=== PATIENT | female | born 2000 | race Caucasian/White ===

== ENCOUNTER 2021-10-13 10:01 | Outpatient (CLI) | payer OTHER, SELFPAY ==
[2021-10-13 10:21] LABS: Absolute Lymphocyte Count 1.53 X10^3/uL (0.83-4.51); Absolute Neutrophil Count 6.1 X10^3/uL (2.0-7.7); Basophil# 0.03 X10^3/uL; Basophil% 0.4 % (0-1); Eosinophil# 0.11 X10^3/uL; Eosinophils% 1.3 % (0-5); Hematocrit 37.1 % (37-47); Hemoglobin 12.4 g/dL (12.0-15.0); Lymphocyte # 1.53 X10^3/ul (0.83-4.51); Lymphocyte % 18.2 % (19-41); Mean Corp Hgb Conc 33.4 g/dL (32-36); Mean Corpuscular Volume 83.7 fL (81-99); Mean Platelet Vol. 9.2 fl (6.2-12.0); Monocyte# 0.59 X10^3/uL; NRBC Flagged by Analyzer 0 % (0-5); Neutrophil # 6.11 X10^3/uL (2.7-7.7); Neutrophil % 72.9 % (47-70); Platelet Count 291 K/mm3 (150-450); RBC Distribution Width CV 13.4 % (11.6-14.6); RBC Distribution Width SD 41.6 fl (35.1-43.9); Red Blood Count 4.43 M/mm3 (4.2-5.4); White Blood Count 8.4 K/mm3 (4.4-11.0)
[2021-10-13 11:27] LABS: HIV - WCH Non-Reactive (Nonreactive); Hepatitis B Surface Antigen Non-Reactive (Nonreactive); Hepatitis C Antibody Non-Reactive (Nonreactive); Rubella IgG Reactive (Nonreactive); Syphilis Antibodies Non-reactive
[2021-10-13 11:41] LABS: Amphetamine Urine VISTA NEGATIVE (<1000 ng/mL); Barbiturate Urine VISTA NEGATIVE (< 200 ng/mL); Benzodiazepine Urine VISTA NEGATIVE (< 200 ng/mL); Cocaine Urine VISTA NEGATIVE (< 300 ng/mL); Ecstacy Urine VISTA NEGATIVE (< 500 ng/mL); Methadone Urine VISTA NEGATIVE (< 300 ng/mL); PCP Urine VISTA NEGATIVE (< 25 ng/mL); THC Urine VISTA NEGATIVE (< 50 ng/mL); Vista UDS pH Range 6
[2021-10-15 00:06] LABS: Chlamydia By Nucleic Acid AMP Negative (Negative)
[2021-10-17 13:26] LABS: Gonococcus By Nucleic Acid AMP Negative (Negative)
[2021-10-17 21:47] LABS: HPV Reflexed? NOT INDICATED
== END 2021-10-13 23:59 | disposition short-term general hospital (02) ==
PROVIDERS: Referring Provider Obstetrics & Gynecology; Visit Provider Obstetrics & Gynecology
DX: Z34.90 Encounter for supervision of normal pregnancy, unspecified, unspecified trimester (principal)
CPT/HCPCS: 36415; 80307; 85025; 86703; 86762; 86780; 86803; 86850; 86900; 86901; 87086; 87088; 87340; 87491; 87591; 88175; G0145

== ENCOUNTER → 2022-02-27 | Outpatient (CLI) | payer OTHER, SELFPAY ==
[2022-02-27 12:43] LABS: Absolute Lymphocyte Count 1.31 X10^3/uL (0.83-4.51); Absolute Neutrophil Count 6.2 X10^3/uL (2.0-7.7); Basophil# 0.01 X10^3/uL; Basophil% 0.1 % (0-1); Eosinophil# 0.09 X10^3/uL; Eosinophils% 1.1 % (0-5); Hematocrit 34.4 % (37-47); Hemoglobin 11.3 g/dL (12.0-15.0); Lymphocyte # 1.31 X10^3/ul (0.83-4.51); Lymphocyte % 16.2 % (19-41); Mean Corp Hgb Conc 32.8 g/dL (32-36); Mean Corpuscular Hgb 28.3 pg (27.0-32.0); Mean Platelet Vol. 9.2 fl (6.2-12.0); NRBC Flagged by Analyzer 0 % (0-5); Neutrophil # 6.21 X10^3/uL (2.7-7.7); Neutrophil % 76.9 % (47-70); Platelet Count 303 K/mm3 (150-450); RBC Distribution Width CV 13.1 % (11.6-14.6); RBC Distribution Width SD 40.8 fl (35.1-43.9); White Blood Count 8.1 K/mm3 (4.4-11.0)
[2022-02-27 13:03] LABS: Glucose Challenge Gest 1H 50g 139 mg/dL (70-140)
== END | disposition home or self-care (01) ==
LOC: PAVLAB 11:11 → LAB 11:18
PROVIDERS: Referring Provider Obstetrics & Gynecology; Visit Provider Obstetrics & Gynecology
DX: Z13.1 Encounter for screening for diabetes mellitus (principal)
CPT/HCPCS: 36415; 82950; 85025

== ENCOUNTER → 2022-03-03 | Outpatient (CLI) | payer OTHER, SELFPAY ==
[2022-03-03 07:35] LABS: Glucose GTT-Gestation. Fasting 91 mg/dL (<105)
[2022-03-03 09:19] LABS: Glucose GTT-Gestational 1 Hr 153 mg/dL (<190)
[2022-03-03 09:35] LABS: Glucose GTT-Gestational 2 Hr 131 mg/dL (<165)
[2022-03-03 10:54] LABS: Glucose GTT-Gestational 3 Hr 115 L (<145)
== END | disposition home or self-care (01) ==
PROVIDERS: Referring Provider Obstetrics & Gynecology; Visit Provider Obstetrics & Gynecology
DX: Z13.1 Encounter for screening for diabetes mellitus (principal)
CPT/HCPCS: 36415; 82951; 82952

== ENCOUNTER → 2022-04-24 | Outpatient (CLI) | payer OTHER, SELFPAY | END | disposition home or self-care (01) | PROVIDERS: Visit Provider Obstetrics & Gynecology | DX: Z34.03 Encounter for supervision of normal first pregnancy, third trimester (principal) | CPT/HCPCS: 87081 ==

== ENCOUNTER 2022-05-26 02:25 | Inpatient (IN) | payer OTHER, SELFPAY ==
[2022-05-26] VITALS (193 sets, daily range): BP systolic 93–178; BP diastolic 44–107; PULSE 76–140; RESP 12–18; TEMP 36.3–36.9; O2SAT 89–100; BMI 38.4
--- NOTE | 2022-05-26 02:46 | HP.PCM.OB_ITS ---
HPI - General General Date of Admission: 05/26/22 HPI Narrative SPRING BURR, is a 22 F who presents with contractions and elevated blood pressure no vb lof admits good fm no motta bv Maternal Data Information DOMENICO Calculator Estimated Delivery Date Method Current WG Current Estimate 05/21/22 LMP (Certain) 40w 5d PFSH PFSH Home Medications vitamin no.102-iron 90 mg-folate 1 mg-dha 200 mg capsule 1 cap PO DAILY 10/05/21 [History Last Taken Unknown] Allergy/AdvReac Type Severity Reaction Status Date / Time No Known Allergies Allergy Verified 05/26/22 02:08 Social History household members: spouse housing: house current occupational status: employed current occupation: [employer] pets and animals: Yes history of recent travel: No sexually active: Yes Smoking Status: Never smoker alcohol intake: never substance use type: does not use caffeine: Yes seatbelt use: always do you feel safe at home: Yes 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 History 1 Elective abortions Hx Para Spontaneous abortions Hx # Term Pregnancies Ectopic pregnancies Hx # Pregnancies Multiple births # of living children Visit Details Expected Delivery Route/Plan Labor Preferences- CB/BF classes: encouraged labor support person: Antonio labor intervention preferences: [] pain management options preferred: limited intervention cut cord/dad catch: yes : pump PP control planned: discussed discussed possible routes of delivery and associated risks: [] special requests: [] Plans Covid status: discussed Flu vaccine: discussed Tdap vaccine: given Rhogam: NA LARC form signed:yes movement and labor precautions reviewed. Problem list reviewed and updated with the most current plan of care details and appropriate orders placed. Relevant counseling for the gestational age provided. Continue routine care and follow up unless otherwise noted in visit notes/problem list details OB Flowsheet Initial Weight: 180 lb Date -?-?-?-?-?-?-?-?-?-?-?-?- EGA Weight BP Urine Prot -?-?-?-?-?-?-?-?-?-?-?-?- Glucose FHR FuHt Pres Dilation -?-?-?-?-?-?-?-?-?-?-?-?- Effaced St Visit Note 11/10/21 -?-?-?-?-?-?-?-?-?-?-?-?- 12w 4d 184 lb (+4 lb) 130/88 Negative -?-?-?-?-?-?-?-?-?-?-?-?- Negative -?-?-?-?-?-?-?-?-?-?-?-?- JV- 2nd ob visit today. used hand held ultrasound to find heart tones (150's- 160's) 12/12/21 -?-?-?-?-?-?-?-?-?-?-?-?- 17w 1d 187 lb (+7 lb) 132/84 Negative -?-?-?-?-?-?-?-?-?-?-?-?- Negative 150 -?-?-?-?-?-?-?-?-?-?-?-?- SM- no vb addie ng doing well 01/11/22 -?-?-?-?-?-?-?-?-?-?-?-?- 21w 3d 198 lb (+18 lb) 124/76 Negative -?-?-?-?-?-?-?-?-?-?-?-?- Negative 156 -?-?-?-?-?-?-?-?-?-?-?-?- MH-No VB, LOF. G ood FM. Nl anatomy Girl! 02/06/22 -?-?-?-?-?-?-?-?-?-?-?-?- 25w 1d 206 lb (+26 lb) 132/84 -?-?-?-?-?-?-?-?-?-?-?-?- 150 25 -?-?-?-?-?-?-?-?-?-?-?-?- Sm- no vb lof go od fm noreular ctx 02/27/22 -?-?-?-?-?-?-?-?-?-?-?-?- 28w 1d 214 lb 8 oz (+34 lb 8 oz) 118/70 Negative -?-?-?-?-?-?-?-?-?-?-?-?- Negative 148 28 -?-?-?-?-?-?-?-?-?-?-?-?- MH=No VB, LOF. G ood FM. 28 wk labs, larc, tdap. 03/15/22 -?-?-?-?-?-?-?-?-?-?-?-?- 30w 3d 218 lb 4 oz (+38 lb 4 oz) 116/70 Negative -?-?-?-?-?-?-?-?--?-?-?-?- Negative 133 32 -?-?-?-?-?-?-?-?-?-?-?-?- JV- no complaint s today. no lof, vaginal bleeding, or dec fm. 03/27/22 -?-?-?-?-?-?-?-?-?-?-?-?- 32w 1d 222 lb 2 oz (+42 lb 2 oz) 117/74 Negative -?-?-?-?-?-?-?-?-?-?-?-?- Negative 140 34 -?-?-?-?-?-?-?-?-?-?-?-?- SM- no vb lof go od fm nor egular ctx 04/12/22 -?-?-?-?-?-?-?-?-?-?-?-?- 34w 3d 228 lb (+48 lb) 118/72 Negative -?-?-?-?-?-?-?-?-?-?-?-?- Negative 151 35 -?-?-?-?-?-?-?-?-?-?-?-?- MH-NO Vb, LOF. G ood FM. 04/24/22 -?-?-?-?-?-?-?-?-?-?-?-?- 36w 1d 234 lb 2 oz (+54 lb 2 oz) 131/84 Negative -?-?-?-?-?-?-?-?-?-?-?-?- Negative 145 36 Cephalic -?-?-?-?-?-?-?-?-?-?-?-?- SM- no vb lof go od fm no regular ctx SM- no vb lof good fm no reg ular ctx gbs 05/08/22 -?-?-?-?-?-?-?-?-?-?-?-?- 38w 1d 236 lb (+56 lb) 132/86 Negative -?-?-?-?-?-?--?-?-?-?-?-?- Negative 150 38 Cephalic 0 -?-?-?-?-?-?-?-?-?-?-?-?- SM- no vb lof go od fm no regular ctx 05/17/22 -?-?-?-?-?-?-?-?-?-?-?-?- 39w 3d 240 lb 8 oz (+60 lb 8 oz) 130/86 Trace -?-?-?-?-?-?-?-?-?-?-?-?- Negative 145 38 Cephalic 1 -?-?-?-?-?-?-?-?-?-?-?-?- -3 JV- exam difficult today external os at least one cm. labor precautions discussed. no complaints of headche, blurry vision, ruq pain.. 05/23/22 -?-?-?-?-?-?-?-?-?-?-?-?- 40w 2d 241 lb 2 oz (+61 lb 2 oz) 138/82 Negative -?-?-?-?-?-?-?-?-?-?-?-?- Negative 148 Cephalic 1 -?-?-?-?-?-?-?-?-?-?-?-?- 70 -3 JV-no lof, vag bleeding, or dec fm. she is requesting IOL 05/26/22 -?-?-?-?-?-?-?-?-?-?-?-?- 40w 5d 238 lb (+58 lb) 149/105 161/107 156/100 -?-?-?-?-?-?-?-?-?-?-?-?- -?-?-?-?-?-?-?-?-?-?-?-?- NST FHR Rate Baby A Baseline: 140 Variability:: Moderate Accelerations:: 15 x 15 Decelerations:: None NST Reactive:: Yes FHR Category:: Category I Uterine Activity:: q3-5 ROS Constitutional Constitutional: Reports systems reviewed and no addt'l complaints, except as documented ENT HEENT: Reports systems reviewed and no addt'l complaints, except as documented Cardiovascular Cardiovascular: Reports systems reviewed and no addt'l complaints, except as documented Respiratory/Chest Respiratory/Chest: Reports systems reviewed and no addt'l complaints, except as documented Gastrointestinal Gastrointestinal: Reports systems reviewed and no addt'l complaints, except as documented and nausea; Denies abdominal pain Genitourinary Genitourinary: Reports systems reviewed and no addt'l complaints, except as documented, contractions Details: present and frequency (regular ) and movement Details: present Musculoskeletal Musculoskeletal: Reports systems reviewed and no addt'l complaints, except as documented Integumentary Integumentary: Reports as per HPI Neurologic Neurologic: Reports systems reviewed and no addt'l complaints, except as documented Endocrine Endocrinology: Reports systems reviewed and no addt'l complaints, except as documented Vital Signs Vital Signs Vital Signs: 05/26/22 01:59 05/26/22 01:59 05/26/22 01:59 Temperature Temperature Source Pulse Rate 116 H Blood Pressure 149/105 H BP Systolic 149 BP Diastolic 105 Pulse Ox 99 05/26/22 01:59 05/26/22 01:59 05/26/22 02:04 Temperature 97.8 F Temperature Source Temporal Pulse Rate 113 H Blood Pressure BP Systolic BP Diastolic Pulse Ox 05/26/22 02:04 05/26/22 02:09 05/26/22 02:09 Temperature Temperature Source Pulse Rate 111 H Blood Pressure BP Systolic BP Diastolic Pulse Ox 99 99 05/26/22 02:14 05/26/22 02:14 05/26/22 02:15 Temperature Temperature Source Pulse Rate 106 H Blood Pressure 161/107 H BP Systolic 161 BP Diastolic 107 Pulse Ox 99 05/26/22 02:15 05/26/22 02:19 05/26/22 02:19 Temperature Temperature Source Pulse Rate 109 H 110 H Blood Pressure BP Systolic BP Diastolic Pulse Ox 99 05/26/22 02:24 05/26/22 02:24 05/26/22 02:29 Temperature Temperature Source Pulse Rate 115 H 116 H Blood Pressure BP Systolic BP Diastolic Pulse Ox 99 05/26/22 02:29 05/26/22 02:31 05/26/22 02:31 Temperature Temperature Source Pulse Rate 100 Blood Pressure 156/100 H BP Systolic 156 BP Diastolic 100 Pulse Ox 99 05/26/22 02:34 05/26/22 02:34 05/26/22 02:39 Temperature Temperature Source Pulse Rate 110 H 114 H Blood Pressure BP Systolic BP Diastolic Pulse Ox 98 05/26/22 02:39 05/26/22 02:44 05/26/22 02:44 Temperature Temperature Source Pulse Rate 110 H Blood Pressure BP Systolic BP Diastolic Pulse Ox 100 98 Weight Weight: 238 lb Body Mass Index (BMI) 38.4 Physical Exam Const alert, oriented x3 and healthy appearing Constitutional Narrative: uncomfortable with contractions HEENT normocephalic and moist oral mucous membranes Head and Scalp: atraumatic Neck full ROM, no lymphadenopathy, supple and thyroid normal General: trachea midline Thyroid: thyroid normal Lymph Lymphatic: no lymphadenopathy noted Chest inspection of chest normal Resp normal respiratory effort Cardio regular rate GI normal to inspection, nondistended, normoactive bowel sounds, soft to palpation and non-tender Inspection: gravid external exam normal Bimanual Exam - Vag & Uterus: uterus non-tender Manual OB Exam: estimated gestational size appropriate, presentation cephalic, dilated, effaced and station Extremity normal to inspection General Extremity: Negative for edema Skin no rashes or lesions noted Neuro deep tendon reflexes 2+ bilaterally Motor Exam: strength 5/5 throughout and clonus absent Psych mental status grossly normal Labs Labs Labs: Blood Type O POSITIVE Antibody Screen NEGATIVE Hct 34.4 % (37-47) L Hgb 11.3 g/dL (12.0-15.0) L Syphilis Total Ab Non-reactive Rubella IgG Antibody Reactive (Nonreactive) Hep Bs Antigen Non-Reactive (Nonreactive) Chlamydia DNA (CHITO) Negative (Negative) Neisseria gonorrhoeae DNA ([facility]ITO) Negative (Negative) HIV 1&2 Antibody Non-Reactive (Nonreactive) Glucose 1 Hr 50 gm 139 mg/dL (70-140) Assessment & Plan (1) Abnormal glucose affecting : COMMENT: nl 3 hr gtt (2) Supervision of normal first : QUALIFIERS: Trimester: third trimester Qualified Code(s): Z34.03 - Encounter for supervision of normal first , third trimester COMMENT: PRR DOMENICO 05/21/22 girl Chelita spouse: antonio (3) : QUALIFIERS: Weeks of gestation: 39 weeks Qualified Code(s): Z3A.39 - 39 weeks gestation of COMMENT: GBS neg. nipt carrier ntd screening declined. anatomy nl (4) Gestational hypertension: COMMENT: admit IOL if doesn't make cervical change PLAN: Plan Patient presents IAL, plan expectant management for , pitocin/AROM PRN if needed. Pain management: plans epidural. GBS neg. Management of any complications: none I have reviewed the [facility] and made any clinically relevant updates.
[2022-05-26 02:58] LABS: Absolute Lymphocyte Count 1.71 X10^3/uL (0.83-4.51); Absolute Neutrophil Count 8.4 X10^3/uL (2.0-7.7); Basophil# 0.02 X10^3/uL; Basophil% 0.2 % (0-1); Eosinophil# 0.09 X10^3/uL; Eosinophils% 0.8 % (0-5); Hematocrit 34.7 % (37-47); Hemoglobin 10.8 g/dL (12.0-15.0); Lymphocyte # 1.71 X10^3/ul (0.83-4.51); Lymphocyte % 15.7 % (19-41); Mean Corp Hgb Conc 31.1 g/dL (32-36); Mean Corpuscular Hgb 25.3 pg (27.0-32.0); Mean Corpuscular Volume 81.3 fL (81-99); Mean Platelet Vol. 10.2 fl (6.2-12.0); Monocyte# 0.64 X10^3/uL; Monocyte% 5.9 % (0-10); NRBC Flagged by Analyzer 0 % (0-5); Neutrophil # 8.39 X10^3/uL (2.7-7.7); Neutrophil % 76.8 % (47-70); Platelet Count 328 K/mm3 (150-450); RBC Distribution Width CV 15.3 % (11.6-14.6); RBC Distribution Width SD 44.1 fl (35.1-43.9); Red Blood Count 4.27 M/mm3 (4.2-5.4); White Blood Count 10.9 K/mm3 (4.4-11.0)
[2022-05-26] MEDS: Lactated Ringers 1,000 ML 50 ML IV ×3 (03:05→19:22)
[2022-05-26] MEDS: Labetalol (Prefilled) 20 MG/4 ML IV ×3 (03:08→21:03)
[2022-05-26] MEDS: Magnesium Sulfate 4gm/100mL 4 GM/100 ML IV.SOLN. IV ×2 (03:10→21:20)
[2022-05-26 03:13] LABS: AST(SGOT) 26 U/L (15-37); Alanine Aminotransfer ALT/SGPT 20 U/L (13-56); Creatinine, Serum 0.74 mg/dL (0.55-1.02); EST Glomerular Filtration Rate 103 mL/min (>60); Est Glom Filt Rate - Afr Amer 124 mL/min (>60); Estimated Creatinine Clearance 109.74 ml/min; Uric Acid 4.8 mg/dL (2.6-6.0)
[2022-05-26] MEDS: Magnesium Sulfate 4gm/100mL 2 GM/50 ML IV.SOLN. IV (03:29)
[2022-05-26] MEDS: Magnesium Sulfate 20 GM/500 ML BAG IV ×2 (03:42→20:00)
[2022-05-26] MEDS: Labetalol 100 MG Tablet PO ×3 (04:53→20:11)
[2022-05-26 06:26] LABS: Protein, Urine (Random) 56.4 mg/dL (<11.9); Protein:Creat Ratio 455 mg/g CRE (0-200)
[2022-05-26] MEDS: Oxytocin 30 units/NS 500 ml 30 UNITS/500 ML IV.SOLN IV (06:35)
[2022-05-26] MEDS: LACTATED RINGERS 500 ML 999 ML IV ×3 (09:17→15:12)
[2022-05-26] MEDS: fentaNYL-bupivacaine (epidural) 100 ML BAG EPIDURAL ×4 (10:11→22:15)
[2022-05-26] MEDS: Ondansetron 4 MG/2 ML Vial IV (20:19)
[2022-05-26] MEDS: 0.9% Saline Lock 10 ML Syringe IV ×3 (20:20→21:25)
[2022-05-26] MEDS: fentaNYL 100 MCG/2 ML Ampul IV (21:25)
--- NOTE | 2022-05-26 21:46 | NURSING ---
magnesium sulfate 4gm bolus completed. rate changed to 2g/hr. verified with Guerrero DE LA CRUZ
--- NOTE | 2022-05-26 21:54 | PCM.PN.BLA ---
Progress Note cervical swelling now with increased pain but 6 cm, magnesium restarted with a bolus due to increased hyperreflexia and severely elevated bps. now redosed the epidural and more comfortable fht 130 min to mod variability no decels cat II overall reassuring
[2022-05-27] VITALS (70 sets, daily range): BP systolic 90–146; BP diastolic 52–82; PULSE 91–118; RESP 16–18; TEMP 36.1–37.1; O2SAT 91–100
[2022-05-27] MEDS: fentaNYL-bupivacaine (epidural) 100 ML BAG EPIDURAL ×2 (01:15→06:53)
[2022-05-27] MEDS: 0.9% Saline Lock 10 ML Syringe IV ×2 (01:26→01:33)
[2022-05-27] MEDS: Ondansetron 4 MG/2 ML Vial IV (01:33)
[2022-05-27] MEDS: Magnesium Sulfate 20 GM/500 ML BAG IV ×2 (06:53→17:00)
[2022-05-27] MEDS: Oxytocin 30 units/NS 500 ml 30 UNITS/500 ML IV.SOLN 334 UNITS IV (08:05)
--- NOTE | 2022-05-27 08:43 | EX.PCM.OBRPT ---
Assessment & Plan (1) : QUALIFIERS: Weeks of gestation: 39 weeks Qualified Code(s): Z3A.39 - 39 weeks gestation of COMMENT: GBS neg. nipt carrier ntd screening declined. anatomy nl (2) Supervision of normal first : QUALIFIERS: Trimester: third trimester Qualified Code(s): Z34.03 - Encounter for supervision of normal first , third trimester COMMENT: PRR DOMENICO 05/21/22 girl Chelita spouse: hung (3) Abnormal glucose affecting : COMMENT: nl 3 hr gtt (4) Gestational hypertension: COMMENT: admit IOL if doesn't make cervical change (5) Preeclampsia, severe: COMMENT: magnesium sulfate started and labetalol IV given Maternal Data Information DOMENICO Calculator Estimated Delivery Date Method Current WG Current Estimate 05/21/22 LMP (Certain) 40w 6d Vaginal Delivery Operative Information Date of Procedure: 05/27/22 Pre-Operative Diagnosis: IOL pree Post-Operative Diagnosis: same Surgery / Procedure Performed: Spontaneous Vaginal Delivery Type of Anesthesia: Epidural and Pudendal Block Special Medications: none Estimated Blood Loss: 400 Fluids Replaced: crystalloid Findings Description of Procedure: patient had inadequate anesthesia therefore was prepped vaginally and a pudendal block injected bilaterally 2cm medially and posterior to the ischial spines without complication. Patient began pushing and delivered the head in the YARELY presentation. The head was delivered atraumatically . The anterior and posterior shoulders delivered without complication followed by the rest of the infant and the was placed on the maternal abdomen. Delayed cord clamping was employed for approximately 60 seconds. Cord was clamped and cut and gentle traction was applied to the cord and the placenta delivered spontaneously immediately following it was noted to be intact with three-vessel cord. The perineum and vagina were inspected and noted to have a second degre laceration repaire din the usual fashion with 3-0 rpaidee. EBL was 400. Patient and infant tolerated delivery well. Presentation: YARELY Amniotic Membrane Rupture Type: Artificial Amniotic Fluid Description: Clear Placental Delivery Description: Spontaneous Placenta Disposition: [facility] Cord Vessel Description: 3 Vessels Cord Entanglement: None Infant A Gender: Female Delayed Cord Clamping: Yes Post Vaginal Delivery Medications Given After Delivery: IV Pitocin Episiotomy Description: None Laceration: Perineal Extension/lac and 2nd degree Complication Complications: None Procedures Urinary/Genital [id number]: [id number] Vaginal Delivery global pkg
--- NOTE | 2022-05-27 08:45 | DCINST_ITS ---
Discharge Instructions Diet Discharge Diet: No restrictions Activity Discharge Activity: Return to Normal Activity, May Drive, May Shower and May Take a Tub Bath (in 4 weeks) May resume sexual activity in: 6-8 weeks (after seen by OB provider) Weight Bearing Status: Full weight bearing Lifting Restrictions: none Dressing / Incision Call your doctor if you observe: Fever of 101 or Higher, Inability to urinate, Using more than 1 pad per hour (for more than 2 hours in a row or more), Shortness of breath, Dizziness, Chest pain and - (headache not controlled with tylenol, change in vision) Follow Up Care When: in 6 weeks for visit, call the office to make the appointment. If you had elevated blood pressures call the office to be seen within 1 week. Test Results: Test results from this visit will be discussed in further detail at your follow- up appointment, if applicable. Discharge Plan Admission Admit Date/Time: 05/26/22 02:25 Attending Provider: Hina Vazquez Primary Care Provider: Care Physician,Nancy Primary Discharge Orders/Prescriptions Prescriptions: No Action PNV [id number] 90 mg iron- 1 mg-200 mg capsule 1 cap PO DAILY Referrals / Follow Up: Care Physician,No Primary [Primary Care Provider] - Disposition Disposition (needs filled in before D/C Order can be placed): Home, Self Care
[2022-05-27] MEDS: Naproxen 500 MG Tablet PO (10:28)
[2022-05-27] MEDS: Enoxaparin 40 MG/0.4 ML Syringe SC (23:38)
[2022-05-28] VITALS (10 sets, daily range): BP systolic 100–126; BP diastolic 50–78; PULSE 79–100; RESP 14–18; TEMP 36.6–36.8; O2SAT 95–98
[2022-05-28] MEDS: Magnesium Sulfate 20 GM/500 ML BAG IV (03:39)
--- NOTE | 2022-05-28 06:21 | PCM.PN.OB ---
Subjective Subjective Patient doing well without complaints. Tolerating PO. Ambulating and voiding without difficulty. feeding well. Denies chest pain, shortness of breath, calf pain/swelling, fevers, chills, lightheadedness. Objective Data Objective Data Vital Signs: Vital Signs Temp Pulse Resp BP Pulse Ox O2 Del Method 98.1 F 95 18 114/57 L 97 Room Air 05/28/22 00:22 05/28/22 05:42 05/28/22 05:42 05/28/22 05:42 05/28/22 05:42 05/28/22 05:42 Oxygen Delivery Method Room Air Weight: 238 lb Body Mass Index (BMI) 38.4 Intake & Output: Intake and Output for Last 24 Hours 05/26/22 05/27/22 05/28/22 23:59 23:59 23:59 Intake Total 3204.17 / 3219.17 3359.63 / 3359.63 1200 / 1200 Output Total 1550 / 1650 4000 / 4000 1400 / 1400 Balance 1654.17 / 1569.17 -640.37 / -640.37 -200 / -200 Lab / Micro Data Result Diagrams: 05/26/22 02:45 05/26/22 02:45 Micro: Microbiology 05/26/22 03:10 Nasal Secretion SARS-CoV-2 Antigen (Rapid) - Final ROS Constitutional Constitutional: Reports systems reviewed and no addt'l complaints, except as documented Cardiovascular Cardiovascular: Reports systems reviewed and no addt'l complaints, except as documented Respiratory/Chest Respiratory/Chest: Reports systems reviewed and no addt'l complaints, except as documented Gastrointestinal Gastrointestinal: Reports systems reviewed and no addt'l complaints, except as documented Physical Exam Const alert, oriented x3 and no apparent distress HEENT Head and Scalp: atraumatic Resp normal respiratory effort GI soft to palpation and non-tender Bimanual Exam - Vag & Uterus: uterus non-tender Uterus Palpation: uterus fundus firm (below Umbilicus) Assessment & Plan (1) Vaginal delivery: COMMENT: SM 40 IOL severe pree girl radha (2) Preeclampsia, severe: COMMENT: magnesium sulfate to be dced at 24 hours, monitor PLAN: Plan s/p PPD # 1 1. routine post delivery care 2. breast feeding- support given 3. rh positive 4. rubella immune
[2022-05-28] MEDS: Naproxen 500 MG Tablet PO (08:55)
[2022-05-28] MEDS: Enoxaparin 40 MG/0.4 ML Syringe SC (10:55)
[2022-05-28] MEDS: Benzocaine/Lanolin/Aloe Vera 1 SPRAY EACH TOPICAL (14:56)
[2022-05-28] MEDS: Senna/Docusate Sodium 1 Tablet PO (15:13)
[2022-05-29 01:13] VITALS: BP 118/64; PULSE 94; RESP 16; TEMP 36.7
[2022-05-29 08:28] VITALS: BP 124/72; PULSE 87; RESP 16; TEMP 36.3; O2SAT 98
[2022-05-29] MEDS: Enoxaparin 40 MG/0.4 ML Syringe SC (09:41)
--- NOTE | 2022-06-01 14:57 | NURSING ---
Follow up questions asked by Raza Veloz at pt's follow up [facility] appt. She reports everything is going well and that she liked all her nurses during her hospital stay.
== END 2022-05-29 11:50 | disposition home or self-care (01) | DRG 807 ==
LOC: WPOUT 02:31 → WP 02:31
PROVIDERS: Admitting Provider Obstetrics & Gynecology; Visit Provider Obstetrics & Gynecology
DX: O14.14 Severe pre-eclampsia complicating childbirth (principal); Z37.0 Single live birth; O70.1 Second degree perineal laceration during delivery; Z3A.40 40 weeks gestation of pregnancy
CPT/HCPCS: 59025; 59050; 82565; 82570; 84156; 84450; 84460; 84550; 85025; 86850; 86900; 86901; 87426; 99218; J7120; A4216; G0378; J2405

== ENCOUNTER 2023-06-11 05:22 | Emergency (ER) | payer OTHER, SELFPAY ==
[2023-06-11 05:23] VITALS: BP 151/97; PULSE 89; RESP 18; TEMP 36.6; O2SAT 100; BMI 25.2
--- NOTE | 2023-06-11 05:39 | ED.VIS.CHEST ---
HPI History of Present Illness Chief Complaint: Chest Pain Informant: patient Onset/Context/Timing Onset: Hours (1.5) Activity at onset: sleep Timing: Continuous Quality: Positive for Heaviness Location: Substernal (Radiating straight through into back) Current Severity: Moderate Maximum Severity: Moderate Worsened By: Nothing; Not Worsened By Breathing Relieved By: Nothing Associated Symptoms: Positive for Nausea; Negative for Vomiting, Diaphoresis, Dyspnea, Cough, Fever, Lightheadedness or Palpitations Narrative Narrative: Healthy 23-year-old woke up with chest heaviness radiating into her back. Took some ibuprofen prior to arrival but no other treatment. Never had this before. No history of heart disease. No known history of reflux. [place] fine when she went to bed last night. She ate a late dinner, 8:00 and went to bed around 10:30 PM, had steak along with other things. She denies any associated symptoms to this morning. [facility] Medical History Pre-eclampsia Home Medications norethindrone acetate 1.5 mg-ethinyl estradiol 30 mcg tablet (Microgestin) 1 tab PO DAILY #63 tabs 10/11/22 [Rx Last Taken Unknown] Allergy/AdvReac Type Severity Reaction Status Date / Time No Known Allergies Allergy Verified 06/11/23 05:34 Social History household members: spouse housing: house current occupational status: employed current occupation: [employer] pets and animals: Yes history of recent travel: No sexually active: Yes Smoking Status: Never smoker alcohol intake: never substance use type: does not use caffeine: Yes seatbelt use: always do you feel safe at home: Yes 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 ROS ROS ED Constitutional Constitutional ED: Denies chills or fever(s) Eyes Eyes: Denies change in vision or diplopia ENT ENT ED: Denies rhinorrhea or sore throat Cardiovascular Cardiovascular: Reports chest pain; Denies palpitations Respiratory/Chest Respiratory/Chest: Denies cough or dyspnea Gastrointestinal Gastrointestinal: Reports nausea; Denies abdominal pain, diarrhea or vomiting Genitourinary Genitourinary ED: Denies dysuria or hematuria Musculoskeletal Musculoskeletal: Reports back pain; Denies neck pain Integumentary Denies abscess or rash Neurologic Neurologic: Denies headache(s), paresthesias or weakness Psychiatric Psychiatric: Denies anxiety or suicidal thoughts EXAM Physical Exam Const Vital Signs: 06/11/23 05:23 06/11/23 05:25 Temperature 97.9 F Temperature Source Oral Pulse Rate 89 Respiratory Rate 18 Respiratory Effort Normal Non-Labored Blood Pressure 151/97 H Blood Pressure Mean 115 Pulse Ox 100 Oxygen Delivery Method Room Air Positive well nourished and well developed General Appearance ED: well developed and NAD HEENT Reports moist mucous membranes normocephalic and atraumatic Eyes PERRL and EOMs intact bilaterally Neck full ROM and supple Resp normal respiratory effort and clear to auscultation bilaterally Cardio regular rate, regular rhythm and no murmurs Rate: tachycardic GI non-tender and non-distended Auscultation: normoactive bowel sounds Palpation: soft Back/Spine no CVA tenderness General Back: other FROM Extremity normal to inspection and no calf tenderness General Extremety ED: Negative for edema, pulses abnormal or tenderness General Extremity: Negative for edema or pulses abnormal Neuro oriented x3, CN's II-XII intact bilaterally and no sensory deficits noted Sensorium / Orientation: awake and alert Motor Exam: strength 5/5 throughout Skin no rashes or lesions noted and no wounds Heart Score History: Slightly/Non-Suspicious ECG: Normal Age: </= 45 years Risk Factors: No Risk Factors Score: 0 MDM MDM MDM Narrative Medical decision making narrative: The symptoms are all consistent with gastroesophageal reflux. Accordingly, on my interpretation, her EKG is normal. Gave her a GI cocktail after discussing all of this, it resulted in complete resolution of her symptoms and she felt much better. Vital signs stable, her initial slightly hypertensive blood pressure was likely due to being here, on repeat it is in the 130s. She feels much better. For now I would suspect this is a 1-off episode, I discussed trying a 2-week course of a PPI if she continues to have episodes of reflux, and if she has symptoms that persist despite that, I would follow-up with her doctor. She is comfortable with that plan. Rhythm Strip Rhythm Strip: Sinus Rhythm Rate: 90 Ectopy: None EKG Initial EKG: Attestation: I personally reviewed and interpreted this EKG as follows: Interpretation: Sinus Rhythm and No Acute Injury Pattern Comments: Normal EKG Discharge Plan Triage Chief Complaint: Chest Pain ED Provider: Kavon De Paz Dx/Rx/DC Orders Clinical Impression: Chest pain due to GERD Instructions: ED GERD (Adult) Prescriptions: No Action norethindrone ac-eth estradiol [Microgestin .02/13 (21)] 1.5-30 mg-mcg tablet 1 tab PO DAILY Qty: 63 6RF Primary Care Provider: Care Physician,No Primary Referrals: Doctor,Your [Non-Staff] - As Needed Disposition Disposition: Home, Self Care
[2023-06-11] MEDS: Mag Hydrox/Al Hydrox/Simeth 30 ML UDC PO (05:49)
[2023-06-11 06:43] VITALS: BP 123/70; PULSE 76; RESP 18; O2SAT 98
== END 2023-06-11 06:44 | disposition home or self-care (01) ==
PROVIDERS: Emergency Provider Emergency Medicine; Visit Provider Emergency Medicine
DX: R07.9 Chest pain, unspecified (principal); K21.9 Gastro-esophageal reflux disease without esophagitis
CPT/HCPCS: 93005; 99285; A4216

== ENCOUNTER → 2024-08-04 | Outpatient (CLI) | payer OTHER, SELFPAY ==
[2024-08-04 12:47] LABS: ALB/GLOB Ratio 1.1 RATIO (0.9-2.4); AST(SGOT) 8 U/L (15-37); Alanine Aminotransfer ALT/SGPT 22 U/L (13-56); Alkaline Phosphatase 75 U/L (45-117); Anion Gap 7 (5-15); BUN 13 mg/dL (7-18); BUN/Creat Ratio 21.7 RATIO (10-20); Calcium,Total 9.3 mg/dL (8.5-10.1); Chloride 104 mmol/L (98-107); EST Glomerular Filtration Rate 128 mL/min (>60); Est Glom Filt Rate - Afr Amer 155 mL/min (>60); Globulin 3.8 g/dL (2.2-4.2); Glucose 88 mg/dL (74-106); Potassium 3.8 mmol/L (3.5-5.1); Protein, Total 7.8 g/dL (6.4-8.2); Sodium Level 136 mmol/L (136-145)
[2024-08-04 12:49] LABS: Protein:Creat Ratio 117 mg/g CRE (0-200)
[2024-08-04 12:51] LABS: Absolute Lymphocyte Count 1.32 X10^3/uL (0.83-4.51); Basophil# 0.03 X10^3/uL; Basophil% 0.4 % (0-1); Eosinophil# 0.04 X10^3/uL; Eosinophils% 0.6 % (0-5); Hematocrit 38.9 % (37-47); Hemoglobin 12.9 g/dL (12.0-15.0); Lymphocyte # 1.32 X10^3/ul (0.83-4.51); Lymphocyte % 19.3 % (19-41); Mean Corp Hgb Conc 33.2 g/dL (32-36); Mean Corpuscular Hgb 29.5 pg (27.0-32.0); Monocyte# 0.38 X10^3/uL; Monocyte% 5.6 % (0-10); NRBC Flagged by Analyzer 0 % (0-5); Neutrophil # 5.04 X10^3/uL (2.7-7.7); Neutrophil % 73.7 % (47-70); Platelet Count 279 K/mm3 (150-450); RBC Distribution Width CV 12.7 % (11.6-14.6); Red Blood Count 4.37 M/mm3 (4.2-5.4); White Blood Count 6.8 K/mm3 (4.4-11.0)
[2024-08-04 13:26] LABS: HIV - WCH Non-Reactive (Nonreactive); Hepatitis B Surface Antigen Non-Reactive (Nonreactive); Hepatitis C Antibody Non-Reactive (Nonreactive); Rubella IgG Reactive (Nonreactive); Syphilis Antibodies Non-reactive
[2024-08-05 21:07] LABS: Chlamydia By Nucleic Acid AMP Negative (Negative); Gonococcus By Nucleic Acid AMP Negative (Negative)
== END | disposition home or self-care (01) ==
LOC: BWCLAB 11:03
PROVIDERS: Referring Provider Obstetrics & Gynecology; Visit Provider Obstetrics & Gynecology
DX: O09.299 Supervision of pregnancy with other poor reproductive or obstetric history, unspecified trimester (principal); Z3A.00 Weeks of gestation of pregnancy not specified
CPT/HCPCS: 36415; 80053; 82570; 84156; 85025; 86703; 86762; 86780; 86803; 86850; 86900; 86901; 87086; 87340; 87491; 87591

== ENCOUNTER → 2024-12-05 | Outpatient (CLI) | payer OTHER, SELFPAY ==
[2024-12-05 11:01] LABS: Absolute Lymphocyte Count 1.81 X10^3/uL (0.83-4.51); Absolute Neutrophil Count 5.5 X10^3/uL (2.0-7.7); Basophil# 0.02 X10^3/uL; Basophil% 0.3 % (0-1); Eosinophil# 0.11 X10^3/uL; Eosinophils% 1.4 % (0-5); Hematocrit 35.1 % (37-47); Lymphocyte # 1.81 X10^3/ul (0.83-4.51); Mean Corp Hgb Conc 34.2 g/dL (32-36); Mean Corpuscular Hgb 30.3 pg (27.0-32.0); Mean Corpuscular Volume 88.6 fL (81-99); Mean Platelet Vol. 8.8 fl (6.2-12.0); Monocyte# 0.35 X10^3/uL; Monocyte% 4.4 % (0-10); NRBC Flagged by Analyzer 0 % (0-5); Neutrophil # 5.53 X10^3/uL (2.7-7.7); Neutrophil % 70.3 % (47-70); Platelet Count 236 K/mm3 (150-450); RBC Distribution Width CV 12.8 % (11.6-14.6); RBC Distribution Width SD 41.6 fl (35.1-43.9); Red Blood Count 3.96 M/mm3 (4.2-5.4); White Blood Count 7.9 K/mm3 (4.4-11.0)
[2024-12-05 11:51] LABS: ALB/GLOB Ratio 1.2 RATIO (0.9-2.4); AST(SGOT) 18 U/L (<=31); Alanine Aminotransfer ALT/SGPT 14 U/L (<=34); Albumin, Serum 3.6 g/dL (3.5-5.0); Alkaline Phosphatase 88 U/L (35-104); Anion Gap 10 (5-15); BUN 10 mg/dL (4-19); BUN/Creat Ratio 18.2 RATIO (10-20); Calcium,Total 8.9 mg/dL (7.6-11.0); Chloride 103 mmol/L (98-108); Creatinine, Serum 0.54 mg/dL (0.70-1.20); EST Glomerular Filtration Rate 130 (>60); Glucose 93 mg/dL (70-99); Potassium 3.7 mmol/L (3.3-5.1); Protein, Total 6.6 g/dL (5.9-8.4); Sodium Level 136 mmol/L (133-145)
== END | disposition home or self-care (01) ==
PROVIDERS: Referring Provider Advanced Practice Midwife; Visit Provider Advanced Practice Midwife
DX: Z34.92 Encounter for supervision of normal pregnancy, unspecified, second trimester (principal)
CPT/HCPCS: 36415; 80053; 85025

== ENCOUNTER → 2025-01-02 | Outpatient (CLI) | payer OTHER, SELFPAY ==
[2025-01-02 16:42] LABS: Absolute Lymphocyte Count 1.51 X10^3/uL (0.83-4.51); Absolute Neutrophil Count 6.8 X10^3/uL (2.0-7.7); Basophil# 0.03 X10^3/uL; Basophil% 0.3 % (0-1); Eosinophil# 0.13 X10^3/uL; Eosinophils% 1.4 % (0-5); Hematocrit 34.8 % (37-47); Hemoglobin 11.5 g/dL (12.0-15.0); Lymphocyte # 1.51 X10^3/ul (0.83-4.51); Lymphocyte % 16.6 % (19-41); Mean Corpuscular Hgb 29.3 pg (27.0-32.0); Mean Corpuscular Volume 88.5 fL (81-99); Mean Platelet Vol. 9.5 fl (6.2-12.0); Monocyte# 0.54 X10^3/uL; Monocyte% 5.9 % (0-10); NRBC Flagged by Analyzer 0 % (0-5); Neutrophil # 6.82 X10^3/uL (2.7-7.7); Platelet Count 294 K/mm3 (150-450); RBC Distribution Width CV 12.4 % (11.6-14.6); RBC Distribution Width SD 40.4 fl (35.1-43.9); Red Blood Count 3.93 M/mm3 (4.2-5.4); White Blood Count 9.1 K/mm3 (4.4-11.0)
[2025-01-02 17:42] LABS: Glucose Challenge Gest 1H 50g 67 mg/dL (70-140); HIV Nonreactive (Nonreactive); Syphilis Antibodies Nonreactive (Nonreactive)
== END | disposition home or self-care (01) ==
LOC: BWCLAB 13:16
PROVIDERS: Referring Provider Advanced Practice Midwife; Visit Provider Advanced Practice Midwife
DX: O09.299 Supervision of pregnancy with other poor reproductive or obstetric history, unspecified trimester (principal); Z3A.00 Weeks of gestation of pregnancy not specified
CPT/HCPCS: 36415; 82950; 85025; 86703; 86780

== ENCOUNTER → 2025-02-12 | Outpatient (CLI) | payer OTHER, SELFPAY ==
[2025-02-12 12:42] LABS: ROM Internal Control Test YES-OK TO RESULT pt. (Internal QC); ROM Patient Test Negative (Negative); Record Kit Lot#, ROM+ K3358
== END | disposition home or self-care (01) ==
LOC: LABSPEC 12:06
PROVIDERS: Referring Provider Advanced Practice Midwife; Visit Provider Advanced Practice Midwife
DX: O09.93 Supervision of high risk pregnancy, unspecified, third trimester (principal); Z3A.35 35 weeks gestation of pregnancy
CPT/HCPCS: 84112; 87070; 87205

== ENCOUNTER → 2025-02-16 | Outpatient (CLI) | payer OTHER, SELFPAY | END | disposition home or self-care (01) | LOC: LABSPEC 16:12 | PROVIDERS: Referring Provider Advanced Practice Midwife; Visit Provider Advanced Practice Midwife | DX: O09.93 Supervision of high risk pregnancy, unspecified, third trimester (principal); Z3A.36 36 weeks gestation of pregnancy | CPT/HCPCS: 87081 ==

== ENCOUNTER 2025-03-03 18:44 | Inpatient (IN) | payer OTHER, SELFPAY ==
[2025-03-03] VITALS (11 sets, daily range): BP systolic 122–141; BP diastolic 67–92; PULSE 69–100; RESP 14–16; TEMP 36.7–37; O2SAT 98–99; BMI 32.6
[2025-03-03] MEDS: 0.9% Saline Lock 10 ML Syringe IV ×2 (17:45→19:30)
[2025-03-03 18:15] LABS: Hemoglobin 11.6 g/dL (12.0-15.0); Mean Corp Hgb Conc 33.1 g/dL (32-36); Mean Corpuscular Hgb 27.8 pg (27.0-32.0); Mean Corpuscular Volume 83.9 fL (81-99); Mean Platelet Vol. 9.7 fl (6.2-12.0); Platelet Count 269 K/mm3 (150-450); RBC Distribution Width SD 39.4 fl (35.1-43.9); Red Blood Count 4.17 M/mm3 (4.2-5.4); White Blood Count 8.7 K/mm3 (4.4-11.0)
[2025-03-03 18:41] LABS: Protein, Urine (Random) 21.8 mg/dL (0.0-12.0); Protein:Creat Ratio 150 mg/g CRE (0-200)
--- NOTE | 2025-03-03 18:45 | HP.PCM.OB_ITS ---
HPI - General General Date of Admission: 03/03/25 Chief Complaint: headache in , high blood pressures at home. HPI Narrative SPRING BURR, is a 24 y/o @ 38 weeks 1 day who presents to L&D with the complaint of new onset frontal headache and some elevated blood pressures at home that were in the severe range. She has a history of pre-eclampsia with her last that happened at 40 weeks. BP here is currently 140's/80's. Prot: cr ratio is normal, however she still has the headache and mildly elevated pressures. She denies epigastric pain, shortness of breath, chest pain, or visual changes. Maternal Data Information DOMENICO Calculator Estimated Delivery Date Method Current WG Current Estimate 03/16/25 Ultrasound #1 38w 1d Other Estimates 03/13/25 LMP (Certain) 38w 4d PFSH PFS Medical History Pre-eclampsia Home Medications ?Medication ?Instructions ?Recorded ?Last Taken ?Type PNV 153-FA 400 mcg-om3 35 mg-dha 1 tab PO DAILY pregna ncy 08/01/24 03/02/25 08:00 History 25 mg-epa 5 mg-fish oil chew tablet 1 TAB sertraline 50 mg tablet 75 mg PO QDAY depression 03/02/25 08:00 History 75 mg aspirin 81 mg tablet,delayed 81 mg PO DAILY 03/03/25 0 03/02/25 08:00 History release (Adult Low Dose Aspirin) 81 mg Allergy/AdvReac Type Severity Reaction Status Date / Time No Known Allergies Allergy Verified 03/03/25 17:25 Family History Grandmother Cancer Mets to brain, lung, bone Breast cancer Paternal Social History adopted: No household members: spouse and children housing: house number of children: 1 current occupational status: employed current occupation: [employer] pets and animals: Yes (Avoid litterbox) pets and animals: cat(s) history of recent travel: No sexually active: Yes Smoking Status: Never smoker alcohol intake: current alcohol intake frequency: holidays/special occasions only details: not while substance use type: does not use well-balanced diet: daily or most days caffeine: No eating out: rarely or never during the past year weight has: decreased > 10 lbs what type of physical activity do you participate in: none daniel/sikhism: None seatbelt use: always do you feel safe at home: Yes additional social history: Antonio Burr- [employer] Te[employer]her History 2 Elective abortions Hx Para 1 Spontaneous abortions Hx # Term Pregnancies Ectopic pregnancies Hx # Pregnancies Multiple births # of living children 1 Past Pregnancies Del. Date Name GA/Weeks Outcome Route Bth Weight Gen Labor Lgth Anesthesia Del Locatn Provider FOB 05/27/22 Chelita 40 live - full term Female epid ural [facility] SM Antonio Delivery Date: 05/27/22 Last Updated by: Petty Villar SM 40w IOL Pre E Visit Details Expected Delivery Route/Plan Labor Preferences- CB/BF classes:no labor support person: Antonio labor intervention preferences: [] pain management options preferred: epidural if requested cut cord/dad catch: yes : yes PP control planned: discussed discussed possible routes of delivery and associated risks: [] special requests: [] Plans Covid status: [] Flu vaccine: declined Tdap vaccine: given Rhogam: na LARC form signed: yes Problem list reviewed and updated with the most current plan of care details and appropriate orders placed. Relevant counseling for the gestational age provided. Continue routine care and follow up unless otherwise noted in visit notes/problem list details OB Flowsheet Initial Weight: 163 lb Date -?-?-?-?-?-?-?-?-?-?-?-?- EGA Weight BP Urine Prot -?-?-?-?-?-?-?-?-?-?-?-?- Glucose FHR FuHt Pres Dilation -?-?-?-?-?-?-?-?-?-?-?-?- Effaced St Visit Note 08/04/24 -?-?-?-?-?-?-?-?-?-?-?-?- 8w 0d 162 lb 2 oz (-14 oz) 123/80 -?-?-?-?-?-?-?-?-?-?-?-?- 165 -?-?-?-?-?-?-?-?-?-?-?-?- SM- CRL cons wit h LMP measuring 8w3d SM- CRL cons with LMP measur ing 8w0d 09/01/24 -?-?-?-?-?-?-?-?-?-?-?-?- 12w 0d 163 lb (+0 oz) 106/67 Negative -?-?-?-?-?-?-?-?-?-?-?-?- Negative 157 -?-?-?-?-?-?-?--?-?-?-?-?- KW- vb/cramping. anatomy US ordered 10/02/24 -?-?-?-?-?-?-?-?-?-?-?-?- 16w 3d 164 lb 2 oz (+1 lb 2 oz) 110/72 Negative -?-?-?-?-?-?-?-?-?-?-?-?- Negative 150 -?-?-?-?-?-?-?-?-?-?-?-?- SM- no vbc rampi ng 11/05/24 -?-?-?-?-?-?-?-?-?-?-?-?- 21w 2d 174 lb 2 oz (+11 lb 2 oz) 104/65 Negative -?-?-?-?-?-?-?-?-?-?-?-?- Negative 145 -?-?-?-?-?-?-?-?-?-?-?-?- KW- no vb/crampi ng. good fm. US reviewed 12/05/24 -?-?-?-?-?-?-?-?-?-?-?-?- 25w 4d 181 lb 6 oz (+18 lb 6 oz) 106/71 Negative -?-?-?-?-?-?-?-?-?-?-?-?- Negative 130 26 -?-?-?-?-?-?-?-?-?-?-?-?- KW- no vb/lof/ct x. good fm has been having headaches and dizzy spells. pre e labs today and compression hose 01/02/25 -?-?-?-?-?-?-?-?-?-?-?-?- 29w 4d 189 lb 4 oz (+26 lb 4 oz) 124/77 Negative -?-?-?-?-?-?-?-?-?-?-?-?- Negative 140 30 -?-?-?-?-?-?-?-?-?-?-?-?- KW- No vb/lof/ct x. good fm. headaches better. glucose labs today. 01/14/25 -?-?-?-?-?-?-?-?-?-?-?-?- 31w 2d 195 lb 4 oz (+32 lb 4 oz) 110/78 Negative -?-?-?-?-?-?-?-?-?-?-?-?- Negative 135 31 -?-?-?-?-?-?-?-?-?-?-?-?- MH-No Vb, LOF. G ood FM. Larc, tdap 01/26/25 -?-?-?-?-?-?-?-?-?-?-?-?- 33w 0d 196 lb (+33 lb) 111/75 Negative -?-?-?-?-?-?-?-?-?-?-?-?- Negative 150 33 -?-?-?--?-?-?-?-?-?-?-?-?- KW- no vb/lof/ct x. good fm. GBS at 36 weeks. 02/11/25 -?-?-?-?-?-?-?-?-?-?-?-?- 35w 2d 201 lb 6 oz (+38 lb 6 oz) 113/78 Negative -?-?-?-?-?-?-?-?-?-?-?-?- Negative 148 36 -?-?-?-?-?-?-?-?-?-?-?-?- JV-no lof, efrain al bleeding, or dec fm. 02/12/25 -?-?-?--?-?-?-?-?-?-?-?-?- 35w 3d 200 lb 8 oz (+37 lb 8 oz) 119/80 Negative -?-?-?-?-?-?-?-?-?-?-?-?- Negative 135 36 -?-?-?-?-?-?-?-?-?-?-?-?- KW- work in for possible ROM. cramping since yesterday and reports feeling wet since then. good fm. ROM and GBS today. PUSHPA by - KW- work in for possible ROM . cramping since yesterday and reports feeling wet since then. good fm. ROM and GBS today. PUSHPA by - 13. 02/16/25 -?-?-?-?-?-?-?-?-?-?-?-?- 36w 0d 202 lb 4 oz (+39 lb 4 oz) 118/80 Negative -?-?-?-?-?-?-?-?-?-?-?-?- Negative 130 37 Cephalic 2 .5 -?-?-?-?-?-?-?-?-?-?-?-?- 50 -2 KW- no vb/ lof/ctx. good fm. no concerns today 02/24/25 -?-?-?-?-?-?-?-?-?-?-?-?- 37w 1d 203 lb 4 oz (+40 lb 4 oz) 108/70 Negative -?-?-?-?-?-?-?-?-?-?-?-?- Negative 150 38 Cephalic 3 -?-?-?-?-?-?-?-?-?-?-?-?- 50 -2 -No VB, LOF. Irreg CTX. Good FM. GBS neg ROS Constitutional Constitutional: Denies change in weight, fatigue, fever(s), headache(s), poor appetite or weakness Eyes Eyes: Denies blurry vision, change in vision, seeing flashes or spots in vision ENT HEENT: Denies dizziness, headache(s), loss taste/smell or sore throat Cardiovascular Cardiovascular: Denies chest pain, dizziness, dyspnea, irregular heart rhythm, leg edema, palpitations, rapid heart rate or vomiting Respiratory/Chest Respiratory/Chest: Denies chest tightness, cough, dyspnea or breast pain Gastrointestinal Gastrointestinal: Denies abdominal pain, anorexia, constipation, cramping, diarrhea, hemorrhoids, vomiting or weight changes Genitourinary Genitourinary: Denies dysuria, flank pain, genital lesions, genital pain, urinary frequency or urinary urgency Musculoskeletal Musculoskeletal: Denies back pain, difficulty walking, joint pain, limited range of motion, muscle cramps or numbness Integumentary Integumentary: Denies lesions or unusual bruising Neurologic Neurologic: Denies abnormal movements, abnormal speech, dizziness, numbness, seizure-like activity or syncope Psychiatric Psychiatric: Denies anxiety, behavioral changes, change in appetite, change in libido, cognitive impairment, confusion, depression, difficulty concentrating, hallucinations or suicidal thoughts Endocrine Endocrinology: Denies excessive sweating, polydipsia or polyuria Hematologic/Lymphatic Hematologic/Lymphatic: Denies easy bleeding, easy bruising or lymphadenopathy Allergic/Immunologic Allergic/Immunologic: Denies itchy eyes, lip swelling, seasonal rhinorrhea, rhinitis, throat swelling, tongue swelling, eczemia, wheezing or asthma Vital Signs Vital Signs Vital Signs: 03/03/25 17:33 03/03/25 17:33 03/03/25 17:33 Temperature Temperature Source Temporal Pulse Rate Respiratory Rate 16 Blood Pressure BP Systolic BP Diastolic Pulse Ox 99 03/03/25 17:33 03/03/25 17:36 03/03/25 17:36 Temperature 98.6 F Temperature Source Pulse Rate 90 Respiratory Rate Blood Pressure 134/91 H BP Systolic 134 BP Diastolic 91 Pulse Ox 03/03/25 18:00 03/03/25 18:00 03/03/25 18:15 Temperature Temperature Source Pulse Rate 96 Respiratory Rate Blood Pressure 135/83 H 137/87 H BP Systolic 135 137 BP Diastolic 83 87 Pulse Ox 03/03/25 18:15 03/03/25 18:30 03/03/25 18:30 Temperature Temperature Source Pulse Rate 93 100 Respiratory Rate Blood Pressure 141/87 H BP Systolic 141 BP Diastolic 87 Pulse Ox Weight Weight: 208 lb 5.389 oz Body Mass Index (BMI) 32.6 Physical Exam Const alert, oriented x3, no apparent distress and healthy appearing General Appearance: cooperative; Negative for anxious HEENT normocephalic Face and Sinus: normal facial exam Eyes EOMs intact bilaterally and no scleral icterus General Eye: normal appearance of both eyes Neck full ROM and supple Lymph Lymphatic: no lymphadenopathy noted Chest Chest: abnormal inspection of the chest Resp normal respiratory effort Effort and Inspection: able to speak in complete sentences Cardio regular rate GI soft to palpation and non-tender Inspection: gravid Palpation: soft; Negative for tender external exam normal Manual OB Exam: other /-2 Back/Spine no CVA tenderness Extremity normal to inspection, full ROM and no clubbing, cyanosis or edema General Extremity: Negative for calf tenderness or edema Skin Lesions: no lesions Rashes: no rashes Psych mental status grossly normal Labs Labs Labs: Blood Type O POSITIVE Antibody Screen NEGATIVE Hct 35.0 % (37-47) L Hgb 11.6 g/dL (12.0-15.0) L Syphilis Total Ab Nonreactive (Nonreactive) Rubella IgG Antibody Reactive (Nonreactive) Hep Bs Antigen Non-Reactive (Nonreactive) Hepatitis C Antibody Non-Reactive (Nonreactive) Chlamydia DNA (CHITO) Negative (Negative) N.gonorrhoeae DNA (CHITO) Negative (Negative) HIV 1&2 Antibody Nonreactive (Nonreactive) Glucose 1 Hr 50 gm 67 mg/dL (70-140) L Gest Glucose Tolerance MG/DL Rhogam given: No Assessment & Plan (1) Headache in : (2) Gestational hypertension: COMMENT: admit IOL if doesn't make cervical change (3) Supervision of high-risk : QUALIFIERS: Trimester: third trimester Qualified Code(s): O09.93 - Supervision of high risk , unspecified, third trimester COMMENT: PRR , DOMENICO 03/13/25, PC Chelita, Antonio (4) Hx of pre-eclampsia in prior , currently : COMMENT: baseline labs ordered and recommend 81 mg asa at 14 weeks. (5) Depression: QUALIFIERS: Depression Type: unspecified Qualified Code(s): F32.A - Depression, unspecified COMMENT: sertraline increased to 100mg recommend counseling. stable PLAN: Plan Patient presents IOL, plan management for with pitocin/AROM. Pain management: plans epidural. GBS negative. Management of any complications: see above uterus is currently showing irritability. Will order a 500 cc bolus and then when calms down will start pitocin. I have reviewed the [facility] and made any clinically relevant updates.
[2025-03-03 18:46] LABS: AST(SGOT) 21 U/L (<=31); Alanine Aminotransfer ALT/SGPT 17 U/L (<=34); Creatinine, Serum 0.56 mg/dL (0.70-1.20); EST Glomerular Filtration Rate 129 (>60); Estimated Creatinine Clearance 179.67 ml/min (50-250); Uric Acid 4.2 mg/dL (2.6-6.0)
[2025-03-03] MEDS: Lactated Ringers 1,000 ML 50 ML IV (19:36)
[2025-03-03] MEDS: LACTATED RINGERS 500 ML 999 ML IV (19:36)
[2025-03-03 20:10] LABS: Syphilis Antibodies Nonreactive (Nonreactive)
[2025-03-03] MEDS: Acetaminophen 500 MG Tablet PO (20:17)
[2025-03-03] MEDS: Oxytocin 15 Units/NS 250ml 15 UNITS/250 ML IV.SOLN 2 UNITS IV (20:24)
[2025-03-04] VITALS (72 sets, daily range): BP systolic 106–143; BP diastolic 55–84; PULSE 61–91; RESP 14–18; TEMP 36.3–37.3; O2SAT 98–100
--- OUTSIDE RECORDS SUMMARY | 2025-03-04 00:28 | XMS RPT_ITS | CCD ---
Author Organization [facility] Care Team Providers Care Production Line Worker Name Role Phone RHONDA WAN Unavailable Unavailable SWETHA MCKINNEY Unavailable Unavailable RHONDA WAN Unavailable Unavailable Care Physician, No Primary Primary Care Provider Unavailable Care Physician, No Primary Referring Provider Un available Dr. Cristina Lockett Attending Provider [phone] Dr. Hina Elliott Attending Provider [phone] Naresh MEDICAL PRACTICE ASSISTANT, MEDICAL PRACTICE ASSISTANT-C Thelma Attending Provider [phone] Care Physician, No Primary Primary Care Provider Unavailable Care Physician, No Primary Referring Provider Un available Dr. Hina Elliott Attending Provider [phone] Dr. Cristina Lockett Attending Provider [phone] Care Physician, No Primary Primary Care Provider Unavailable Care Physician, No Primary Referring Provider Un available Naresh PICKETT, MEDICAL PRACTICE ASSISTANT-C Thelma Attending Provider [phone] Dr. Hina Elliott Admit Provider [phone] Dr. Hina Elliott Other Provider [phone] FAUSTO HUERTAS Attending Unavailable HINA ELLIOTT Primary Care Unavailabl e ZENA HERNANDEZ Referring Unavailable Care Physician, No Primary Primary Care Provider Unavailable Care Physician, No Primary Referring Provider Un available Zena Hernandez CNM Attending Provider [phone] Dr. Hina Elliott MD Attending Provider [phone] Zena Hernandez CNM Referring Provider [phone]) Care Physician, No Primary Primary Care Provider Unavailable Care Physician, No Primary Referring Provider Un available Zena Hernandez CNM Attending Provider [phone] Naresh PICKETT-CThelma Attending Provider [phone] Dr. Cristina Lockett DO Attending Provider Care Physician, No Primary Primary Care Unava ilable Zena Hernandez Referring Unavailable Zena Hernandez Attending Unavailable Care Physician, No Primary Primary Care Unava ilable Zena Hernandez Referring Unavailable Zena Hernandez Attending Unavailable Care Physician, No Primary Primary Care Unava ilable Care Physician, No Primary Referring Zena Abarca Attending Unavailable Care Physician, No Primary Referring Unava ilable Care Physician, No Primary Primary Care Unava ilable Zena Hernandez Attending Unavailable Care Physician, No Primary Referring Unava ilable Care Physician, No Primary Primary Care Unava ilable Cristina Lockett Att[facility] Care Phys[facility], No Primary Referring Unava ilable Care Physician, No Primary Primary Care Unava ilable Zena Hernandez Attending Unavailable Care Physician, No Primary Referring Unava ilable Care Physician, No Primary Primary Care Unava ilZena Bergeron Attending Unavailable Care Physician, No Primary Primary Care Unava ilable Care Physician, No Primary Referring Unava ilable Hina Elliott Attending Unavailable Care Physician, No Primary Primary Care Unava ilable Care Physician, No Primary Referring Unava ilable [place] MEDICAL PRACTICE ASSISTANT, Thelma Attending Unavailable Care Physician, No Primary Primary Care Unava ilable Care Physician, No Primary Referring Unava ilZena Bergeron Attending Unavailable Care Physician, No Primary Primary Care Unava ilable Care Physician, No Primary Referring Unava Zena Coronado Attending Unavailable Care Physician, No Primary Primary Care Unava ilable Care Physician, No Primary Referring Unava ilable Naresh MEDICAL PRACTICE ASSISTANT, Thelma Attending Unavailable Care Physician, No Primary Primary Care Unava ilable Care Physician, No Primary Referring Unava annable Zena Hernandez Attending Unavailable Care Physician, No Primary Primary Care Unava ilable Care Physician, No Primary Referring Unava ilable Hina Elliott Attending Unavailable Care Physician, No Primary Primary Care Unava ilZena Bergeron Attending Unavailable Zena Hernandez Referring Unavailable Care Physician, No Primary Primary Care [place] ilZena Bergeron Referring Unavailable Zena Hernandez Attending Unavailable Care Physician, No Primary Primary Care Unava ilable Hina Elliott Referring Unavailable Hina Elliott Attending Unavailable Medications Current Medications Medication Drug Class(es) Dates Sig (Normalized) Sig (Original) Pnv 489-Nmqo-Atjapo-Dh a (4 sources) Start: 10-05-2021 take 1 capsule by mouth once daily Pnv 368-Kqnh-Kfyhmv-D motta Active 1 CAP PO DAILY October 05, 2021 1:00am Pnv No.382-Rj-Ly7-Dha- Epa-Fish 400 mcg-35 mg- 25 mg-5 mg tablet,chewable (7 sources) Start: 08-01-2024 Pnv No.226-Wd-Yb4-Dha -Epa-Fish 400 mcg-35 mg- 25 mg-5 mg tablet,chewable Active {tbl} PO August 01, 2024 1:00am sertraline 50 mg oral tablet (7 sources) Serotonin Reuptake Inhibitor Start: 08-01-2024 take 1 tablet by mouth once daily Sertraline 50 mg tablet Active 50 mg PO daily August 01, 2024 1:00am Completed/Discontinued Medications Medication Drug Class(es) Dates Sig (Normalized) Sig (Original) ethinyl estradiol 0.03 mg / norethindrone acetate 1.5 mg oral tablet (14 sources) Estrogen Start: 10-11-2022 End: 08-01-2024 take 1 tablet by mouth once daily Norethindrone Ac-Eth Estradiol (Hernando 1.5/30 (21)) 1.5-30 mg-mcg tablet Discontinued 0 .ROUTE .COMPLEX October 15, 2023 11:11am August 01, 2024 9:21am TAKE ONE TABLET BY MOUTH EVERY DAY Iron (7 sources) Start: 10-05-2021 End: 06-02-2022 take 1 capsule by mouth once daily Pnv 102-Iegn-Ltpise-Dha 90 mg iron- 1 mg-200 mg capsule Discontinued 1 NMA PO DAILY October 05, 2021 1:00am June 02, 2022 9:43am Problems Active Problems Problem Classification Problem Date Documented Date Episodic/Chronic Contraceptive and procreative management (7 sources) Patient encounter status; Translations: [Encounter for contraceptive management, unspecified] 08-01-2024 Episodic Diabetes or abnormal glucose tolerance complicating ; childbirth; or the puerperium (19 sources) Abnormal glucose level; Translations: [Abnormal glucose complicating ] Episodic Comment on above: nl 3 hr gtt Esophageal disorders (7 sources) Chest pain; Translations: [Gastro-esophageal reflux disease without esophagitis] 06-19-2023 Chronic Hypertension complicating ; childbirth and the puerperium (18 sources) -induced hypertension; Translations: [Gestational [-induced] hypertension without significant proteinuria, unspecified trimester] Episodic Comment on above: admit IOL if doesn't make cervical change magnesium sulfate to be dced at 24 hours, monitor Immunizations and screening for infectious disease (1 source) Encounter for immunization; Translations: [Encounter for immunization] Onset: 01-14-2025 Episodic Mood disorders (20 sources) Depressive disorder; Translations: [Depression] 08-04-2024 Chronic Comment on above: sertraline increased to 100mg recommend counseling. sertraline increased to 100mg recommend counseling. stable Mood disorders (1 source) Mood disorders; Translations: [Depression, unspecified] Onset: 02-16-2025 Other complications of (20 sources) High risk ; Translations: [Supervision of high risk , unspecified, unspecified trimester] 10-02-2024 Episodic Comment on above: PRR , DOMENICO , PC Radha, Antonio Other complications of (20 sources) History of pre-eclampsia; Translations: [Supervision of with other poor reproductive or obstetric history, unspecified trimester] 08-04-2024 Episodic Comment on above: baseline labs ordere d and recommend 81 mg asa at 14 weeks. Other complications of (1 source) Supervision of high risk , unspecified, third trimester; Translations: [Supervision of high risk , unspecified, third trimester] Onset: 02-19-2025 Episodic Other complications of (1 source) Supervision of with other poor reproductive or obstetric history, unspecified trimester; Translations: [Supervision of with other poor reproductive or obstetric history, unspecified trimester] Onset: 02-16-2025 Episodic Other complications of (1 source) Supervision of high risk , unspecified, unspecified trimester; Translations: [Supervision of high risk , unspecified, unspecified trimester] Onset: 01-02-2025 Episodic Other and delivery including normal (20 sources) Normal ; Translations: [Encounter for supervision of normal first , unspecified trimester] Onset: 12-11-2024 Episodic Comment on above: SM 40 IOL severe pree girl radha PRR DOMENICO 05/21/22 girl Radha spouse: antonio declined afp NIPT & Carrier testing. nl anatomy GBS neg. nipt tyler r ntd screening declined. anatomy nl declined afp NIPT & Carrier testing. nl anatomy , gbs neg Residual codes; unclassified (11 sources) History of vaccination; Translations: [Personal history of other drug therapy] 03-27-2022 Episodic Comment on above: 02/27/22 Residual codes; unclassified (6 sources) Personal history of other drug therapy; Translations: [Other postprocedural status] Episodic Residual codes; unclassified (20 sources) Family history of breast cancer; Translations: [Family history of malignant neoplasm of breast] 08-01-2024 Episodic Comment on above: Paternal Grandmother Breast Cancer Residual codes; unclassified (1 source) Family history of malignant neoplasm of breast; Translations: [Family history of malignant neoplasm of breast] Onset: 02-16-2025 Episodic Residual codes; unclassified (1 source) 36 weeks gestation of ; Translations: [36 weeks gestation of ] Onset: 02-16-2025 Episodic Residual codes; unclassified (1 source) 35 weeks gestation of ; Translations: [35 weeks gestation of ] Onset: 02-12-2025 Episodic Residual codes; unclassified (1 source) 33 weeks gestation of ; Translations: [33 weeks gestation of ] Onset: 01-26-2025 Episodic Residual codes; unclassified (1 source) 29 weeks gestation of ; Translations: [29 weeks gestation of ] Onset: 01-02-2025 Episodic Residual codes; unclassified (1 source) 25 weeks gestation of ; Translations: [25 weeks gestation of ] Onset: 12-05-2024 Episodic Past or Other Problems Problem Classification Problem Date Documented Da te Episodic/Chronic Residual codes; unclassified (1 source) 21 weeks gestation of ; Translations: [21 weeks gestation of ] Onset: 11-05-2024 Episodic Residual codes; unclassified (1 source) 16 weeks gestation of ; Translations: [16 weeks gestation of ] Onset: 10-02-2024 Episodic Residual codes; unclassified (1 source) 12 weeks gestation of ; Translations: [12 weeks gestation of ] Onset: 09-01-2024 Episodic Residual codes; unclassified (1 source) 8 weeks gestation of ; Translations: [8 weeks gestation of ] Onset: 08-04-2024 Episodic Results Test Name Value Interpretation Reference Range Facility Blender Snuff Office Visit Reporton 02-24-2025 Blender Snuff Office Visit Report [facility] [address] [place], [address] [place] [address] OFFICE VISIT Date of Service: 02/24/25 MR#: [id number] Acct: [id number] Name: SPRING BURR Rep #: [id number] 8 : 2000 Provider: ANNE carter Age/Sex: 24/F Location: [facility] [place] Status: Signed Intake Vital Signs 02/11/25 09:32 02/11/25 09:50 02/16/25 13:46 02/24/25 08:10 Height 5 ft 8 in 5 ft 8 in 5 ft 8 in 5 ft 8 in Weight: 203 lb 4 oz BMI 30.9 BP 108/70 Intake Visit Reasons: 37wk ob Chief Complaint: 37 Week OB Nitroglycerin Neutralizer Required: No Is patient in pain?: No Allergies No Known Allergies Allergy (Verified 02/24/25 08:11) Medications ???Medication ???Instructions ???Recorded ???Confirmed ???Type PNV 153-FA 400 mcg-om3 35 mg-dha tab PO 08/01/24 02/24/25 History 25 mg-epa 5 mg-fish oil chew tablet sertraline 50 mg tablet 50 mg PO QDAY 08/01/24 02/24/25 Hi story Last Menstrual Period: 06/06/24 Zika: Zika virus screening: Negative : No PFSH PFSH Medical History Pre-eclampsia Family History Grandmother Cancer Mets to brain, lung, bone Breast cancer Paternal Social History adopted: No household members: spouse and children housing: house number of children: 1 current occupational status: employed current occupation: [employer] pets and animals: Yes (Avoid litterbox) pets and animals: cat(s) history of recent travel: No sexually active: Yes Smoking Status: Never smoker alcohol intake: current alcohol intake frequency: holidays/special occasions only details: not while substance use type: does not use well-balanced diet: daily or most days caffeine: No eating out: rarely or never during the past year weight has: decreased > 10 lbs what type of physical activity do you participate in: none daniel/denominational: None seatbelt use: always do you feel safe at home: Yes 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 Date Name GA/Weeks Outcome Route Bth Weight Infant Gen Labor Lgth Anesthesia Del Locatn Provider FOB 05/27/22 Radha 40 live - full term Female epidural [facility] Antonio Delivery Date: 05/27/22 Last Updated by: Petty Villar SM 40w IOL Pre E HPI 37wk ob Details: SPRING BURR is a 24 year old who presents for routine OB visit. OB Visit DOMENICO Calculator Estimated Delivery Date Method Current WG Current Estimate 03/16/25 Ultrasound #1 37w 1d Other Estimates 03/13/25 LMP (Certain) 37w 4d Expected Delivery Route/Plan Labor Preferences- CB/BF classes:no labor support person: Antonio labor intervention preferences: [] pain management options preferred: epidural if requested cut cord/dad catch: yes : yes PP control planned: discussed discussed possible routes of delivery and associated risks: [] special requests: [] Specific Issue/Plans Covid status: [] Flu vaccine: declined Tdap vaccine: given Rhogam: na LARC form signed: yes Problem list reviewed and updated with the most current plan of care details and appropriate orders placed. Relevant counseling for the gestational age provided. Continue routine care and follow up unless otherwise noted in visit notes/problem list details Initial Weight: 163 lb Date -???-???-???-???-?? ?-???-???-???-???-? ??-???-???- EGA Weight BP Urine Prot -???-???-???-???-?? ?-???-???-???-???-? ??-???-???- Glucose FHR FuHt Pres Dilation -???-???-???-???-?? ?-???-???-???-???-? ??-???-???- Effaced St Visit Note 08/04/24 -???-???-???-???-?? ?-???-???-???-???-? ??-???-???- 8w 0d 162 lb 2 oz (-14 oz) 123/80 -???-???-???-???-?? ?-???-???-???-???-? ??-???-???- 165 -???-???-???-???-?? ?-???-???-???-???-? ??-???-???- SM- CRL cons with LMP measuring 8w3d SM- CRL cons with LMP measuring 8w 0d 09/01/24 -???-???-???-???-?? ?-???-???-???-???-? ??-???-???- 12w 0d 163 lb (+0 oz) 106/67 Negative -???-???-???-???-?? ?-???-???-???-???-? ??-???-???- Negative 157 -???-???-???-???-?? ?-???-???-???-???-? ??-???-???- KW- vb/cramp ing. anatomy US ordered 10/02/24 -???-???-???-???-?? ?-???-???-???-???-? ??-???-???- 16w 3d 164 lb 2 oz (+1 lb 2 oz) 110/72 Negative -???-???-???-???-?? ?-???-???-???-???-? ??-???-???- Negative 150 -???-???-???-???-?? ?-???-???-???-???-? ??-???-???- SM- no vbc r amping 11/05/24 -???-???-???-???-?? ?-???-???-???-???-? (more content not included)... Normal [facility] Rule out Beta Strep (Grp. B) on 02-18-2025 JASON Group B Beta Streptococcus is not isolated. Normal [facility] Comment on above: Performed By: #### M 100.3400 #### [facility] [address] [place] [address]. [place], [address] Laboratory - Chemistry and C hemistry - challengeOrdered By: Zena Hernandez on 02-16-2025 Glucose Ql (U) Negative [facility] Laboratory - UrinalysisOrder ed By: Zena Hernandez on 02-16-2025 Protein Ql (U) Negative [facility] Blender Snuff Office Visit Reporton 02-16-2025 Blender Snuff Office Visit Report [facility] [address], [address] [place] [address] OFFICE VISIT Date of Service: 02/16/25 MR#: [id number] Acct: [id number] Name: SPRING BURR Rep #: [id number] 7 : 2000 Provider: FAWN Ye ams Age/Sex: 24/F Location: [facility] [place] Status: Signed Intake Vital Signs 02/11/25 09:32 02/12/25 11:13 02/16/25 13:46 Height 5 ft 8 in 5 ft 8 in 5 ft 8 in Weight: 202 lb 4 oz BMI 30.7 BP 118/80 Intake Visit Reasons: 36wk ob Chief Complaint: 36wk OB Nitroglycerin Neutralizer Required: No Is patient in pain?: No Allergies No Known Allergies Allergy (Verified 02/16/25 13:46) Medications ???Medication ???Instructions ???Recorded ???Confirmed ???Type PNV 153-FA 400 mcg-om3 35 mg-dha tab PO 08/01/24 02/16/25 History 25 mg-epa 5 mg-fish oil chew tablet sertraline 50 mg tablet 50 mg PO QDAY 08/01/24 02/16/25 Hi story Last Menstrual Period: 06/06/24 : No Have you fallen in the past year?: No PFSH PFSH Medical History Pre-eclampsia Family History Grandmother Cancer Mets to brain, lung, bone Breast cancer Paternal Social History adopted: No household members: spouse and children housing: house number of children: 1 current occupational status: employed current occupation: [employer] pets and animals: Yes (Avoid litterbox) pets and animals: cat(s) history of recent travel: No sexually active: Yes Smoking Status: Never smoker alcohol intake: current alcohol intake frequency: holidays/special occasions only details: not while substance use type: does not use well-balanced diet: daily or most days caffeine: No eating out: rarely or never during the past year weight has: decreased > 10 lbs what type of physical activity do you participate in: none daniel/denominational: None seatbelt use: always do you feel safe at home: Yes 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 Date Name GA/Weeks Outcome Route Bth Weight Gen Labor Lgth Anesthesia Del Locatn Provider FOB 05/27/22 Radha 40 live - full term Female epidural [facility] Antonio Delivery Date: 05/27/22 Last Updated by: Petty WALKER 40w IOL Pre E HPI 36wk ob Details: SPRING BURR is a 24 year old who presents for routine OB visit. OB Visit DOMENICO Calculator Estimated Delivery Date Method Current WG Current Estimate 03/16/25 Ultrasound #1 36w 0d Other Estimates 03/13/25 LMP (Certain) 36w 3d Expected Delivery Route/Plan Labor Preferences- CB/BF classes:no labor support person: Antonio labor intervention preferences: [] pain management options preferred: epidural if requested cut cord/dad catch: yes : yes PP control planned: discussed discussed possible routes of delivery and associated risks: [] special requests: [] Specific Issue/Plans Covid status: [] Flu vaccine: declined Tdap vaccine: given Rhogam: na LARC form signed: yes Problem list reviewed and updated with the most current plan of care details and appropriate orders placed. Relevant counseling for the gestational age provided. Continue routine care and follow up unless otherwise noted in visit notes/problem list details Initial Weight: 163 lb Date -???-???-???-???-?? ?-???-???-???-???-? ??-???-???- EGA Weight BP Urine Prot -???-???-???-???-?? ?-???-???-???-???-? ??-???-???- Glucose FHR FuHt Pres Dilation -???-???-???-???-?? ?-???-???-???-???-? ??-???-???- Effaced St Visit Note 08/04/24 -???-???-???-???-?? ?-???-???-???-???-? ??-???-???- 8w 0d 162 lb 2 oz (-14 oz) 123/80 -???-???-???-???-?? ?-???-???-???-???-? ??-???-???- 165 -???-???-???-???-?? ?-???-???-???-???-? ??-???-???- SM- CRL cons with LMP measuring 8w3d SM- CRL cons with LMP measuring 8w 0d 09/01/24 -???-???-???-???-?? ?-???-???-???-???-? ??-???-???- 12w 0d 163 lb (+0 oz) 106/67 Negative -???-???-???-???-?? ?-???-???-???-???-? ??-???-???- Negative 157 -???-???-???-???-?? ?-???-???-???-???-? ??-???-???- KW- vb/cramp ing. anatomy US ordered 10/02/24 -???-???-???-???-?? ?-???-???-???-???-? ??-???-???- 16w 3d 164 lb 2 oz (+1 lb 2 oz) 110/72 Negative -???-???-???-???-?? ?-???-???-???-???-? ??-???-???- Negative 150 -???-???-???-???-?? ?-???-???-???-???-? ??-???-???- SM- no vbc r amping 11/05/24 -???-???-???-???-?? ?-???-???-???-???-? ??-???-???- 21w 2d 174 lb 2 oz (+11 lb 2 oz) (more content not included)... Normal [facility] Screening beta-hemolytic Str eptococcus cultureOrdered By: Zena Hernandez on 02-16-2025 Beta-hemolytic Streptococcus culture Group B Beta Streptococcus is not isolated. [facility] Genital Culture Comprehensiv sarah 02-14-2025 VAC Reason for Exam: Vaginal Discharge Normal genital prakash isolated Normal [facility] Comment on above: Performed By: #### M 100.3200, M100.1999 ####[facility] [address] [place], [address] (ROM) Rupture Of Membraneson 02-12-2025 ROM Negative Normal Negative [facility] Comment on above: Result Comment: Amni otic fluid not present indicates No Rupture of Membranes at time of specimen collection. Performed By: #### L 205.1000 ####[facility] [address] [place], [address] Genital cultureOrdered By: Modesta Hernandez on 02-12-2025 Source specific culture Normal genital prakash isolated [facility] Gram Stainon 02-12-2025 GS Reason for Exam: Vaginal Discharge Gram Stain 1+ Gram positive rods No Gram negative diplococci No White Blood Cells Score = 3 Interpretation: 0-3 Normal, 4-6 Intermediate, 7-10 Positive BV Normal [facility] Comment on above: Performed By: #### M 100.3200, M100.1999 ####[facility] [address] [place], [place], [address] Gram stainOrdered By: Zena Hernandez on 02-12-2025 Microscopic observation Gram stain Nom (Unsp spec) [facility] Laboratory - Chemistry and C hemistry - challengeOrdered By: Zena Hernandez on 02-12-2025 Glucose Ql (U) Negative [facility] Laboratory - UrinalysisOrder ed By: Zena Hernandez on 02-12-2025 Protein Ql (U) Negative [facility] Blender Snuff Office Visit Reporton 02-12-2025 Blender Snuff Office Visit Report [facility] [address], [address] [place] [address] OFFICE VISIT Date of Service: 02/12/25 MR#: [id number] Acct: [id number] Name: SPRING BURR Rep #: [id number] 3 : 2000 Provider: FAWN Ye ams Age/Sex: 24/F Location: [facility] [place] Status: Signed Intake Vital Signs 02/11/25 09:50 02/12/25 11:13 Height 5 ft 8 in 5 ft 8 in Weight: 200 lb 8 oz BMI 30.4 BP 119/80 Intake Visit Reasons: ROM check Chief Complaint: ROM Check Nitroglycerin Neutralizer Required: No Is patient in pain?: No Allergies No Known Allergies Allergy (Verified 02/12/25 11:11) Medications ???Medication ???Instructions ???Recorded ???Confirmed ???Type PNV 153-FA 400 mcg-om3 35 mg-dha tab PO 08/01/24 02/12/25 History 25 mg-epa 5 mg-fish oil chew tablet sertraline 50 mg tablet 50 mg PO QDAY 08/01/24 02/12/25 Hi story Last Menstrual Period: 06/06/24 : No Have you fallen in the past year?: No PFSH PFSH Medical History Pre-eclampsia Family History Grandmother Cancer Mets to brain, lung, bone Breast cancer Paternal Social History adopted: No household members: spouse and children housing: house number of children: 1 current occupational status: employed current occupation: [employer] pets and animals: Yes (Avoid litterbox) pets and animals: cat(s) history of recent travel: No sexually active: Yes Smoking Status: Never smoker alcohol intake: current alcohol intake frequency: holidays/special occasions only details: not while substance use type: does not use well-balanced diet: daily or most days caffeine: No eating out: rarely or never during the past year weight has: decreased > 10 lbs what type of physical activity do you participate in: none daniel/denominational: None seatbelt use: always do you feel safe at home: Yes additional social history: Antonio 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 Date Name GA/Weeks Outcome Route Bth Weight Gen Labor Lgth Anesthesia Del Locatn Provider FOB 05/27/22 Radha 40 live - full term Female epidural [facility] Antonio Delivery Date: 05/27/22 Last Updated by: Petty Villar 40w IOL Pre E HPI ROM check Details: SPRING BURR is a 24 year old who presents for routine OB visit. OB Visit DOMENICO Calculator Estimated Delivery Date Method Current WG Current Estimate 03/16/25 Ultrasound #1 35w 3d Other Estimates 03/13/25 LMP (Certain) 35w 6d Expected Delivery Route/Plan Labor Preferences- CB/BF classes:no labor support person: Antonio labor intervention preferences: [] pain management options preferred: epidural if requested cut cord/dad catch: yes : yes PP control planned: discussed discussed possible routes of delivery and associated risks: [] special requests: [] Specific Issue/Plans Covid status: [] Flu vaccine: declined Tdap vaccine: given Rhogam: na LARC form signed: yes Problem list reviewed and updated with the most current plan of care details and appropriate orders placed. Relevant counseling for the gestational age provided. Continue routine care and follow up unless otherwise noted in visit notes/problem list details Initial Weight: 163 lb Date -???-???-???-???-?? ?-???-???-???-???-? ??-???-???- EGA Weight BP Urine Prot -???-???-???-???-?? ?-???-???-???-???-? ??-???-???- Glucose FHR FuHt Pres Dilation -???-???-???-???-?? ?-???-???-???-???-? ??-???-???- Effaced St Visit Note 08/04/24 -???-???-???-???-?? ?-???-???-???-???-? ??-???-???- 8w 0d 162 lb 2 oz (-14 oz) 123/80 -???-???-???-???-?? ?-???-???-???-???-? ??-???-???- 165 -???-???-???-???-?? ?-???-???-???-???-? ??-???-???- SM- CRL cons with LMP measuring 8w3d SM- CRL cons with LMP measuring 8w 0d 09/01/24 -???-???-???-???-?? ?-???-???-???-???-? ??-???-???- 12w 0d 163 lb (+0 oz) 106/67 Negative -???-???-???-???-?? ?-???-???-???-???-? ??-???-???- Negative 157 -???-???-???-???-?? ?-???-???-???-???-? ??-???-???- KW- vb/cramp ing. anatomy US ordered 10/02/24 -???-???-???-???-?? ?-???-???-???-???-? ??-???-???- 16w 3d 164 lb 2 oz (+1 lb 2 oz) 110/72 Negative -???-???-???-???-?? ?-???-???-???-???-? ??-???-???- Negative 150 -???-???-???-???-?? ?-???-???-???-???-? ??-???-???- SM- no vbc r amping 11/05/24 -???-???-???-???-?? ?-???-???-???-???-? ??-???-???- 21w 2d 174 lb 2 oz (+11 lb 2 oz) 104/65 Negative -? (more content not included)... Normal [facility] - Chemistry and C hemistry - challengeOrdered By: Cristina Delarosa on 02-11-2025 Glucose Ql (U) Negative [facility] - UrinalysisOrder ed By: Cristina Delarosa on 02-11-2025 Protein Ql (U) Negative [facility] Blender Snuff Office Visit Reporton 02-11-2025 Blender Snuff Office Visit Report [facility]'s [address], [address] [place] [address] OFFICE VISIT Date of Service: 02/11/25 MR#: [id number] Acct: [id number] Name: SPRING BURR Rep #: [id number] 1 : 2000 Provider: Dr. Cristina Grigsby DO Age/Sex: 24/F Location: [facility] [place] Status: Signed Intake Vital Signs 09/01/24 14:10 01/26/25 09:26 02/11/25 09:31 02/11/25 09:32 Height 5 ft 8 in 5 ft 8 in 5 ft 8 in 5 ft 8 in Weight: 201 lb 6 oz BMI 30.6 BP 113/78 Intake Visit Reasons: 34 WK OB Nitroglycerin Neutralizer Required: No Is patient in pain?: No Allergies No Known Allergies Allergy (Verified 02/11/25 09:31) Medications ???Medication ???Instructions ???Recorded ???Confirmed ???Type PNV 153-FA 400 mcg-om3 35 mg-dha tab PO 08/01/24 02/11/25 History 25 mg-epa 5 mg-fish oil chew tablet sertraline 50 mg tablet 50 mg PO QDAY 08/01/24 02/11/25 Hi story Last Menstrual Period: 06/06/24 Zika: Zika virus screening: Negative : No PFSH PFSH Medical History Pre-eclampsia Family History Grandmother Cancer Mets to brain, lung, bone Breast cancer Paternal Social History adopted: No household members: spouse and children housing: house number of children: 1 current occupational status: employed current occupation: [employer] pets and animals: Yes (Avoid litterbox) pets and animals: cat(s) history of recent travel: No sexually active: Yes Smoking Status: Never smoker alcohol intake: current alcohol intake frequency: holidays/special occasions only details: not while substance use type: does not use well-balanced diet: daily or most days caffeine: No eating out: rarely or never during the past year weight has: decreased > 10 lbs what type of physical activity do you participate in: none daniel/denominational: None seatbelt use: always do you feel safe at home: Yes 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 Date Name GA/Weeks Outcome Route Bth Weight Gen Labor Lgth Anesthesia Del Locatn Provider FOB 05/27/22 Radha 40 live - full term Female epidural [facility] Alvarez Delivery Date: 05/27/22 Last Updated by: Petty WALKER 40w IOL Pre E HPI 34 WK OB Details: SPRING BURR is a 24 year old who presents for routine OB visit. OB Visit DOMENICO Calculator Estimated Delivery Date Method Current WG Current Estimate 03/16/25 Ultrasound #1 35w 2d Other Estimates 03/13/25 LMP (Certain) 35w 5d Expected Delivery Route/Plan Labor Preferences- CB/BF classes:no labor support person: Antonio labor intervention preferences: [] pain management options preferred: epidural if requested cut cord/dad catch: yes : yes PP control planned: discussed discussed possible routes of delivery and associated risks: [] special requests: [] Specific Issue/Plans Covid status: [] Flu vaccine: declined Tdap vaccine: given Rhogam: na LARC form signed: yes Problem list reviewed and updated with the most current plan of care details and appropriate orders placed. Relevant counseling for the gestational age provided. Continue routine care and follow up unless otherwise noted in visit notes/problem list details Initial Weight: 163 lb Date -???-???-???-???-?? ?-???-???-???-???-? ??-???-???- EGA Weight BP Urine Prot -???-???-???-???-?? ?-???-???-???-???-? ??-???-???- Glucose FHR FuHt Pres Dilation -???-???-???-???-?? ?-???-???-???-???-? ??-???-???- Effaced St Visit Note 08/04/24 -???-???-???-???-?? ?-???-???-???-???-? ??-???-???- 8w 0d 162 lb 2 oz (-14 oz) 123/80 -???-???-???-???-?? ?-???-???-???-???-? ??-???-???- 165 -???-???-???-???-?? ?-???-???-???-???-? ??-???-???- SM- CRL cons with LMP measuring 8w3d SM- CRL cons with LMP measuring 8w 0d 09/01/24 -???-???-???-???-?? ?-???-???-???-???-? ??-???-???- 12w 0d 163 lb (+0 oz) 106/67 Negative -???-???-???-???-?? ?-???-???-???-???-? ??-???-???- Negative 157 -???-???-???-???-?? ?-???-???-???-???-? ??-???-???- KW- vb/cramp ing. anatomy US ordered 10/02/24 -???-???-???-???-?? ?-???-???-???-???-? ??-???-???- 16w 3d 164 lb 2 oz (+1 lb 2 oz) 110/72 Negative -???-???-???-???-?? ?-???-???-???-???-? ??-???-???- Negative 150 -???-???-???-???-?? ?-???-???-???-???-? ??-???-???- SM- no vbc r amping 11/05/24 -???-???-???-???-?? ?-???-???-???-???-? ??-???-???- 21w 2d 1 (more content not included)... Normal [facility] - Chemistry and C hemistry - challengeOrdered By: Zena Hernandez on 01-26-2025 Glucose Ql (U) Negative [facility] - UrinalysisOrder ed By: Zena Hernandez on 01-26-2025 Protein Ql (U) Negative [facility] Blender Snuff Office Visit Reporton 01-26-2025 Blender Snuff Office Visit Report [facility]'s [address], [address] [place] [address] OFFICE VISIT Date of Service: 01/26/25 MR#: [id number] Acct: [id number] Name: SPRING BURR Rep #: [id number] : 2000 Provider: FAWN Ye ams Age/Sex: 24/F Location: [facility] [place] Status: Signed Intake Vital Signs 12/16/24 14:10 01/14/25 09:57 01/26/25 09:24 01/26/25 09:26 Height 5 ft 8 in 5 ft 8 in 5 ft 8 in 5 ft 8 in Weight: 196 lb BMI 29.7 BP 111/75 Intake Visit Reasons: 32 WK OB Chief Complaint: 32wk OB Nitroglycerin Neutralizer Required: No Is patient in pain?: No Allergies No Known Allergies Allergy (Verified 01/26/25 09:21) Medications ???Medication ???Instructions ???Recorded ???Confirmed ???Type PNV 153-FA 400 mcg-om3 35 mg-dha tab PO 08/01/24 01/26/25 History 25 mg-epa 5 mg-fish oil chew tablet sertraline 50 mg tablet 50 mg PO QDAY 08/01/24 01/26/25 Hi story Last Menstrual Period: 06/06/24 : No PFSH PFSH Medical History Pre-eclampsia Family History Grandmother Cancer Mets to brain, lung, bone Breast cancer Paternal Social History adopted: No household members: spouse and children housing: house number of children: 1 current occupational status: employed current occupation: [employer] pets and animals: Yes (Avoid litterbox) pets and animals: cat(s) history of recent travel: No sexually active: Yes Smoking Status: Never smoker alcohol intake: current alcohol intake frequency: holidays/special occasions only details: not while substance use type: does not use well-balanced diet: daily or most days caffeine: No eating out: rarely or never during the past year weight has: decreased > 10 lbs what type of physical activity do you participate in: none daniel/denominational: None seatbelt use: always do you feel safe at home: Yes additional social history: Antonio Covarrubiasck- 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 Date Name GA/Weeks Outcome Route Bth Weight Gen Labor Lgth Anesthesia Del Locatn Provider FOB 05/27/22 Radha 40 live - full term Female epidural [facility] Alvarez Delivery Date: 05/27/22 Last Updated by: Petty Villar SM 40w IOL Pre E HPI 32 WK OB Details: SPRING BURR is a 24 year old who presents for routine OB visit. OB Visit DOMENICO Calculator Estimated Delivery Date Method Current WG Current Estimate 03/16/25 Ultrasound #1 33w 0d Other Estimates 03/13/25 LMP (Certain) 33w 3d Expected Delivery Route/Plan Labor Preferences- CB/BF classes:no labor support person: Antonio labor intervention preferences: [] pain management options preferred: epidural if requested cut cord/dad catch: yes : yes PP control planned: discussed discussed possible routes of delivery and associated risks: [] special requests: [] Specific Issue/Plans Covid status: [] Flu vaccine: declined Tdap vaccine: given Rhogam: na LARC form signed: yes Problem list reviewed and updated with the most current plan of care details and appropriate orders placed. Relevant counseling for the gestational age provided. Continue routine care and follow up unless otherwise noted in visit notes/problem list details Initial Weight: Not Recorded Date -???-???-???-???-?? ?-???-???-???-???-? ??-???-???- EGA Weight BP Urine Prot -???-???-???-???-?? ?-???-???-???-???-? ??-???-???- Glucose FHR FuHt Pres Dilation -???-???-???-???-?? ?-???-???-???-???-? ??-???-???- Effaced St Visit Note 08/04/24 -???-???-???-???-?? ?-???-???-???-???-? ??-???-???- 8w 0d 162 lb 2 oz 123/80 -???-???-???-???-?? ?-???-???-???-???-? ??-???-???- 165 -???-???-???-???-?? ?-???-???-???-???-? ??-???-???- SM- CRL cons with LMP measuring 8w3d SM- CRL cons with LMP measuring 8w 0d 09/01/24 -???-???-???-???-?? ?-???-???-???-???-? ??-???-???- 12w 0d 163 lb 106/67 Negative -???-???-???-???-?? ?-???-???-???-???-? ??-???-???- Negative 157 -???-???-???-???-?? ?-???-???-???-???-? ??-???-???- KW- vb/cramp ing. anatomy US ordered 10/02/24 -???-???-???-???-?? ?-???-???-???-???-? ??-???-???- 16w 3d 164 lb 2 oz 110/72 Negative -???-???-???-???-?? ?-???-???-???-???-? ??-???-???- Negative 150 -???-???-???-???-?? ?-???-???-???-???-? ??-???-???- SM- no vbc r amping 11/05/24 -???-???-???-???-?? ?-???-???-???-???-? ??-???-???- 21w 2d 174 lb 2 oz 104/65 Negative -???-???-???-???-?? ?-???-???-???-???-? ? (more content not included)... Normal [facility] - Chemistry and C hemistry - challengeOrdered By: Thelma Infante on 01-14-2025 Glucose Ql (U) Negative [facility] - UrinalysisOrder ed By: Thelma Infante on 01-14-2025 Protein Ql (U) Negative [facility] Blender Snuff Office Visit Reporton 01-14-2025 Blender Snuff Office Visit Report [facility]'s [address], [address] [place] [address] OFFICE VISIT Date of Service: 01/14/25 MR#: [id number] Acct: [id number] Name: SPRING BURR Rep #: [id number] : 2000 Provider: ANNE carter Age/Sex: 24/F Location: [facility] [place] Status: Signed Intake Vital Signs 09/01/24 14:10 01/02/25 13:13 01/14/25 09:57 Height 5 ft 8 in 5 ft 8 in 5 ft 8 in Weight: 195 lb 4 oz BMI 29.7 BP 110/78 Intake Visit Reasons: 30 WK OB Chief Complaint: 30 Week OB Nitroglycerin Neutralizer Required: No Is patient in pain?: No Allergies No Known Allergies Allergy (Verified 01/14/25 09:58) Medications ???Medication ???Instructions ???Recorded ???Confirmed ???Type PNV 153-FA 400 mcg-om3 35 mg-dha tab PO 08/01/24 01/14/25 History 25 mg-epa 5 mg-fish oil chew tablet sertraline 50 mg tablet 50 mg PO QDAY 08/01/24 01/14/25 Hi story Last Menstrual Period: 06/06/24 Zika: Zika virus screening: Negative : Yes PFSH PFSH Medical History Pre-eclampsia Family History Grandmother Cancer Mets to brain, lung, bone Breast cancer Paternal Social History adopted: No household members: spouse and children housing: house number of children: 1 current occupational status: employed current occupation: [employer] pets and animals: Yes (Avoid litterbox) pets and animals: cat(s) history of recent travel: No sexually active: Yes Smoking Status: Never smoker alcohol intake: current alcohol intake frequency: holidays/special occasions only details: not while substance use type: does not use well-balanced diet: daily or most days caffeine: No eating out: rarely or never during the past year weight has: decreased > 10 lbs what type of physical activity do you participate in: none daniel/denominational: None seatbelt use: always do you feel safe at home: Yes 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 Date Name GA/Weeks Outcome Route Bth Weight Infant Gen Labor Lgth Anesthesia Del Locatn Provider FOB 05/27/22 Radha 40 live - full term Female epidural [facility] Antonio Delivery Date: 05/27/22 Last Updated by: Petty Villar 40w IOL Pre E HPI 30 WK OB Details: SPRING BURR is a 24 year old who presents for routine OB visit. OB Visit DOMENICO Calculator Estimated Delivery Date Method Current WG Current Estimate 03/16/25 Ultrasound #1 31w 2d Other Estimates 03/13/25 LMP (Certain) 31w 5d Expected Delivery Route/Plan Labor Preferences- CB/BF classes:no labor support person: Antonio labor intervention preferences: [] pain management options preferred: epidural if requested cut cord/dad catch: yes : yes PP control planned: discussed discussed possible routes of delivery and associated risks: [] special requests: [] Specific Issue/Plans Covid status: [] Flu vaccine: declined Tdap vaccine: given Rhogam: na LARC form signed: yes Problem list reviewed and updated with the most current plan of care details and appropriate orders placed. Relevant counseling for the gestational age provided. Continue routine care and follow up unless otherwise noted in visit notes/problem list details Initial Weight: Not Recorded Date -???-???-???-???-?? ?-???-???-???-???-? ??-???-???- EGA Weight BP Urine Prot -???-???-???-???-?? ?-???-???-???-???-? ??-???-???- Glucose FHR FuHt Pres Dilation -???-???-???-???-?? ?-???-???-???-???-? ??-???-???- Effaced St Visit Note 08/04/24 -???-???-???-???-?? ?-???-???-???-???-? ??-???-???- 8w 0d 162 lb 2 oz 123/80 -???-???-???-???-?? ?-???-???-???-???-? ??-???-???- 165 -???-???-???-???-?? ?-???-???-???-???-? ??-???-???- SM- CRL cons with LMP measuring 8w3d SM- CRL cons with LMP measuring 8w 0d 09/01/24 -???-???-???-???-?? ?-???-???-???-???-? ??-???-???- 12w 0d 163 lb 106/67 Negative -???-???-???-???-?? ?-???-???-???-???-? ??-???-???- Negative 157 -???-???-???-???-?? ?-???-???-???-???-? ??-???-???- KW- vb/cramp ing. anatomy US ordered 10/02/24 -???-???-???-???-?? ?-???-???-???-???-? ??-???-???- 16w 3d 164 lb 2 oz 110/72 Negative -???-???-???-???-?? ?-???-???-???-???-? ??-???-???- Negative 150 -???-???-???-???-?? ?-???-???-???-???-? ??-???-???- SM- no vbc r amping 11/05/24 -???-???-???-???-?? ?-???-???-???-???-? ??-???-???- 21w 2d 174 lb 2 oz 104/65 Negative (more content not included)... Normal [facility] Absolute lymphocyte countOrd ered By: Zena Hernandez on 01-02-2025 Lymphocytes Auto (Unsp spec) [#/Vol] 1.51 10*3/uL 0.83-4.51 [facility] Absolute neutrophil countOrd ered By: Zena Hernandez on 01-02-2025 Neutrophils (Bld) [#/Vol] 6.8 10*3/uL 2.0-7.7 [facility] Automated lymphocyte count a s percentage of total leukocytesOrdered By: Zena Hernandez on 01-02-2025 Lymphocytes/100 WBC Auto (Unsp spec) 16.6 % Low 19-41 [facility] Basophil percentageOrdered B y: Zena Hernandez on 01-02-2025 Basophils/100 WBC (Bld) 0.3 % 0-1 W [facility] CBC W/Diff, Automatedon 04- Absolute Lymph 1.51 X10 3/uL Normal 0.83-4.51 [facility] Comment on above: Performed By: #### L 100.0100 ####[facility] [address] [place], [address] Absolute Neut 6.8 X10 3/uL Normal 2.0-7.7 [facility] Comment on above: Performed By: #### L 100.0100 ####[facility] [address] [place], [address] Basophils/100 WBC (Bld) 0.3 % Normal 0-1 W [facility] Comment on above: Performed By: #### L 100.0100 ####[facility] [address] [place], [address] Eosinophils/100 WBC (Bld) 1.4 % Normal 0-5 [facility] Comment on above: Performed By: #### L 100.0100 ####[facility] [address] [place], [address] Erythrocyte distribution width (RBC) [Ratio] 12.4 % Normal 11.6-14.6 [facility] Comment on above: Performed By: #### L 100.0100 ####[facility] [address] [place], [address] Hematocrit (Bld) [Volume fraction] 34.8 % Low 37-47 [facility] Comment on above: Performed By: #### L 100.0100 ####[facility] [address] [place], [address] Hemoglobin (Bld) [Mass/Vol] 11.5 g/dL Low 12.0-15.0 [facility] Comment on above: Performed By: #### L 100.0100 ####[facility] [address] [place], [address] IG% 0.800 Normal 0.0-0.9 [facility] Comment on above: Result Comment: IG% - Immature Granulocytes (promyelocytes, myelocytes and metamyelocytes) > 1% indicates that a LEFT SHIFT is Present. Performed By: #### L 100.0100 ####[facility] [address] [place], [address] Lymphocytes/100 WBC (Bld) 16.6 % Low 19-41 [facility] Comment on above: Performed By: #### L 100.0100 ####[facility] [address] [place], [address] MCH (RBC) [Entitic mass] 29.3 pg Normal 27.0-32.0 [facility] Comment on above: Performed By: #### L 100.0100 ####[facility] [address] [place], [address] MCHC (RBC) [Mass/Vol] 33.0 g/dL Normal 32-[address] [facility] Comment on above: Performed By: #### L 100.0100 ####[facility] [address] [place], [address] MCV (RBC) [Entitic vol] 88.5 fL Normal 81-99 [facility] Comment on above: Performed By: #### L 100.0100 ####[facility] [address] [place], [address] Monocytes/100 WBC (Bld) 5.9 % Normal 0-10 [facility] Comment on above: Performed By: #### L 100.0100 ####[facility] [address] [place], [address] Neutrophils/100 WBC (Bld) 75.0 % High 47-70 [facility] Comment on above: Performed By: #### L 100.0100 ####[facility] [address] [place], [address] Nucleated RBC (Bld) [#/Vol] 0 10*3/uL Normal 0-5 [facility] Comment on above: Performed By: #### L 100.0100 ####[facility] [address] [place], [address] Platelet mean volume (Bld) [Entitic vol] 9.5 fL Normal 6.2-12.0 [facility] Comment on above: Performed By: #### L 100.0100 ####[facility] [address] [place], [address] Platelets (Bld) [#/Vol] 294 10*3/uL Normal 150-450 [facility] Comment on above: Performed By: #### L 100.0100 ####[facility] [address] [place], [address] RBC (Bld) [#/Vol] 3.93 10*6/uL Low 4.2-5.4 [facility] Comment on above: Performed By: #### L 100.0100 ####[facility] [address] [place], [address] RDW SD 40.4 fl Normal 35.1-43.9 [facility] Comment on above: Performed By: #### L 100.0100 ####[facility] [address] [place], [address] WBC (Bld) [#/Vol] 9.1 10*3/uL Normal 4.4-11.[address] [facility] Comment on above: Performed By: #### L 100.0100 ####[facility] [address] [place], [address] Eosinophil percentageOrdered By: Zena Hernandez on 01-02-2025 Eosinophils/100 WBC (Bld) 1.4 % 0-5 [facility] Erythrocyte distribution wid th ratioOrdered By: Zena Hernandez on 01-02-2025 Erythrocyte distribution width (RBC) [Ratio] 12.4 % 11.6-14.6 [facility] Erythrocyte distribution wid th standard deviationOrdered By: Zena Hernandez on 01-02-2025 Erythrocyte distribution width (RBC) [Ratio] 40.4 fl 35.1-43.9 [facility] Glucose Challenge Gest 1H 50 brynn 01-02-2025 GLU GEST 50g 1H 67 mg/dL Low 70-140 [facility] Comment on above: Performed By: #### L 3890.6006, L501.0250, L509.8002 #### [facility] [address] [place], [place], [id number] Glucose measurement at 2 shefali rs post-dose gestational glucose tolerance testOrdered By: Zena Hernandez on 01-02-2025 Glucose [Mass/Vol] 67 mg/dL Low 70-[address] [facility] HIVon 01-02-2025 HIV Non-Reactive Normal Nonreactive [facility] Comment on above: Result Comment: Non- Reactive Reactive Repeatedly reactive samples must be confirmed according to CDC recommended confirmatory algorithms. The subresults for either HIVAG or AHIV can be used as an aid in the selection of the confirmation algorithm for reactive samples. Send out specimens with Reactive results to [facility] for confirmation. Order the HIV antibody detection and differentiation: lc#[id number] Performed By: #### L 3890.6006, L501.0250, L509.8002 #### [facility] [address] [facility] [place], [place], [id number] Hematocrit Auto (Bld) [Volum e fraction]Ordered By: Zena Hernandez on 01-02-2025 Hematocrit (Bld) [Volume fraction] 34.8 % Low 37-47 [facility] Hemoglobin measurementOrdere d By: Zena Hernandez on 01-02-2025 Hemoglobin (Bld) [Mass/Vol] 11.5 g/dL Low 12.0-15.0 [facility] Immature granulocytes/100 WB C Auto (Bld)Ordered By: Zena Hernandez on 01-02-2025 Immature granulocytes/100 WBC (Bld) 0.800 % 0.0-0.9 [facility] Comment on above: IG% - Immature Granu locytes (promyelocytes, myelocytes and metamyelocytes) > 1% indicates that a LEFT SHIFT is Present. Laboratory - Chemistry and C hemistry - challengeOrdered By: Zena Hernandez on 01-02-2025 Glucose Ql (U) Negative [facility] [facility] - UrinalysisOrder ed By: Zena Hernandez on 01-02-2025 Protein Ql (U) Negative [facility] MCV (mean corpuscular volume ) determinationOrdered By: Zena Hernandez on 01-02-2025 MCV (RBC) [Entitic vol] 88.5 fL 81-99 [facility] Mean corpuscular hemoglobin (MCH) determinationOrdered By: Zena Hernandez on 01-02-2025 MCH (RBC) [Entitic mass] 29.3 pg 27.0-32.0 [facility] Mean corpuscular hemoglobin concentration (MCHC) determinationOrdered By: Zena Hernandez on 01-02-2025 MCHC (RBC) [Mass/Vol] 33.0 g/dL 32-[address] [facility] Mean platelet volume determi nationOrdered By: Zena Hernandez on 01-02-2025 Platelet mean volume (Bld) [Entitic vol] 9.5 fL 6.2-12.0 [facility] Monocyte percentageOrdered B y: Zena Hernandez on 01-02-2025 Monocytes/100 WBC (Bld) 5.9 % 0-10 [facility] Neutrophil percentageOrdered By: Zena Hernandez on 01-02-2025 Neutrophils/100 WBC (Bld) 75.0 % High 47-70 [facility] No Panel InformationOrdered By: Zena Hernandez on 01-02-2025 HIV (1&2) Antibody Non-Reactive Nonreactive [facility] Comment on above: Non-ReactiveReactive Repeatedly reactive samples must be confirmed according to CDC recommended confirmatory algorithms. The subresults for either HIVAG or AHIV can be used as an aid in the selection of the confirmation algorithm for reactive samples.Send out specimens with Reactive results to [facility] for confirmation.Order the HIV antibody detection and differentiation: #[id number] Nucleated red blood cell per centageOrdered By: Zena Hernandez on 01-02-2025 Nucleated RBC/100 WBC (Bld) [Ratio] 0 % 0-5 [facility] Office Visit Reporton 01-02-2025 Blender [facility]uff Office Visit Report [address], [address] [place] [address] OFFICE VISIT Date of Service: 01/02/25 MR#: [id number] Acct: [id number] Name: SPRING BURR Rep #: [id number] 1 : 2000 Provider: FAWN Ye ams Age/Sex: 24/F Location: [facility] [place] Status: Signed Intake Vital Signs 09/01/24 14:10 12/05/24 10:33 01/02/25 13:13 Height 5 ft 8 in 5 ft 8 in 5 ft 8 in Weight: 189 lb 4 oz BMI 28.8 BP 124/77 H Intake Visit Reasons: 28 WK OB/GLUCOSE Chief Complaint: 28wk OB Nitroglycerin Neutralizer Required: No Is patient in pain?: No Allergies No Known Allergies Allergy (Verified 01/02/25 13:11) Medications ???Medication ???Instructions ???Recorded ???Confirmed ???Type PNV 153-FA 400 mcg-om3 35 mg-dha tab PO 08/01/24 01/02/25 History 25 mg-epa 5 mg-fish oil chew tablet sertraline 50 mg tablet 50 mg PO QDAY 08/01/24 01/02/25 Hi story Last Menstrual Period: 06/06/24 : No Have you fallen in the past year?: No PFSH PFSH Medical History Pre-eclampsia Family History Grandmother Cancer Mets to brain, lung, bone Breast cancer Paternal Social History adopted: No household members: spouse and children housing: house number of children: 1 current occupational status: employed current occupation: [employer] pets and animals: Yes (Avoid litterbox) pets and animals: cat(s) history of recent travel: No sexually active: Yes Smoking Status: Never smoker alcohol intake: current alcohol intake frequency: holidays/special occasions only details: not while substance use type: does not use well-balanced diet: daily or most days caffeine: No eating out: rarely or never during the past year weight has: decreased > 10 lbs what type of physical activity do you participate in: none daniel/denominational: None seatbelt use: always do you feel safe at home: Yes 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 Date Name GA/Weeks Outcome Route Bth Weight Infant Gen Labor Lgth Anesthesia Del Locatn Provider FOB 05/27/22 Radha 40 live - full term [facility] Delivery Date: 05/27/22 Last Updated by: Petty Villar 40w IOL Pre E HPI 28 WK OB/GLUCOSE Details: SPRING BURR is a 24 year old who presents for routine OB visit. OB Visit DOMENICO Calculator Estimated Delivery Date Method Current WG Current Estimate 03/16/25 Ultrasound #1 29w 4d Other Estimates 03/13/25 LMP (Certain) 30w 0d Expected Delivery Route/Plan Labor Preferences- CB/BF classes: [] labor support person: [] labor intervention preferences: [] pain management options preferred: [] cut cord/dad catch: [] : [] PP control planned: [] discussed possible routes of delivery and associated risks: [] special requests: [] Specific Issue/Plans Covid status: [] Flu vaccine: declined Tdap vaccine: [] Rhogam: [] LARC form signed: [] Problem list reviewed and updated with the most current plan of care details and appropriate orders placed. Relevant counseling for the gestational age provided. Continue routine care and follow up unless otherwise noted in visit notes/problem list details Initial Weight: Not Recorded Date -???-???-???-???-?? ?-???-???-???-???-? ??-???-???- EGA Weight BP Urine Prot -???-???-???-???-?? ?-???-???-???-???-? ??-???-???- Glucose FHR FuHt Pres Dilation -???-???-???-???-?? ?-???-???-???-???-? ??-???-???- Effaced St Visit Note 08/04/24 -???-???-???-???-?? ?-???-???-???-???-? ??-???-???- 8w 0d 162 lb 2 oz 123/80 -???-???-???-???-?? ?-???-???-???-???-? ??-???-???- 165 -???-???-???-???-?? ?-???-???-???-???-? ??-???-???- SM- CRL cons with LMP measuring 8w3d SM- CRL cons with LMP measuring 8w 0d 09/01/24 -???-???-???-???-?? ?-???-???-???-???-? ??-???-???- 12w 0d 163 lb 106/67 Negative -???-???-???-???-?? ?-???-???-???-???-? ??-???-???- Negative 157 -???-???-???-???-?? ?-???-???-???-???-? ??-???-???- KW- vb/brooklyn ing. anatomy US ordered 10/02/24 -???-???-???-???-?? ?-???-???-???-???-? ??-???-???- 16w 3d 164 lb 2 oz 110/72 Negative -???-???-???-???-?? ?-???-???-???-???-? ??-???-???- Negative 150 -???-???-???-???-?? ?-???-???-???-???-? ??-???-???- SM- no vbc r amping 11/05/24 -???-???-???-???-?? ?-???-???-???-???-? ??-???-???- 21w 2d 174 lb 2 oz 104/65 Negative -???-???-???-???-?? ?-???-???-???-??? (more content not included)... Normal [facility] Platelet countOrdered By: Jhonny Hernandez on 01-02-2025 Platelets (Bld) [#/Vol] 294 10*3/uL 150-450 [facility] RBC Auto (Bld) [#/Vol]Ordere d By: Zena Hernandez on 01-02-2025 RBC (Bld) [#/Vol] 3.93 10*6/uL Low 4.2-5.4 [facility] Syphilis Antibodieson 2024 Syphilis Abs Non-Reactive Normal Nonreactive [facility] Comment on above: Performed By: #### L 3890.6006, L501.0250, L509.8002 #### [facility] Laboratory [address] [place], [address] White blood cell (WBC) count Ordered By: Zena Hernandez on 01-02-2025 WBC (Bld) [#/Vol] 9.1 10*3/uL 4.4-11.[address] [facility] Absolute lymphocyte countOrd ered By: Zena Hernandez on 12-05-2024 Lymphocytes Auto (Unsp spec) [#/Vol] 1.81 10*3/uL 0.83-4.51 [facility] Absolute neutrophil countOrd ered By: Zena Hernandez on 12-05-2024 Neutrophils (Bld) [#/Vol] 5.5 10*3/uL 2.0-7.7 [facility] Anion gap in Serum or Plasma Ordered By: Zena Hernandez on 12-05-2024 Anion gap [Moles/Vol] 10 mmol/L 5-[address] [facility] Automated lymphocyte count a s percentage of total leukocytesOrdered By: Zena Hernandez on 12-05-2024 Lymphocytes/100 WBC Auto (Unsp spec) 23.0 % - [facility] BUN/creatinine ratioOrdered By: Zena Hernandez on 12-05-2024 Urea nitrogen/Creatinine [Mass ratio] 18.2 mg/mg 10-20 [facility] Basophil percentageOrdered B y: Zena Hernandez on 12-05-2024 Basophils/100 WBC (Bld) 0.3 % 0-1 [facility] Bilirubin, totalOrdered By: Zena Hernandez on 12-05-2024 Bilirubin [Mass/Vol] 0.20 mg/dL 0.00-1.30 [facility] CBC W/Diff, Automatedon 11-16 Absolute Lymph 1.81 X10 3/uL Normal 0.83-4.51 [facility] Comment on above: Performed By: #### L 100.0100, L500.4050 ####[facility] [address] [place], [address] Absolute Neut 5.5 X10 3/uL Normal 2.0-7.7 [facility] Comment on above: Performed By: #### L 100.0100, L500.4050 ####[facility] [address] [place], [address] Basophils/100 WBC (Bld) 0.3 % Normal 0-1 [facility] Comment on above: Performed By: #### L 100.0100, L500.4050 ####[facility] [address] [place], [address] Eosinophils/100 WBC (Bld) 1.4 % Normal 0-5 [facility] Comment on above: Performed By: #### L 100.0100, L500.4050 ####[facility] [address] [place], [address] Erythrocyte distribution width (RBC) [Ratio] 12.8 % Normal 11.6-14.6 [facility] Comment on above: Performed By: #### L 100.0100, L500.4050 ####[facility] [address] [place], [address] Hematocrit (Bld) [Volume fraction] 35.1 % Low 37-47 [facility] Comment on above: Performed By: #### L 100.0100, L500.4050 ####[facility] [address] [place], [address] Hemoglobin (Bld) [Mass/Vol] 12.0 g/dL Normal 12.0-15.0 [facility] Comment on above: Performed By: #### L 100.0100, L500.4050 ####[facility] [address] [place], [address] IG% 0.600 Normal 0.0-0.9 [facility] Comment on above: Result Comment: IG% - Immature Granulocytes (promyelocytes, myelocytes and metamyelocytes) > 1% indicates that a LEFT SHIFT is Present. Performed By: #### L 100.0100, L500.4050 ####[facility] [address] [place], [address] Lymphocytes/100 WBC (Bld) 23.0 % Normal 19-41 [facility] Comment on above: Performed By: #### L 100.0100, L500.4050 ####[facility] [address] [place], [address] MCH (RBC) [Entitic mass] 30.3 pg Normal 27.0-32.0 [facility] Comment on above: Performed By: #### L 100.0100, L500.4050 ####[facility] [address] [place], [address] MCHC (RBC) [Mass/Vol] 34.2 g/dL Normal 32-[address] [facility] Comment on above: Performed By: #### L 100.0100, L500.4050 ####[facility] [address] [place], [address] MCV (RBC) [Entitic vol] 88.6 fL Normal 81-99 [facility] Comment on above: Performed By: #### L 100.0100, L500.4050 ####[facility] [address] [place], [address] Monocytes/100 WBC (Bld) 4.4 % Normal 0-10 [facility] Comment on above: Performed By: #### L 100.0100, L500.4050 ####[facility] [address] [place], [address] Neutrophils/100 WBC (Bld) 70.3 % High 47-70 [facility] Comment on above: Performed By: #### L 100.0100, L500.4050 ####[facility] [address] [place], [address] Nucleated RBC (Bld) [#/Vol] 0 10*3/uL Normal 0-5 [facility] Comment on above: Performed By: #### L 100.0100, L500.4050 ####[facility] [address] [place], [address] Platelet mean volume (Bld) [Entitic vol] 8.8 fL Normal 6.2-12.0 [facility] Comment on above: Performed By: #### L 100.0100, L500.4050 ####[facility] [address] [place], [address] Platelets (Bld) [#/Vol] 236 10*3/uL Normal 150-450 [facility] Comment on above: Performed By: #### L 100.0100, L500.4050 ####[facility] [address] [place], [address] RBC (Bld) [#/Vol] 3.96 10*6/uL Low 4.2-5.4 [facility] Comment on above: Performed By: #### L 100.0100, L500.4050 ####[facility] [address] [place], [address] RDW SD 41.6 fl Normal 35.1-43.9 [facility] Comment on above: Performed By: #### L 100.0100, L500.4050 ####[facility] [address] [place], [address] WBC (Bld) [#/Vol] 7.9 10*3/uL Normal 4.4-11.[address] [facility] Comment on above: Performed By: #### L 100.0100, L500.4050 ####[facility] [address] [place], [address] Carbon dioxide, total [Moles /volume] in Central venous bloodOrdered By: Zena Hernandez on 12-05-2024 CO2 [Moles/Vol] 23.0 mmol/L 21.0-32.0 [facility] Chloride assayOrdered By: Jhonny Hernandez on 12-05-2024 Chloride [Moles/Vol] 103 mmol/L 98-108 [facility] Comprehensive Metabolic Prof ilon 12-05-2024 Albumin [Mass/Vol] 3.6 g/dL Normal 3.5-5.[address] [facility] Comment on above: Performed By: #### L 100.0100, L500.4050 ####[facility] [address] [place], [address] Albumin/Globulin [Mass ratio] 1.2 {ratio} Normal 0.9-2.4 [facility] Comment on above: Performed By: #### L 100.0100, L500.4050 ####[facility] [address] [place], [address] ALK PHOS 88 U/L Normal 35-104 [facility] Comment on above: Performed By: #### L 100.0100, L500.4050 ####[facility] [address] [place], [address] ALT [Catalytic activity/Vol] 14 U/L Normal <=34 [facility] Comment on above: Performed By: #### L 100.0100, L500.4050 ####[facility] [address] [place], [address] AST [Catalytic activity/Vol] 18 U/L Normal <=31 [facility] Comment on above: Performed By: #### L 100.0100, L500.4050 ####[facility] [address] [place], [address] Bilirubin [Mass/Vol] 0.20 mg/dL Normal 0.00-1.30 [facility] Comment on above: Performed By: #### L 100.0100, L500.4050 ####[facility] [address] [place], [address] BUN/CRE 18.2 RATIO Normal 10-20 [facility] Comment on above: Performed By: #### L 100.0100, L500.4050 ####[facility] [address] [place], [address] Calcium [Mass/Vol] 8.9 mg/dL Normal 7.6-11.[address] [facility] Comment on above: Performed By: #### L 100.0100, L500.4050 ####[facility] [address] [place], [address] Chloride [Moles/Vol] 103 mmol/L Normal 98-108 [facility] Comment on above: Performed By: #### L 100.0100, L500.4050 ####[facility] [address] [place], [address] CO2 [Moles/Vol] 23.0 mmol/L Normal 21.0-32.0 [facility] Comment on above: Performed By: #### L 100.0100, L500.4050 ####[facility] [address] [place], [address] Creatinine [Mass/Vol] 0.54 mg/dL Low 0.70-1.[address] [facility] Comment on above: Performed By: #### L 100.0100, L500.4050 ####[facility] [address] [place], [address] GAP 10 Normal 5-15 [facility] Comment on above: Performed By: #### L 100.0100, L500.4050 ####[facility] [address] [place], [address] GFR/1.73 sq M.predicted among non-blacks MDRD (S/P/Bld) [Vol rate/Area] 130 mL/min/{1.73_m2} Normal >60 [facility] Comment on above: Result Comment: mL/m in/1.73m2 CKD-EPI Creatinine Equation (2020) Performed By: #### L 100.0100, L500.4050 ####[facility] [address] [place], [address] Globulin (S) [Mass/Vol] 3.0 g/dL Normal 2.2-4.2 [facility] Comment on above: Performed By: #### L 100.0100, L500.4050 ####[facility] [address] [place], [address] Glucose [Mass/Vol] 93 mg/dL Normal 70-[address] [facility] Comment on above: Performed By: #### L 100.0100, L500.4050 ####[facility] [address] [place], [address] Potassium [Moles/Vol] 3.7 mmol/L Normal 3.3-5.[address] [facility] Comment on above: Performed By: #### L 100.0100, L500.4050 ####[facility] [address] [place], [address] Sodium [Moles/Vol] 136 mmol/L Normal 133-[address] [facility] Comment on above: Performed By: #### L 100.0100, L500.4050 ####[facility] [address] [place], [address] T PROT 6.6 g/dL Normal 5.9-8.4 [facility] Comment on above: Performed By: #### L 100.0100, L500.4050 ####[facility] [address] [place], [address] Urea nitrogen [Mass/Vol] 10 mg/dL Normal 4-19 [facility] Comment on above: Performed By: #### L 100.0100, L500.4050 ####[facility] [address] [place], [address] Eosinophil percentageOrdered By: Zena Hernandez on 12-05-2024 Eosinophils/100 WBC (Bld) 1.4 % 0-5 [facility] Erythrocyte distribution wid th ratioOrdered By: Zena Hernandez on 12-05-2024 Erythrocyte distribution width (RBC) [Ratio] 12.8 % 11.6-14.6 [facility] Erythrocyte distribution wid th standard deviationOrdered By: Zena Hernandez on 12-05-2024 Erythrocyte distribution width (RBC) [Entitic vol] 41.6 fL 35.1-43.9 [facility] Erythrocyte distribution width (RBC) [Ratio] 41.6 fl 35.1-43.9 [facility] GFR/1.73 sq M.predicted hiram g non-blacks MDRD (S/P/Bld) [Vol rate/Area]Ordered By: Zena Hernandez on 12-05-2024 Estimated GFR (MDRD) Non-Af Amer 130 >60 [facility] Comment on above: mL/min/1.73m2 CKD-EP I Creatinine Equation (2020) Glomerular filtration rate ( GFR) estimation/1.73 sq m using serum, plasma, or whole bOrdered By: Zena Hernandez on 12-05-2024 GFR/1.73 sq M.predicted among non-blacks MDRD (S/P/Bld) [Vol rate/Area] 130 mL/min/{1.73_m2} >60 [facility] Comment on above: mL/min/1.73m2 CKD-EP I Creatinine Equation (2020) Hematocrit Auto (Bld) [Volum e fraction]Ordered By: Zena Hernandez on 12-05-2024 Hematocrit (Bld) [Volume fraction] 35.1 % Low 37-47 [facility] Hemoglobin measurementOrdere d By: Zena Hernandez on 12-05-2024 Hemoglobin (Bld) [Mass/Vol] 12.0 g/dL 12.0-15.0 [facility] Immature granulocytes/100 WB C Auto (Bld)Ordered By: Zena Hernandez on 12-05-2024 Immature granulocytes/100 WBC (Bld) 0.600 % 0.0-0.9 [facility] Comment on above: IG% - Immature Granu locytes (promyelocytes, myelocytes and metamyelocytes) > 1% indicates that a LEFT SHIFT is Present. Laboratory - Chemistry and C hemistry - challengeOrdered By: Zena Hernandez on 12-05-2024 AST [Catalytic activity/Vol] 18 U/L <32 [facility] Glucose Ql (U) Negative [facility] Laboratory - UrinalysisOrder ed By: Zena Hernandez on 12-05-2024 Protein Ql (U) Negative [facility] Lymphocytes Auto (Unsp spec) [#/Vol]Ordered By: Zena Hernandez on 12-05-2024 Lymphocytes (Bld) [#/Vol] 1.81 10*3/uL 0.83-4.51 [facility] Lymphocytes/100 WBC Auto (Un sp spec)Ordered By: Zena Hernandez on 12-05-2024 Lymphocytes/100 WBC (Bld) 23.0 % 19-41 [facility] MCV (mean corpuscular volume ) determinationOrdered By: Zena Hernandez on 12-05-2024 MCV (RBC) [Entitic vol] 88.6 fL 81-99 [facility] Mean corpuscular hemoglobin (MCH) determinationOrdered By: Zena Hernandez on 12-05-2024 MCH (RBC) [Entitic mass] 30.3 pg 27.0-32.0 [facility] Mean corpuscular hemoglobin concentration (MCHC) determinationOrdered By: Zena Hernandez on 12-05-2024 MCHC (RBC) [Mass/Vol] 34.2 g/dL 32-[address] [facility] Mean platelet volume determi nationOrdered By: Zena Hernandez on 12-05-2024 Platelet mean volume (Bld) [Entitic vol] 8.8 fL 6.2-12.0 [facility] Monocyte percentageOrdered B y: Zena Hernandez on 12-05-2024 Monocytes/100 WBC (Bld) 4.4 % 0-10 [facility] Neutrophil percentageOrdered By: Zena Hernandez on 12-05-2024 Neutrophils/100 WBC (Bld) 70.3 % High 47-70 [facility] Nucleated red blood cell per centageOrdered By: Zena Hernandez on 12-05-2024 Nucleated RBC/100 WBC (Bld) [Ratio] 0 % 0-5 [facility] Blender Snuff Office Visit Reporton 12-05-2024 Blender Snuff Office Visit Report [facility], [address] [place] [address] OFFICE VISIT Date of Service: 12/05/24 MR#: [id number] Acct: [id number] Name: SPRING BURR Rep #: [id number] 2 : 2000 Provider: FAWN Ye ams Age/Sex: 24/F Location: [facility] [place] Status: Signed Intake Vital Signs 09/01/24 14:10 11/05/24 09:06 12/05/24 10:33 Height 5 ft 8 in 5 ft 8 in 5 ft 8 in Weight: 174 lb 2 oz 181 lb 6 oz BMI 26.4 27.6 BP 104/65 106/71 Intake Visit Reasons: 24 WK OB Chief Complaint: 24wk ob Is patient in pain?: No Allergies No Known Allergies Allergy (Verified 12/05/24 10:38) Medications ???Medication ???Instructions ???Recorded ???Confirmed ???Type PNV 153-FA 400 mcg-om3 35 mg-dha tab PO 08/01/24 12/05/24 History 25 mg-epa 5 mg-fish oil chew tablet sertraline 50 mg tablet 50 mg PO QDAY 08/01/24 12/05/24 Hi story Last Menstrual Period: 06/06/24 : No PFSH PFSH Medical History Pre-eclampsia Family History Grandmother Cancer Mets to brain, lung, bone Breast cancer Paternal Social History adopted: No household members: spouse and children housing: house number of children: 1 current occupational status: employed current occupation: [employer] pets and animals: Yes (Avoid litterbox) pets and animals: cat(s) history of recent travel: No sexually active: Yes Smoking Status: Never smoker alcohol intake: current alcohol intake frequency: holidays/special occasions only details: not while substance use type: does not use well-balanced diet: daily or most days caffeine: No eating out: rarely or never during the past year weight has: decreased > 10 lbs what type of physical activity do you participate in: none daniel/denominational: None seatbelt use: always do you feel safe at home: Yes 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 Date Name GA/Weeks Outcome Route Bth Weight Infant Gen Labor Lgth Anesthesia Del Locatn Provider FOB 05/27/22 Radha 40 live - full term Female epidural [facility] Antonio Delivery Date: 05/27/22 Last Updated by: Petty Villar 40w IOL Pre E HPI 24 WK OB Details: SPRING BURR is a 24 year old who presents for routine OB visit. OB Visit DOMENICO Calculator Estimated Delivery Date Method Current WG Current Estimate 03/16/25 Ultrasound #1 25w 4d Other Estimates 03/13/25 LMP (Certain) 26w 0d Expected Delivery Route/Plan Labor Preferences- CB/BF classes: [] labor support person: [] labor intervention preferences: [] pain management options preferred: [] cut cord/dad catch: [] : [] PP control planned: [] discussed possible routes of delivery and associated risks: [] special requests: [] Specific Issue/Plans Covid status: [] Flu vaccine: declined Tdap vaccine: [] Rhogam: [] LARC form signed: [] Problem list reviewed and updated with the most current plan of care details and appropriate orders placed. Relevant counseling for the gestational age provided. Continue routine care and follow up unless otherwise noted in visit notes/problem list details Initial Weight: Not Recorded Date -???-???-???-???-?? ?-???-???-???-???-? ??-???-???- EGA Weight BP Urine Prot -???-???-???-???-?? ?-???-???-???-???-? ??-???-???- Glucose FHR FuHt Pres Dilation -???-???-???-???-?? ?-???-???-???-???-? ??-???-???- Effaced St Visit Note 08/04/24 -???-???-???-???-?? ?-???-???-???-???-? ??-???-???- 8w 0d 162 lb 2 oz 123/80 -???-???-???-???-?? ?-???-???-???-???-? ??-???-???- 165 -???-???-???-???-?? ?-???-???-???-???-? ??-???-???- SM- CRL cons with LMP measuring 8w3d SM- CRL cons with LMP measuring 8w 0d 09/01/24 -???-???-???-???-?? ?-???-???-???-???-? ??-???-???- 12w 0d 163 lb 106/67 Negative -???-???-???-???-?? ?-???-???-???-???-? ??-???-???- Negative 157 -???-???-???-???-?? ?-???-???-???-???-? ??-???-???- KW- vb/cramp ing. anatomy US ordered 10/02/24 -???-???-???-???-?? ?-???-???-???-???-? ??-???-???- 16w 3d 164 lb 2 oz 110/72 Negative -???-???-???-???-?? ?-???-???-???-???-? ??-???-???- Negative 150 -???-???-???-???-?? ?-???-???-???-???-? ??-???-???- SM- no vbc r amping 11/05/24 -???-???-???-???-?? ?-???-???-???-???-? ??-???-???- 21w 2d 174 lb 2 oz 104/65 Negative -???-???-???-???-?? ?-???-???-???-???-? ??-???-???- Negative 145 -???-???-???-???-?? ?-???-???-? (more content not included)... Normal [facility] Platelet countOrdered By: Jhonny Hernandez on 12-05-2024 Platelets (Bld) [#/Vol] 236 10*3/uL 150-450 [facility] Potassium (Unsp spec) [Mass/ Vol]Ordered By: Zena Hernandez on 12-05-2024 Potassium [Moles/Vol] 3.7 mmol/L 3.3-5.[address] [facility] Potassium measurement (mass/ volume)Ordered By: Zena Hernandez on 12-05-2024 Potassium (Unsp spec) [Mass/Vol] 3.7 mmol/L 3.3-5.1 [facility] RBC Auto (Bld) [#/Vol]Ordere d By: Zena Hernandez on 12-05-2024 RBC (Bld) [#/Vol] 3.96 10*6/uL Low 4.2-5.4 [facility] Serum creatinine measurement (mass/volume)Ordered By: Zena Hernandez on 12-05-2024 Creatinine [Mass/Vol] 0.54 mg/dL Low 0.70-1.[address] [facility] Serum globulin measurementOr dered By: Zena Hernandez on 12-05-2024 Globulin (S) [Mass/Vol] 3.0 g/dL 2.2-4.2 [facility] Serum glucose measurement (m ass/volume)Ordered By: Zena Hernandez on 12-05-2024 Glucose [Mass/Vol] 93 mg/dL 70-[address] [facility] Serum or plasma alanine edward otransferase (ALT) measurementOrdered By: Zena Hernandez on 12-05-2024 ALT [Catalytic activity/Vol] 14 U/L <35 [facility] Serum or plasma albumin stephanie urement (mass/volume)Ordered By: Zena Hernandez on 12-05-2024 Albumin [Mass/Vol] 3.6 g/dL 3.5-5.[address] [facility] Serum or plasma albumin/glob ulin mass ratioOrdered By: Zena Hernandez on 12-05-2024 Albumin/Globulin [Mass ratio] 1.2 {ratio} 0.9-2.4 [facility] Serum or plasma alkaline cinthya sphatase measurementOrdered By: Zena Hernandez on 12-05-2024 ALP [Catalytic activity/Vol] 88 U/L 35-104 [facility] Serum or plasma calcium stephanie urement (mass/volume)Ordered By: Zena Hernandez on 12-05-2024 Calcium [Mass/Vol] 8.9 mg/dL 7.6-11.[address] [facility] Serum or plasma urea nitroge n measurement (mass/volume)Ordered By: Zena Hernandez on 12-05-2024 Urea nitrogen [Mass/Vol] 10 mg/dL 4-19 [facility] Sodium levelOrdered By: Estrella Hernandez on 12-05-2024 Sodium [Moles/Vol] 136 mmol/L 133-[address] [facility] Total proteinOrdered By: Blane Hernandez on 12-05-2024 Protein [Mass/Vol] 6.6 g/dL 5.9-8.[address] [facility] White blood cell (WBC) count Ordered By: Zena Hernandez on 12-05-2024 WBC (Bld) [#/Vol] 7.9 10*3/uL 4.4-11.[address] [facility] Laboratory - Chemistry and C hemistry - challengeOrdered By: Zena Hernandez on 11-05-2024 Glucose Ql (U) Negative [facility] Laboratory - UrinalysisOrder ed By: Zena Hernandez on 11-05-2024 Protein Ql (U) Negative [facility] Blender Snuff Office Visit Reporton 11-05-2024 Blender Snuff Office Visit Report [facility]'[address], [address] [place] [address] OFFICE VISIT Date of Service: 11/05/24 MR#: [id number] Acct: [id number] Name: SPRING BURR Rep #: [id number] 5 : 2000 Provider: FAWN Ye [facility] Age/Sex: 24/F Location: [facility] [place] Status: Signed Intake Vital Signs 09/01/24 14:10 10/02/24 09:46 11/05/24 09:06 Height 5 ft 8 in 5 ft 8 in 5 ft 8 in Weight: 174 lb 2 oz BMI 26.4 BP 104/65 Intake Visit Reasons: 20 WK OB Nitroglycerin Neutralizer Required: No Is patient in pain?: No Feel stressed/tense/nerv ous/anxious/difficu lty sleeping: not at all Allergies No Known Allergies Allergy (Verified 11/05/24 09:06) Medications ???Medication ???Instructions ???Recorded ???Confirmed ???Type PNV 153-FA 400 mcg-om3 35 mg-dha tab PO 08/01/24 11/05/24 History 25 mg-epa 5 mg-fish oil chew tablet sertraline 50 mg tablet 50 mg PO QDAY 08/01/24 11/05/24 Hi story Last Menstrual Period: 06/06/24 Zika: Zika virus screening: Negative : No Have you fallen in the past year?: No PFSH PFSH Medical History Pre-eclampsia Family History Grandmother Cancer Mets to brain, lung, bone Breast cancer Paternal Social History adopted: No household members: spouse and children housing: house number of children: 1 current occupational status: employed current occupation: [employer] pets and animals: Yes (Avoid litterbox) pets and animals: cat(s) history of recent travel: No sexually active: Yes Smoking Status: Never smoker alcohol intake: current alcohol intake frequency: holidays/special occasions only details: not while substance use type: does not use well-balanced diet: daily or most days caffeine: No eating out: rarely or never during the past year weight has: decreased > 10 lbs what type of physical activity do you participate in: none daniel/denominational: None seatbelt use: always do you feel safe at home: Yes 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 Date Name GA/Weeks Outcome Route Bth Weight Infant Gen Labor Lgth Anesthesia Del Locatn Provider FOB 05/27/22 Radha 40 live - full term Female epidural [facility] AARON Alvarez Delivery Date: 05/27/22 Last Updated by: Petty WALKER 40w IOL Pre E HPI 20 WK OB Details: SPRING BURR is a 24 year old who presents for routine OB visit. OB Visit DOMENICO Calculator Estimated Delivery Date Method Current WG Current Estimate 03/16/25 Ultrasound #1 21w 2d Other Estimates 03/13/25 LMP (Certain) 21w 5d Expected Delivery Route/Plan Labor Preferences- CB/BF classes: [] labor support person: [] labor intervention preferences: [] pain management options preferred: [] cut cord/dad catch: [] : [] PP control planned: [] discussed possible routes of delivery and associated risks: [] special requests: [] Specific Issue/Plans Covid status: [] Flu vaccine: declined Tdap vaccine: [] Rhogam: [] LARC form signed: [] Problem list reviewed and updated with the most current plan of care details and appropriate orders placed. Relevant counseling for the gestational age provided. Continue routine care and follow up unless otherwise noted in visit notes/problem list details Initial Weight: Not Recorded Date -???-???-???-???-?? ?-???-???-???-???-? ??-???-???- EGA Weight BP Urine Prot -???-???-???-???-?? ?-???-???-???-???-? ??-???-???- Glucose FHR FuHt Pres Dilation -???-???-???-???-?? ?-???-???-???-???-? ??-???-???- Effaced St Visit Note 08/04/24 -???-???-???-???-?? ?-???-???-???-???-? ??-???-???- 8w 0d 162 lb 2 oz 123/80 -???-???-???-???-?? ?-???-???-???-???-? ??-???-???- 165 -???-???-???-???-?? ?-???-???-???-???-? ??-???-???- SM- CRL cons with LMP measuring 8w3d SM- CRL cons with LMP measuring 8w 0d 09/01/24 -???-???-???-???-?? ?-???-???-???-???-? ??-???-???- 12w 0d 163 lb 106/67 Negative -???-???-???-???-?? ?-???-???-???-???-? ??-???-???- Negative 157 -???-???-???-???-?? ?-???-???-???-???-? ??-???-???- KW- vb/cramp ing. anatomy US ordered 10/02/24 -???-???-???-???-?? ?-???-???-???-???-? ??-???-???- 16w 3d 164 lb 2 oz 110/72 Negative -???-???-???-???-?? ?-???-???-???-???-? ??-???-???- Negative 150 -???-???-???-???-?? ?-???-???-???-???-? ??-???-???- SM- no vbc r amping 11/05/24 -???-???-???-???-?? ?-???-???-???-???-? ??-???-???- 21 (more content not included)... Normal [facility] Laboratory - Chemistry and C hemistry - challengeon 10-02-2024 Glucose Ql (U) Negative [facility] Laboratory - Urinalysison Protein Ql (U) Negative [facility] Blender Snuff Office Visit Reporton 10-02-2024 Blender Snuff Office Visit Report [facility] [address] [place] [address], [address] [place] [address] OFFICE VISIT Date of Service: 10/02/24 MR#: [id number] Acct: [id number] Name: SPRING BURR Rep #: [id number] 2 : 2000 Provider: Dr. Hina burgos MD Age/Sex: 24/F Location: [facility] [place] Status: Signed Intake Vital Signs 09/01/24 14:10 10/02/24 09:45 10/02/24 09:46 Height 5 ft 8 in 5 ft 8 in 5 ft 8 in Weight: 164 lb 2 oz BMI 24.9 BP 110/72 Intake Visit Reasons: 16 WK OB Nitroglycerin Neutralizer Required: No Is patient in pain?: No Feel stressed/tense/nerv ous/anxious/difficu lty sleeping: not at all Allergies No Known Allergies Allergy (Verified 10/02/24 09:46) Medications ???Medication ???Instructions ???Recorded ???Confirmed ???Type PNV 153-FA 400 mcg-om3 35 mg-dha tab PO 08/01/24 10/02/24 History 25 mg-epa 5 mg-fish oil chew tablet sertraline 50 mg tablet 50 mg PO QDAY 08/01/24 10/02/24 History Last Menstrual Period: 06/06/24 Zika: Zika virus screening: Negative : No Have you fallen in the past year?: No PFSH PFSH Medical History Pre-eclampsia Family History Grandmother Cancer Mets to brain, lung, bone Breast cancer Paternal Social History adopted: No household members: spouse and children housing: house number of children: 1 current occupational status: employed current occupation: [employer] pets and animals: Yes (Avoid litterbox) pets and animals: cat(s) history of recent travel: No sexually active: Yes Smoking Status: Never smoker alcohol intake: current alcohol intake frequency: holidays/special occasions only details: not while substance use type: does not use well-balanced diet: daily or most days caffeine: No eating out: rarely or never during the past year weight has: decreased > 10 lbs what type of physical activity do you participate in: none daniel/denominational: None seatbelt use: always do you feel safe at home: Yes 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 Date Name GA/Weeks Outcome Route Bth Weight Gen Labor Lgth Anesthesia Del Locatn Provider FOB 05/27/22 Radha 40 live - full term Female epidural [facility] Delivery Date: 05/27/22 Last Updated by: Petty Villar 40w IOL Pre E HPI 16 WK OB Details: SPRING BURR is a 24 year old who presents for routine OB visit. OB Visit DOMENICO Calculator Estimated Delivery Date Method Current WG Current Estimate 03/16/25 Ultrasound #1 16w 3d Other Estimates 03/13/25 LMP (Certain) 16w 6d Expected Delivery Route/Plan Labor Preferences- CB/BF classes: [] labor support person: [] labor intervention preferences: [] pain management options preferred: [] cut cord/dad catch: [] : [] PP control planned: [] discussed possible routes of delivery and associated risks: [] special requests: [] Specific Issue/Plans Covid status: [] Flu vaccine: declined Tdap vaccine: [] Rhogam: [] LARC form signed: [] Problem list reviewed and updated with the most current plan of care details and appropriate orders placed. Relevant counseling for the gestational age provided. Continue routine care and follow up unless otherwise noted in visit notes/problem list details Initial Weight: Not Recorded Date -???-???-???-???-?? ?-???-???-???-???-? ??-???-???- EGA Weight BP Urine Prot -???-???-???-???-?? ?-???-???-???-???-? ??-???-???- Glucose FHR FuHt Pres Dilation -???-???-???-???-?? ?-???-???-???-???-? ??-???-???- Effaced St Visit Note 08/04/24 -???-???-???-???-?? ?-???-???-???-???-? ??-???-???- 8w 0d 162 lb 2 oz 123/80 -???-???-???-???-?? ?-???-???-???-???-? ??-???-???- 165 -???-???-???-???-?? ?-???-???-???-???-? ??-???-???- SM- CRL cons with LMP measuring 8w3d SM- CRL cons with LMP measuring 8w 0d 09/01/24 -???-???-???-???-?? ?-???-???-???-???-? ??-???-???- 12w 0d 163 lb 106/67 Negative -???-???-???-???-?? ?-???-???-???-???-? ??-???-???- Negative 157 -???-???-???-???-?? ?-???-???-???-???-? ??-???-???- KW- vb/cramp ing. anatomy US ordered 10/02/24 -???-???-???-???-?? ?-???-???-???-???-? ??-???-???- 16w 3d 164 lb 2 oz 110/72 Negative -???-???-???-???-?? ?-???-???-???-???-? ??-???-???- Negative 150 -???-???-???-???-?? ?-???-???-???-???-? ??-???-???- SM- no vbc r amping ACOG First Trimester First Trimester: Desire for pre (more content not included)... Normal [facility] Laboratory - Chemistry and C hemistry - challengeon 09-01-2024 Glucose Ql (U) Negative [facility] Laboratory - Urinalysison Protein Ql (U) Negative [facility] Blender Snuff Office Visit Reporton 09-01-2024 Blender Snuff Office Visit Report [facility] [address], [address] [place] [address] OFFICE VISIT Date of Service: 09/01/24 MR#: [id number] Acct: [id number] Name: SPRING BURR Rep #: [id number] 1 : 2000 Provider: FAWN Ye ams Age/Sex: 24/F Location: [facility] [place] Status: Signed Intake Vital Signs 06/11/23 05:23 08/04/24 10:28 09/01/24 14:08 09/01/24 14:10 Height 5 ft 8 in 5 ft 8 in 5 ft 8 in 5 ft 8 in Weight: 163 lb BMI 24.7 BP 106/67 Intake Visit Reasons: 13 wk OB Nitroglycerin Neutralizer Required: No Is patient in pain?: No Allergies No Known Allergies Allergy (Verified 09/01/24 14:10) Medications ???Medication ???Instructions ???Recorded ???Confirmed ???Type PNV 153-FA 400 mcg-om3 35 mg-dha tab PO 08/01/24 09/01/24 History 25 mg-epa 5 mg-fish oil chew tablet sertraline 50 mg tablet 50 mg PO QDAY 08/01/24 09/01/24 History Last Menstrual Period: 06/06/24 Zika: Zika virus screening: Negative : No Have you fallen in the past year?: No PFSH PFSH Medical History Pre-eclampsia Family History Grandmother Cancer Mets to brain, lung, bone Breast cancer Paternal Social History adopted: No household members: spouse and children housing: house number of children: 1 current occupational status: employed current occupation: [employer] pets and animals: Yes (Avoid litterbox) pets and animals: cat(s) history of recent travel: No sexually active: Yes Smoking Status: Never smoker alcohol intake: current alcohol intake frequency: holidays/special occasions only details: not while substance use type: does not use well-balanced diet: daily or most days caffeine: No eating out: rarely or never during the past year weight has: decreased > 10 lbs what type of physical activity do you participate in: none daniel/denominational: None seatbelt use: always do you feel safe at home: Yes 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 Date Name GA/Weeks Outcome Route Bth Weight Infant Gen Labor Lgth Anesthesia Del Locatn Provider FOB 05/27/22 Radha 40 live - full term Female epidural [facility] Delivery Date: 05/27/22 Last Updated by: Petty WALKER 40w IOL Pre E HPI 13 wk OB Details: SPRING BURR is a 24 year old who presents for routine OB visit. OB Visit DOMENICO Calculator Estimated Delivery Date Method Current WG Current Estimate 03/16/25 Ultrasound #1 12w 0d Other Estimates 03/13/25 LMP (Certain) 12w 3d Expected Delivery Route/Plan Labor Preferences- CB/BF classes: [] labor support person: [] labor intervention preferences: [] pain management options preferred: [] cut cord/dad catch: [] : [] PP control planned: [] discussed possible routes of delivery and associated risks: [] special requests: [] Specific Issue/Plans Covid status: [] Flu vaccine: [] Tdap vaccine: [] Rhogam: [] LARC form signed: [] Problem list reviewed and updated with the most current plan of care details and appropriate orders placed. Relevant counseling for the gestational age provided. Continue routine care and follow up unless otherwise noted in visit notes/problem list details Initial Weight: Not Recorded Date -???-???-???-???-?? ?-???-???-???-???-? ??-???-???- EGA Weight BP Urine Prot -???-???-???-???-?? ?-???-???-???-???-? ??-???-???- Glucose FHR FuHt Pres Dilation -???-???-???-???-?? ?-???-???-???-???-? ??-???-???- Effaced St Visit Note 08/04/24 -???-???-???-???-?? ?-???-???-???-???-? ??-???-???- 8w 0d 162 lb 2 oz 123/80 -???-???-???-???-?? ?-???-???-???-???-? ??-???-???- 165 -???-???-???-???-?? ?-???-???-???-???-? ??-???-???- SM- CRL cons with LMP measuring 8w3d SM- CRL cons with LMP measuring 8w 0d 09/01/24 -???-???-???-???-?? ?-???-???-???-???-? ??-???-???- 12w 0d 163 lb 106/67 Negative -???-???-???-???-?? ?-???-???-???-???-? ??-???-???- Negative 157 -???-???-???-???-?? ?-???-???-???-???-? ??-???-???- KW- vb/cramp ing. anatomy US ordered ACOG First Trimester First Trimester: Desire for , Alcohol, Tobacco Cessation, Illicit/Recreationa l Drug/Substance Use, Intimate Partner Violence, Barriers to care, Unstable Housing, Communication Barriers, Environmental/Work Hazards, Anticipated Course of Care, Toxoplasmosis Precations, Use of Any medications, Sexual activity, Exercis (more content not included)... Normal [facility] Chlamydia/GC CHITO aptimaon CHLAMY,NUC ACID Negative Normal Negative [facility] Comment on above: Performed By: #### L 7000.1800, M100.2200, L501.0900 ####[facility] [address] [place], [place], [id number] GC BY NUC ACID Negative Normal Negative [facility] Comment on above: Result Comment: Perf ormed at: =G - [facility] [place] [place], [place] [id number] Draw In Hand: Kori Villanueva MD, Phone: [phone] Performed By: #### L 7000.1800, M100.2200, L501.0900 ####[facility] [address] [place], [place], [address] Urine Cultureon 08-05-2024 URC Culture exhibits no growth. Normal [facility] Comment on above: Performed By: #### L 7000.1800, M100.2200, L501.0900 ####[facility] [address] [place], [address] CBC W/Diff, Automatedon 07-18 Absolute Lymph 1.32 X10 3/uL Normal 0.83-4.51 [facility] Comment on above: Performed By: #### L 500.4050, L3890.6300, L3890.6005, L509.8000, L3890.6100, BTS, L100.0100, L509.4005 ####[facility] [address] [place], [address] Absolute Neut 5.0 X10 3/uL Normal 2.0-7.7 [facility] Comment on above: Performed By: #### L 500.4050, L3890.6300, L3890.6005, L509.8000, L3890.6100, BTS, L100.0100, L509.4005 ####[facility] [address] [place], [address] Basophils/100 WBC (Bld) 0.4 % Normal 0-1 [facility] Comment on above: Performed By: #### L 500.4050, L3890.6300, L3890.6005, L509.8000, L3890.6100, BTS, L100.0100, L509.4005 ####[facility] [address] [place], [address] Eosinophils/100 WBC (Bld) 0.6 % Normal 0-5 [facility] Comment on above: Performed By: #### L 500.4050, L3890.6300, L3890.6005, L509.8000, L3890.6100, BTS, L100.0100, L509.4005 ####[facility] [address] [place], [address] Erythrocyte distribution width (RBC) [Ratio] 12.7 % Normal 11.6-14.6 [facility] Comment on above: Performed By: #### L 500.4050, L3890.6300, L3890.6005, L509.8000, L3890.6100, BTS, L100.0100, L509.4005 ####[facility] [address] [place], [address] Hematocrit (Bld) [Volume fraction] 38.9 % Normal 37-47 [facility] Comment on above: Performed By: #### L 500.4050, L3890.6300, L3890.6005, L509.8000, L3890.6100, BTS, L100.0100, L509.4005 ####[facility] [address] [place], [address] Hemoglobin (Bld) [Mass/Vol] 12.9 g/dL Normal 12.0-15.0 [facility] Comment on above: Performed By: #### L 500.4050, L3890.6300, L3890.6005, L509.8000, L3890.6100, BTS, L100.0100, L509.4005 ####[facility] [address] [place], [address] IG% 0.400 Normal 0.0-0.9 [facility] Comment on above: Result Comment: IG% - Immature Granulocytes (promyelocytes, myelocytes and metamyelocytes) > 1% indicates that a LEFT SHIFT is Present. Performed By: #### L 500.4050, L3890.6300, L3890.6005, L509.8000, L3890.6100, BTS, L100.0100, L509.4005 ####[facility] [address] [place], [address] Lymphocytes/100 WBC (Bld) 19.3 % Normal 19-41 [facility] Comment on above: Performed By: #### L 500.4050, L3890.6300, L3890.6005, L509.8000, L3890.6100, BTS, L100.0100, L509.4005 ####[facility] [address] [place], [address] MCH (RBC) [Entitic mass] 29.5 pg Normal 27.0-32.0 [facility] Comment on above: Performed By: #### L 500.4050, L3890.6300, L3890.6005, L509.8000, L3890.6100, BTS, L100.0100, L509.4005 ####[facility] [address] [place], [address] MCHC (RBC) [Mass/Vol] 33.2 g/dL Normal 32-[address] [facility] Comment on above: Performed By: #### L 500.4050, L3890.6300, L3890.6005, L509.8000, L3890.6100, BTS, L100.0100, L509.4005 ####[facility] [address] [place], [address] MCV (RBC) [Entitic vol] 89.0 fL Normal 81-99 [facility] Comment on above: Performed By: #### L 500.4050, L3890.6300, L3890.6005, L509.8000, L3890.6100, BTS, L100.0100, L509.4005 ####[facility] [address] [place], [address] Monocytes/100 WBC (Bld) 5.6 % Normal 0-10 [facility] Comment on above: Performed By: #### L 500.4050, L3890.6300, L3890.6005, L509.8000, L3890.6100, BTS, L100.0100, L509.4005 ####[facility] [address] [place], [address] Neutrophils/100 WBC (Bld) 73.7 % High 47-70 [facility] Comment on above: Performed By: #### L 500.4050, L3890.6300, L3890.6005, L509.8000, L3890.6100, BTS, L100.0100, L509.4005 ####[facility] [address] [place], [address] Nucleated RBC (Bld) [#/Vol] 0 10*3/uL Normal 0-5 [facility] Comment on above: Performed By: #### L 500.4050, L3890.6300, L3890.6005, L509.8000, L3890.6100, BTS, L100.0100, L509.4005 ####[facility] [address] [place], [address] Platelet mean volume (Bld) [Entitic vol] 10.0 fL Normal 6.2-12.0 [facility] Comment on above: Performed By: #### L 500.4050, L3890.6300, L3890.6005, L509.8000, L3890.6100, BTS, L100.0100, L509.4005 ####[facility] [address] [place], [address] Platelets (Bld) [#/Vol] 279 10*3/uL Normal 150-450 [facility] Comment on above: Performed By: #### L 500.4050, L3890.6300, L3890.6005, L509.8000, L3890.6100, BTS, L100.0100, L509.4005 ####[facility] [address] [place], [address] RBC (Bld) [#/Vol] 4.37 10*6/uL Normal 4.2-5.4 [facility] Comment on above: Performed By: #### L 500.4050, L3890.6300, L3890.6005, L509.8000, L3890.6100, BTS, L100.0100, L509.4005 ####[facility] [address] [place], [address] RDW SD 42.0 fl Normal 35.1-43.9 [facility] Comment on above: Performed By: #### L 500.4050, L3890.6300, L3890.6005, L509.8000, L3890.6100, BTS, L100.0100, L509.4005 ####[facility] [address] [place], [address] WBC (Bld) [#/Vol] 6.8 10*3/uL Normal 4.4-11.[address] [facility] Comment on above: Performed By: #### L 500.4050, L3890.6300, L3890.6005, L509.8000, L3890.6100, BTS, L100.0100, L509.4005 ####[facility] [address] [place], [address] Comprehensive Metabolic Prof ilon 08-04-2024 Albumin [Mass/Vol] 4.0 g/dL Normal 3.2-5.[address] [facility] Comment on above: Performed By: #### L 500.4050, L3890.6300, L3890.6005, L509.8000, L3890.6100, BTS, L100.0100, L509.4005 ####[facility] [address] [place], [address] Albumin/Globulin [Mass ratio] 1.1 {ratio} Normal 0.9-2.4 [facility] Comment on above: Performed By: #### L 500.4050, L3890.6300, L3890.6005, L509.8000, L3890.6100, BTS, L100.0100, L509.4005 ####[facility] [address] [place], [address] ALK P 75 U/L Normal 45-117 [facility] Comment on above: Performed By: #### L 500.4050, L3890.6300, L3890.6005, L509.8000, L3890.6100, BTS, L100.0100, L509.4005 ####[facility] [address] [place], [address] ALT [Catalytic activity/Vol] 22 U/L Normal 13-56 [facility] Comment on above: Performed By: #### L 500.4050, L3890.6300, L3890.6005, L509.8000, L3890.6100, BTS, L100.0100, L509.4005 ####[facility] [address] [place], [address] AST [Catalytic activity/Vol] 8 U/L Low 15-37 [facility] Comment on above: Performed By: #### L 500.4050, L3890.6300, L3890.6005, L509.8000, L3890.6100, BTS, L100.0100, L509.4005 ####[facility] [address] [place], [address] Bilirubin [Mass/Vol] 0.40 mg/dL Normal 0.20-1.00 [facility] Comment on above: Result Comment: For patients on eltrombopag therapy, use of Dimension Rowley TBIL is not recommended. Performed By: #### L 500.4050, L3890.6300, L3890.6005, L509.8000, L3890.6100, BTS, L100.0100, L509.4005 ####[facility] [address] [place], [address] BUN/CRE 21.7 RATIO High 10-20 [facility] Comment on above: Performed By: #### L 500.4050, L3890.6300, L3890.6005, L509.8000, L3890.6100, BTS, L100.0100, L509.4005 ####[facility] [address] [place], [address] CA,Total 9.3 mg/dL Normal 8.5-10.1 [facility] Comment on above: Performed By: #### L 500.4050, L3890.6300, L3890.6005, L509.8000, L3890.6100, BTS, L100.0100, L509.4005 ####[facility] [address] [place], [address] Chloride [Moles/Vol] 104 mmol/L Normal 98-107 [facility] Comment on above: Performed By: #### L 500.4050, L3890.6300, L3890.6005, L509.8000, L3890.6100, BTS, L100.0100, L509.4005 ####[facility] [address] [place], [address] CO2 [Moles/Vol] 26.0 mmol/L Normal 21.0-32.0 [facility] Comment on above: Performed By: #### L 500.4050, L3890.6300, L3890.6005, L509.8000, L3890.6100, BTS, L100.0100, L509.4005 ####[facility] [address] [place], [address] Creatinine [Mass/Vol] 0.60 mg/dL Normal 0.55-1.[address] [facility] Comment on above: Result Comment: The validity of the calculated GFR GFRAA in patients over 70 years has not been determined. Clinical correlation is essential. Performed By: #### L 500.4050, L3890.6300, L3890.6005, L509.8000, L3890.6100, BTS, L100.0100, L509.4005 ####[facility] [address] [place], [address] EST GFR - AA 155 mL/min Normal >60 [facility] Comment on above: Result Comment: Afri can [place] GFR Calc Performed By: #### L 500.4050, L3890.6300, L3890.6005, L509.8000, L3890.6100, BTS, L100.0100, L509.4005 ####[facility] [address] [place], [address] GAP 7 Normal 5-15 [facility] Comment on above: Performed By: #### L 500.4050, L3890.6300, L3890.6005, L509.8000, L3890.6100, BTS, L100.0100, L509.4005 ####[facility] [address] [place], [address] GFR/1.73 sq M.predicted among non-blacks MDRD (S/P/Bld) [Vol rate/Area] 128 mL/min/{1.73_m2} Normal >60 [facility] Comment on above: Result Comment: Non- GFR Calc Performed By: #### L 500.4050, L3890.6300, L3890.6005, L509.8000, L3890.6100, BTS, L100.0100, L509.4005 ####[facility] [address] [place], [address] Globulin (S) [Mass/Vol] 3.8 g/dL Normal 2.2-4.2 [facility] Comment on above: Performed By: #### L 500.4050, L3890.6300, L3890.6005, L509.8000, L3890.6100, BTS, L100.0100, L509.4005 ####[facility] [address] [place], [address] Glucose [Mass/Vol] 88 mg/dL Normal 74-[address] [facility] Comment on above: Performed By: #### L 500.4050, L3890.6300, L3890.6005, L509.8000, L3890.6100, BTS, L100.0100, L509.4005 ####[facility] [address] [place], [address] Potassium [Moles/Vol] 3.8 mmol/L Normal 3.5-5.[address] [facility] Comment on above: Performed By: #### L 500.4050, L3890.6300, L3890.6005, L509.8000, L3890.6100, BTS, L100.0100, L509.4005 ####[facility] [address] [place], [address] Sodium [Moles/Vol] 136 mmol/L Normal 136-[address] [facility] Comment on above: Performed By: #### L 500.4050, L3890.6300, L3890.6005, L509.8000, L3890.6100, BTS, L100.0100, L509.4005 ####[facility] [address] [place], [address] T PROT 7.8 g/dL Normal 6.4-8.2 [facility] Comment on above: Performed By: #### L 500.4050, L3890.6300, L3890.6005, L509.8000, L3890.6100, BTS, L100.0100, L509.4005 ####[facility] [address] [place], [address] Urea nitrogen [Mass/Vol] 13 mg/dL Normal 7-18 [facility] Comment on above: Performed By: #### L 500.4050, L3890.6300, L3890.6005, L509.8000, L3890.6100, BTS, L100.0100, L509.4005 ####[facility] [address] [place], [address] HIV - WCHon 08-04-2024 HIV Non-Reactive Normal Nonreactive [facility] Comment on above: Order Comment: Reaso n for Exam: Performed By: #### L 500.4050, L3890.6300, L3890.6005, L509.8000, L3890.6100, BTS, L100.0100, L509.4005 ####[facility] [address] [place], [place], [id number] Hepatitis B Surface Antigeno n 08-04-2024 HEP B Surf Ag Non-Reactive Normal Nonreactive [facility] Comment on above: Order Comment: Reaso n for Exam: Performed By: #### L 500.4050, L3890.6300, L3890.6005, L509.8000, L3890.6100, BTS, L100.0100, L509.4005 ####[facility] [address] [place], [place], [address] Hepatitis C Antibodyon 08-04 Hepatitis C AB Non-Reactive Normal Nonreactive [facility] Comment on above: Order Comment: Reaso n for Exam: Result Comment: Non Reactive: < 0.8 Equivocal: >/= 0.8 to < 1.0 Reactive: >/= 1.0 The CDC requires that a reactive/equivocal HCV antibody result be sent out for confirmation. HCV Quant by PCR testing. Performed By: #### L 500.4050, L3890.6300, L3890.6005, L509.8000, L3890.6100, BTS, L100.0100, L509.4005 ####[facility] [address] [place], [place], [id number]) L509.8000on 08-04-2024 Syphilis Abs Non-Reactive Normal [facility] Comment on above: Order Comment: Reaso n for Exam: Performed By: #### L 500.4050, L3890.6300, L3890.6005, L509.8000, L3890.6100, BTS, L100.0100, L509.4005 ####[facility] [address] [place], [address] Blender Snuff Office Visit Reporton 08-04-2024 Blender Snuff Office Visit Report [facility] [address] [place], [address] [place] [address] OFFICE VISIT Date of Service: 08/04/24 MR#: [id number] Acct: [id number] Name: SPRING BURR Rep #: [id number] 1 : 2000 Provider: Dr. Hina burgos MD Age/Sex: 24/F Location: [facility] [place] Status: Signed Intake Vital Signs 06/11/23 05:23 08/04/24 10:25 08/04/24 10:28 Height 5 ft 8 in 5 ft 8 in 5 ft 8 in Weight: 162 lb 2 oz BMI 24.6 BP 123/80 H Intake Visit Reasons: NOB LMP 06/06 Nitroglycerin Neutralizer Required: No Is patient in pain?: No Feel stressed/tense/nerv ous/anxious/difficu lty sleeping: not at all Allergies No Known Allergies Allergy (Verified 08/04/24 10:27) Medications ???Medication ???Instructions ???Recorded ???Confirmed ???Type PNV 153-FA 400 mcg-om3 35 mg-dha tab PO 08/01/24 History 25 mg-epa 5 mg-fish oil chew tablet sertraline 50 mg tablet 50 mg PO QDAY 08/01/24 History Last Menstrual Period: 06/06/24 Zika: Zika virus screening: Negative : No Have you fallen in the past year?: No PFSH PFSH Medical History Pre-eclampsia Family History Grandmother Cancer Mets to brain, lung, bone Breast cancer Paternal Social History adopted: No household members: spouse and children housing: house number of children: 1 service: No current occupational status: employed current occupation: [employer] pets and animals: Yes (Avoid litterbox) pets and animals: cat(s) history of recent travel: No sexually active: Yes Smoking Status: Never smoker alcohol intake: current alcohol intake frequency: holidays/special occasions only details: not while substance use type: does not use well-balanced diet: daily or most days caffeine: No eating out: rarely or never during the past year weight has: decreased > 10 lbs what type of physical activity do you participate in: none daniel/denominational: None seatbelt use: always do you feel safe at home: Yes 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 Date Name GA/Weeks Outcome Route Bth Weight Gen Labor Lgth Anesthesia Del Locatn Provider FOB 05/27/22 Radha 40 live - full term Female epidural [facility] Antonio Delivery Date: 05/27/22 Last Updated by: Petty Villar SM 40w IOL Pre E HPI NOB LMP 06/06 Details: SPRING BURR is a 24 year old who presents for New OB visit. OB Visit DOMENICO Calculator Estimated Delivery Date Method Current WG Current Estimate 03/16/25 Ultrasound #1 8w 0d Other Estimates 03/13/25 LMP (Certain) 8w 3d Comments: HIV: Urine Culture: Sequential Screen: NIPT Screen: Estimated Due Date: 03/13/25 Expected Delivery Route/Plan Labor Preferences- CB/BF classes: [] labor support person: [] labor intervention preferences: [] pain management options preferred: [] cut cord/dad catch: [] : [] PP control planned: [] discussed possible routes of delivery and associated risks: [] special requests: [] Specific Issue/Plans Covid status: [] Flu vaccine: [] Tdap vaccine: [] Rhogam: [] LARC form signed: [] Problem list reviewed and updated with the most current plan of care details and appropriate orders placed. Relevant counseling for the gestational age provided. Continue routine care and follow up unless otherwise noted in visit notes/problem list details Initial Weight: Not Recorded Date -???-???-???-???-?? ?-???-???-???-???-? ??-???-???- EGA Weight BP Urine Prot -???-???-???-???-?? ?-???-???-???-???-? ??-???-???- Glucose FHR FuHt Pres Dilation -???-???-???-???-?? ?-???-???-???-???-? ??-???-???- Effaced St Visit Note 08/04/24 -???-???-???-???-?? ?-???-???-???-???-? ??-???-???- 8w 0d 162 lb 2 oz 123/80 -???-???-???-???-?? ?-???-???-???-???-? ??-???-???- 165 -???-???-???-???-?? ?-???-???-???-???-? ??-???-???- SM- CRL cons with LMP measuring 8w3d SM- CRL cons with LMP measuring 8w 0d Menstrual History Last Menstrual Period: 06/06/24 Reported LMP: definite Normal amount/duration: No (a little umbrella tipper hand than normal) Frequency in days: 28 On hormonal BC at conception: No hCG+: 07/05/24 Antepartum Record Genetic Screening: Congenital Heart Defect: Other, Neural Tube Defect: Other, Hemoglobinopathy Or Carrier: Other, Cystic Fibrosis: Other, Chromosome Abnormality: Other, Mark-Sachs: Other, Hemophilia: Other, Intellect (more content not included)... Normal [facility] Protein+Creatinine Ratio,Uri neon 08-04-2024 PROT:CRE RATIO 117 mg/g CRE Normal 0-200 [facility] Comment on above: Performed By: #### L 7000.1800, M100.2200, L501.0900 #### [facility] [address] [place], [address] Protein (U) [Mass/Vol] 14.0 mg/dL High <11.9 [facility] Comment on above: Performed By: #### L 7000.1800, M100.2200, L501.0900 #### [facility] [address] [place], [address] UR CREAT 120.00 mg/dL Normal NO RANGE EST. [facility] Comment on above: Performed By: #### L 7000.1800, M100.2200, L501.0900 #### [facility] [address] [place], [address] Rubella IgGon 08-04-2024 Rubella IgG Reactive Normal Nonreactive [facility] Comment on above: Order Comment: Reaso n for Exam: Result Comment: Anti body Results Interpretation of Immune Status Non Reactive Presumed Non-Immune Equivocal Equivocal Reactive Presumed Immune Performed By: #### L 500.4050, L3890.6300, L3890.6005, L509.8000, L3890.6100, BTS, L100.0100, L509.4005 ####[facility] [address] [place], [address] Type AND Screenon 08-04-2024 Ab SCREEN GEL Negative Normal [facility] Comment on above: Order Comment: PN Performed By: #### L 500.4050, L3890.6300, L3890.6005, L509.8000, L3890.6100, BTS, L100.0100, L509.4005 ####[facility] [address] [place], [address] ABO and Rh group Nom (Bld) Blood group O Rh(D) positive Normal [facility] Comment on above: Order Comment: PN Performed By: #### L 500.4050, L3890.6300, L3890.6005, L509.8000, L3890.6100, BTS, L100.0100, L509.4005 ####[facility] [address] [place], [address] Absolute lymphocyte counton 05-26-2022 Lymphocytes Auto (Unsp spec) [#/Vol] 1.71 10*3/uL 0.83-4.51 [facility] Work Phone: [phone] Basophil percentageon 2021 Basophils/100 WBC (Bld) 0.2 % 0-1 W [facility] Work Phone: [phone] Eosinophils/100 WBC (Bld) 0.8 % 0-5 [facility] Work Phone: [phone] Neutrophils (Bld) [#/Vol] 8.4 10*3/uL 2.0-7.7 [facility] Work Phone: [phone] Neutrophils/100 WBC (Bld) 76.8 % 47-70 [facility] Work Phone: [phone] WBC (Bld) [#/Vol] 10.9 10*3/uL 4.4-11.0 [facility] Work Phone: Blood erythrocytes count (nu mber/volume)on 05-26-2022 RBC (Bld) [#/Vol] 4.27 10*6/uL 4.2-5.4 [facility] Work Phone: [phone] Blood hemoglobin measurement (mass/volume)on 05-26-2022 Hemoglobin (Bld) [Mass/Vol] 10.8 g/dL 12.0-15.0 [facility] Work Phone: [phone] Blood lymphocytes/100 leukoc yteson 05-26-2022 Lymphocytes/100 WBC (Bld) 15.7 % 19-41 [facility] Work Phone: [phone] Blood monocytes/100 leukocyt eson 05-26-2022 Monocytes/100 WBC (Bld) 5.9 % 0-10 W [facility] Work Phone: [phone] Blood platelet mean volumeon 05-26-2022 Platelet mean volume (Bld) [Entitic vol] 10.2 fL 6.2-12.0 [facility] Work Phone: Determination of erythrocyte mean corpuscular volume (MCV)on 05-26-2022 MCV (RBC) [Entitic vol] 81.3 fL 81-99 W [facility] Work Phone: Hematocrit Auto (Bld) [Volum e fraction]on 05-26-2022 Hematocrit (Bld) [Volume fraction] 34.7 % 37-47 [facility] Work Phone: Laboratory - Chemistry and C hemistry - challengeon 05-26-2022 ALT [Catalytic activity/Vol] 20 U/L 13-56 [facility] Work Phone: Laboratory - Hematology and Cell countson 05-26-2022 Erythrocyte distribution width (RBC) [Entitic vol] 44.1 fL 35.1-43.9 [facility] Work Phone: Erythrocyte distribution width (RBC) [Ratio] 15.3 % 11.6-14.6 [facility] Work Phone: Immature granulocytes/100 WBC (Bld) 0.600 % 0.0-0.9 [facility] Work Phone: Comment on above: IG% - Immature Granu locytes (promyelocytes, myelocytes and metamyelocytes) > 1% indicates that a LEFT SHIFT is Present. MCH (RBC) [Entitic mass] 25.3 pg 27.0-32.0 [facility] Work Phone: Nucleated RBC/100 WBC (Bld) [Ratio] 0 % 0-5 [facility] Work Phone: MCHC Auto (RBC) [Mass/Vol]on 05-26-2022 MCHC (RBC) [Mass/Vol] 31.1 g/dL 32-[address] [facility] Work Phone: No Panel Informationon 05-26 Estimated Creatinine Clearance Calc 109.74 ml/min [facility] Work Phone: Estimated GFR (MDRD) Amer 124 mL/min >60 [facility] Work Phone: Comment on above: GFR Calc Estimated GFR (MDRD) Non-Af Amer 103 mL/min >60 [facility] Work Phone: Comment on above: Non- GFR Calc Platelets bldon 05-26-2022 Platelets (Bld) [#/Vol] 328 10*3/uL 150-450 [facility] Work Phone: Serum or plasma creatinine m easurement (mass/volume)on 05-26-2022 Creatinine [Mass/Vol] 0.74 mg/dL 0.55-1.[address] [facility] Work Phone: Comment on above: The validity of the calculated GFR & GFRAA in patients over 70 years has not been determined. Clinical correlation is essential. Serum or plasma uric acid me asurement (mass/volume)on 05-26-2022 Urate [Mass/Vol] 4.8 mg/dL 2.6-6.0 [facility] Work Phone: Comment on above: The drugs N-Acetylcy steine and Metamizole may falsely depress this assay. Thin prep Papanicolaou smear with manual screeningon 05-26-2022 Thin prep Papanicolaou smear with manual screening 26 U/L 15-37 [facility] Work Phone: Comment on above: Slight Hemolysis, Re sult may be falsely increased. Urine creatinine measurement (mass/volume)on 05-26-2022 Creatinine (U) [Mass/Vol] 124.00 mg/dL NO RANGE EST. [facility] Work Phone: Urine protein measurement (m ass/volume)on 05-26-2022 Protein (U) [Mass/Vol] 56.4 mg/dL 0.0-11.8 [facility] Work Phone: Urine protein/creatinine mas s ratioon 05-26-2022 Protein/Creatinine (U) [Mass ratio] 455 mg/g CRE 0-200 [facility] Work Phone: Laboratory - Chemistry and C hemistry - challengeon 05-23-2022 Glucose Ql (U) Negative [facility] Work Phone: Laboratory - Urinalysison Protein Ql (U) Negative [facility] Work Phone: Laboratory - Chemistry and C hemistry - challengeon 05-17-2022 Glucose Ql (U) Negative [facility] Work Phone: Laboratory - Urinalysison Protein Ql (U) Trace [facility] Work Phone: Laboratory - Chemistry and C hemistry - challengeon 05-08-2022 Glucose Ql (U) Negative [facility] Work Phone: Laboratory - Urinalysison Protein Ql (U) Negative [facility] Work Phone: Laboratory - Chemistry and C hemistry - challengeon 04-24-2022 Glucose Ql (U) Negative [facility] Work Phone: Laboratory - Urinalysison Protein Ql (U) Negative [facility] Work Phone: Laboratory - Chemistry and C hemistry - challengeon 04-12-2022 Glucose Ql (U) Negative [facility] Work Phone: Laboratory - Urinalysison Protein Ql (U) Negative [facility] Work Phone: Laboratory - Chemistry and C hemistry - challengeon 03-27-2022 Glucose Ql (U) Negative [facility] Work Phone: Laboratory - Urinalysison Protein Ql (U) Negative [facility] Work Phone: Laboratory - Chemistry and C hemistry - challengeon 03-15-2022 Glucose Ql (U) Negative [facility] Work Phone: Laboratory - Urinalysison Protein Ql (U) Negative [facility] Work Phone: Quantitative serum or plasma 3 hour gestational glucose tolerance panelon 03-03-2022 Glucose tolerance 3 hours gestational panel See comment [facility] Work Phone: [phone] Comment on above: FASTING 91 Col: 02/15 04/07 0700GLUCOSE TOLERANCE TEST FOR Reference Interval GESTATIONAL DIABETES Fasting <105 mg/dL 1 hour <190 mg/dl 2 hour <165 mg/dl 3 hour <145 mg/dl 1 HR GLU 153 Col: 03/03/22 0805 2 HR GLU 131 Col: 03/03/22 0905 3 HR GLU 115 Col: 03/03/22 1006 Absolute lymphocyte counton 02-27-2022 Lymphocytes Auto (Unsp spec) [#/Vol] 1.31 10*3/uL 0.83-4.51 [facility] Work Phone: Basophil percentageon 2021 Basophils/100 WBC (Bld) 0.1 % 0-1 W [facility] Work Phone: Eosinophils/100 WBC (Bld) 1.1 % 0-5 [facility] Work Phone: Neutrophils (Bld) [#/Vol] 6.2 10*3/uL 2.0-7.7 [facility] Work Phone: Neutrophils/100 WBC (Bld) 76.9 % 47-70 [facility] Work Phone: WBC (Bld) [#/Vol] 8.1 10*3/uL 4.4-11.[address] [facility] Work Phone: Blood erythrocytes count (nu mber/volume)on 02-27-2022 RBC (Bld) [#/Vol] 4.00 10*6/uL 4.2-5.4 [facility] Work Phone: Blood hemoglobin measurement (mass/volume)on 02-27-2022 Hemoglobin (Bld) [Mass/Vol] 11.3 g/dL 12.0-15.0 [facility] Work Phone: Blood lymphocytes/100 leukoc yteson 02-27-2022 Lymphocytes/100 WBC (Bld) 16.2 % 19-41 [facility] Work Phone: Blood monocytes/100 leukocyt eson 02-27-2022 Monocytes/100 WBC (Bld) 5.0 % 0-10 W [facility] Work Phone: Blood platelet mean volumeon 02-27-2022 Platelet mean volume (Bld) [Entitic vol] 9.2 fL 6.2-12.0 [facility] Work Phone: Determination of erythrocyte mean corpuscular volume (MCV)on 02-27-2022 MCV (RBC) [Entitic vol] 86.0 fL 81-99 [facility] Work Phone: Gestational diabetes screen 1-hour screen with 50g oral glucose loadon 02-27-2022 Glucose 1 Hr post 50 g glucose PO [Mass/Vol] 139 mg/dL 70-140 [facility] Work Phone: Hematocrit Auto (Bld) [Volum e fraction]on 02-27-2022 Hematocrit (Bld) [Volume fraction] 34.4 % 37-47 [facility] Work Phone: Laboratory - Chemistry and C hemistry - challengeon 02-27-2022 Glucose Ql (U) Negative [facility] Work Phone: Laboratory - Hematology and Cell countson 02-27-2022 Erythrocyte distribution width (RBC) [Entitic vol] 40.8 fL 35.1-43.9 [facility] Work Phone: Erythrocyte distribution width (RBC) [Ratio] 13.1 % 11.6-14.6 [facility] Work Phone: Immature granulocytes/100 WBC (Bld) 0.700 % 0.0-0.9 [facility] Work Phone: Comment on above: IG% - Immature Granu locytes (promyelocytes, myelocytes and metamyelocytes) > 1% indicates that a LEFT SHIFT is Present. MCH (RBC) [Entitic mass] 28.3 pg 27.0-32.0 [facility] Work Phone: Nucleated RBC/100 WBC (Bld) [Ratio] 0 % 0-5 [facility] Work Phone: Laboratory - Urinalysison Protein Ql (U) Negative [facility] Work Phone: MCHC Auto (RBC) [Mass/Vol]on 02-27-2022 MCHC (RBC) [Mass/Vol] 32.8 g/dL 32-[address] [facility] Work Phone: Platelets bldon 02-27-2022 Platelets (Bld) [#/Vol] 303 10*3/uL [id number] [facility] Work Phone: Laboratory - Chemistry and C hemistry - challengeon 01-11-2022 Glucose Ql (U) Negative [facility] Work Phone: Laboratory - Urinalysison Protein Ql (U) Negative [facility] Work Phone: Laboratory - Chemistry and C hemistry - challengeon 12-12-2021 Glucose Ql (U) Negative [facility] Work Phone: Laboratory - Urinalysison Protein Ql (U) Negative [facility] Work Phone: Laboratory - Chemistry and C hemistry - challengeon 11-10-2021 Glucose Ql (U) Negative [facility] Work Phone: Laboratory - Urinalysison Protein Ql (U) Negative [facility] Work Phone: Grp A Strp rRNA GnPrbe,Throa ton 03-26-2018 Group A Strep rRNA Detection Not Detected Normal NODT [facility] No Panel Information Group B Streptococcus Culture Group B Beta Streptococcus is not isolated. [facility] Work Phone: Vital Signs Date Time Vital Sign Value Performing Clinician Faci lity 02-24-2025 08:10-0400 Body height 172.72 cm No Primary Care Physician [facility] 02-24-2025 08:10-0400 Body mass index (BMI) [Ratio] 30.9 kg/m2 No Primary Care Physician [facility] 02-24-2025 08:10-0400 Body weight 92.19 kg No Primary Care Physician [facility] 02-24-2025 08:10-0400 Diastolic blood pressure 70 mm[Hg] No Primary Care Physician [facility] 02-24-2025 08:10-0400 Systolic blood pressure 108 mm[Hg] No Primary Care Physician [facility] 02-16-2025 13:46-0400 Body height 172.72 cm No Primary Care Physician [facility] 02-16-2025 13:46-0400 Body mass index (BMI) [Ratio] 30.7 kg/m2 No Primary Care Physician [facility] 02-16-2025 13:46-0400 Body weight 91.73 kg No Primary Care Physician [facility] 02-16-2025 13:46-0400 Diastolic blood pressure 80 mm[Hg] No Primary Care Physician [facility] 02-16-2025 13:46-0400 Systolic blood pressure 118 mm[Hg] No Primary Care Physician [facility] 02-12-2025 11:13-0400 Body height 172.72 cm No Primary Care Physician [facility] 02-12-2025 11:13-0400 Body mass index (BMI) [Ratio] 30.4 kg/m2 No Primary Care Physician [facility] 02-12-2025 11:13-0400 Body weight 90.94 kg No Primary Care Physician [facility] 02-12-2025 11:13-0400 Diastolic blood pressure 80 mm[Hg] No Primary Care Physician [facility] 02-12-2025 11:13-0400 Systolic blood pressure 119 mm[Hg] No Primary Care Physician [facility] 02-11-2025 09:32-0400 Body height 172.72 cm No Primary Care Physician [facility] 02-11-2025 09:31-0400 Body mass index (BMI) [Ratio] 30.6 kg/m2 No Primary Care Physician [facility] 02-11-2025 09:31-0400 Body weight 91.34 kg No Primary Care Physician [facility] 02-11-2025 09:31-0400 Diastolic blood pressure 78 mm[Hg] No Primary Care Physician [facility] 02-11-2025 09:31-0400 Systolic blood pressure 113 mm[Hg] No Primary Care Physician [facility] 01-26-2025 09:24-0400 Body mass index (BMI) [Ratio] 29.7 kg/m2 No Primary Care Physician [facility] 01-26-2025 09:24-0400 Body weight 88.9 kg No Primary Care Physician [facility] 01-26-2025 09:24-0400 Diastolic blood pressure 75 mm[Hg] No Primary Care Physician [facility] 01-26-2025 09:24-0400 Systolic blood pressure 111 mm[Hg] No Primary Care Physician [facility] 01-14-2025 09:57-0400 Body mass index (BMI) [Ratio] 29.7 kg/m2 No Primary Care Physician [facility] 01-14-2025 09:57-0400 Body weight 88.56 kg No Primary Care Physician [facility] 01-14-2025 09:57-0400 Diastolic blood pressure 78 mm[Hg] No Primary Care Physician [facility] 01-14-2025 09:57-0400 Systolic blood pressure 110 mm[Hg] No Primary Care Physician [facility] 01-02-2025 13:13-0400 Body mass index (BMI) [Ratio] 28.8 kg/m2 No Primary Care Physician [facility] 01-02-2025 13:13-0400 Body weight 85.84 kg No Primary Care Physician [facility] 01-02-2025 13:13-0400 Diastolic blood pressure 77 mm[Hg] No Primary Care Physician [facility] 01-02-2025 13:13-0400 Systolic blood pressure 124 mm[Hg] No Primary Care Physician [facility] 12-05-2024 10:33-0400 Body height 172.72 cm No Primary Care Physician [facility] 12-05-2024 10:33-0400 Body mass index (BMI) [Ratio] 27.6 kg/m2 No Primary Care Physician [facility] 12-05-2024 10:33-0400 Body weight 82.27 kg No Primary Care Physician [facility] 12-05-2024 10:33-0400 Diastolic blood pressure 71 mm[Hg] No Primary Care Physician [facility] 12-05-2024 10:33-0400 Systolic blood pressure 106 mm[Hg] No Primary Care Physician [facility] 11-05-2024 09:06-0500 Body mass index (BMI) [Ratio] 26.4 kg/m2 No Primary Care Physician [facility] 11-05-2024 09:06-0500 Body weight 78.98 kg No Primary Care Physician [facility] 11-05-2024 09:06-0500 Diastolic blood pressure 65 mm[Hg] No Primary Care Physician [facility] 11-05-2024 09:06-0500 Systolic blood pressure 104 mm[Hg] No Primary Care Physician [facility] 10-02-2024 09:45-0500 Body mass index (BMI) [Ratio] 24.9 kg/m2 No Primary Care Physician [facility] 10-02-2024 09:45-0500 Body weight 74.44 kg No Primary Care Physician [facility] 10-02-2024 09:45-0500 Diastolic blood pressure 72 mm[Hg] No Primary Care Physician [facility] 10-02-2024 09:45-0500 Systolic blood pressure 110 mm[Hg] No Primary Care Physician [facility] 09-01-2024 14:08-0500 Body mass index (BMI) [Ratio] 24.7 kg/m2 No Primary Care Physician [facility] 09-01-2024 14:08-0500 Body weight 73.93 kg No Primary Care Physician [facility] 09-01-2024 14:08-0500 Diastolic blood pressure 67 mm[Hg] No Primary Care Physician [facility] 09-01-2024 14:08-0500 Systolic blood pressure 106 mm[Hg] No Primary Care Physician [facility] 05-29-2022 08:28-0400 Body temperature 97.3 [degF] No Primary Care Physician [facility] Work Phone: 05-29-2022 08:28-0400 Diastolic blood pressure 72 mm[Hg] No Primary Care Physician [facility] Work Phone: 05-29-2022 08:28-0400 Heart rate 87 /min No Primary Care Physician [facility] Work Phone: 05-29-2022 08:28-0400 Respiratory rate 16 /min No Primary Care Physician [facility] Work Phone: 05-29-2022 08:28-0400 SaO2% (BldA) [Mass fraction] 98 % No Primary Care Physician [facility] Work Phone: 05-29-2022 08:28-0400 Systolic blood pressure 124 mm[Hg] No Primary Care Physician [facility] Work Phone: 05-26-2022 02:06-0400 Body height 167.64 cm No Primary Care Physician [facility] Work Phone: 05-26-2022 02:06-0400 Body mass index (BMI) [Ratio] 38.4 kg/m2 No Primary Care Physician [facility] Work Phone: 05-26-2022 02:06-0400 Body weight 107.95 kg No Primary Care Physician [facility] Work Phone: 05-23-2022 16:05-0400 Body mass index (BMI) [Ratio] 38.9 kg/m2 No Primary Care Physician [facility] Work Phone: 05-23-2022 16:05-0400 Body weight 109.37 kg No Primary Care Physician [facility] Work Phone: 05-23-2022 16:05-0400 Diastolic blood pressure 82 mm[Hg] No Primary Care Physician [facility] Work Phone: 05-23-2022 16:05-0400 Systolic blood pressure 138 mm[Hg] No Primary Care Physician [facility] Work Phone: 05-17-2022 16:15-0400 Body mass index (BMI) [Ratio] 38.8 kg/m2 No Primary Care Physician [facility] Work Phone: 05-17-2022 16:15-0400 Body weight 109.08 kg No Primary Care Physician [facility] Work Phone: 05-17-2022 16:15-0400 Diastolic blood pressure 86 mm[Hg] No Primary Care Physician [facility] Work Phone: 05-17-2022 16:15-0400 Systolic blood pressure 130 mm[Hg] No Primary Care Physician [facility] Work Phone: 05-08-2022 16:05-0400 Body mass index (BMI) [Ratio] 38 kg/m2 No Primary Care Physician [facility] Work Phone: 05-08-2022 16:05-0400 Body weight 107.04 kg No Primary Care Physician [facility] Work Phone: 05-08-2022 16:05-0400 Diastolic blood pressure 86 mm[Hg] No Primary Care Physician [facility] Work Phone: 05-08-2022 16:05-0400 Systolic blood pressure 132 mm[Hg] No Primary Care Physician [facility] Work Phone: 04-24-2022 16:03-0400 Body height 167.64 cm No Primary Care Physician [facility] Work Phone: 04-24-2022 15:58-0400 Body mass index (BMI) [Ratio] 37.8 kg/m2 No Primary Care Physician [facility] Work Phone: 04-24-2022 15:58-0400 Body weight 106.19 kg No Primary Care Physician [facility] Work Phone: 04-24-2022 15:58-0400 Diastolic blood pressure 84 mm[Hg] No Primary Care Physician [facility] Work Phone: 04-24-2022 15:58-0400 Systolic blood pressure 131 mm[Hg] No Primary Care Physician [facility] Work Phone: 04-12-2022 16:09-0400 Diastolic blood pressure 72 mm[Hg] No Primary Care Physician [facility] Work Phone: 04-12-2022 16:09-0400 Systolic blood pressure 118 mm[Hg] No Primary Care Physician [facility] Work Phone: 04-12-2022 15:55-0400 Body mass index (BMI) [Ratio] 36.8 kg/m2 No Primary Care Physician [facility] Work Phone: 04-12-2022 15:55-0400 Body weight 103.41 kg No Primary Care Physician [facility] Work Phone: 03-27-2022 15:50-0400 Body mass index (BMI) [Ratio] 35.8 kg/m2 No Primary Care Physician [facility] Work Phone: 03-27-2022 15:50-0400 Body weight 100.75 kg No Primary Care Physician [facility] Work Phone: 03-27-2022 15:50-0400 Diastolic blood pressure 74 mm[Hg] No Primary Care Physician [facility] Work Phone: 03-27-2022 15:50-0400 Systolic blood pressure 117 mm[Hg] No Primary Care Physician [facility] Work Phone: 03-15-2022 16:11-0400 Body mass index (BMI) [Ratio] 35.2 kg/m2 No Primary Care Physician [facility] Work Phone: 03-15-2022 16:11-0400 Body weight 98.99 kg No Primary Care Physician [facility] Work Phone: 03-15-2022 16:11-0400 Diastolic blood pressure 70 mm[Hg] No Primary Care Physician [facility] Work Phone: 03-15-2022 16:11-0400 Systolic blood pressure 116 mm[Hg] No Primary Care Physician [facility] Work Phone: 02-27-2022 10:48-0400 Body height 167.64 cm No Primary Care Physician [facility] Work Phone: 02-27-2022 10:48-0400 Body mass index (BMI) [Ratio] 34.6 kg/m2 No Primary Care Physician [facility] Work Phone: 02-27-2022 10:48-0400 Body weight 97.29 kg No Primary Care Physician [facility] Work Phone: 02-27-2022 10:48-0400 Diastolic blood pressure 70 mm[Hg] No Primary Care Physician [facility] Work Phone: 02-27-2022 10:48-0400 Systolic blood pressure 118 mm[Hg] No Primary Care Physician [facility] Work Phone: 02-06-2022 16:00-0400 Body mass index (BMI) [Ratio] 33.2 kg/m2 No Primary Care Physician [facility] Work Phone: 02-06-2022 16:00-0400 Body weight 93.44 kg No Primary Care Physician [facility] Work Phone: 02-06-2022 16:00-0400 Diastolic blood pressure 84 mm[Hg] No Primary Care Physician [facility] Work Phone: 02-06-2022 16:00-0400 Systolic blood pressure 132 mm[Hg] No Primary Care Physician [facility] Work Phone: 01-11-2022 15:42-0400 Body mass index (BMI) [Ratio] 31.9 kg/m2 No Primary Care Physician [facility] Work Phone: 01-11-2022 15:42-0400 Body weight 89.81 kg No Primary Care Physician [facility] Work Phone: 01-11-2022 15:42-0400 Diastolic blood pressure 76 mm[Hg] No Primary Care Physician [facility] Work Phone: 01-11-2022 15:42-0400 Systolic blood pressure 124 mm[Hg] No Primary Care Physician [facility] Work Phone: 12-12-2021 15:48-0400 Body mass index (BMI) [Ratio] 30.2 kg/m2 No Primary Care Physician [facility] Work Phone: 12-12-2021 15:48-0400 Body weight 84.82 kg No Primary Care Physician [facility] Work Phone: 12-12-2021 15:48-0400 Diastolic blood pressure 84 mm[Hg] No Primary Care Physician [facility] Work Phone: 12-12-2021 15:48-0400 Systolic blood pressure 132 mm[Hg] No Primary Care Physician [facility] Work Phone: 11-10-2021 09:32-0500 Body mass index (BMI) [Ratio] 29.7 kg/m2 No Primary Care Physician [facility] Work Phone: 11-10-2021 09:32-0500 Body weight 83.46 kg No Primary Care Physician [facility] Work Phone: 11-10-2021 09:32-0500 Diastolic blood pressure 88 mm[Hg] No Primary Care Physician [facility] Work Phone: 11-10-2021 09:32-0500 Systolic blood pressure 130 mm[Hg] No Primary Care Physician [facility] Work Phone: Encounters Encounter Date Encounter Type Care Provider Facility Start: 02-24-2025 End: 02-24-2025 Patient encounter procedure Thelma RODRÍGUEZ -[facility] Work Phone: Start: 02-24-2025 End: 02-24-2025 ambulatory No Primary Care Physician [facility] Work Phone: Start: 02-16-2025 End: 02-16-2025 ambulatory No Primary Care Physician [facility] Work Phone: Start: 02-16-2025 End: 02-16-2025 Patient encounter procedure Zena Hernandez [facility] -[facility] Work Phone: Start: 02-16-2025 End: 02-16-2025 Patient encounter procedure Zena Hernandez CNM -[facility] Work Phone: Start: 02-16-2025 End: 02-16-2025 ambulatory No Primary Care Physician [facility] Work Phone: Start: 02-16-2025 End: 02-16-2025 ambulatory No Primary Care Physician Facility:[facility] Start: 02-12-2025 End: 02-12-2025 ambulatory No Primary Care Physician [facility] Work Phone: Start: 02-12-2025 End: 02-12-2025 Patient encounter procedure Zena WEST -[facility] Work Phone: Start: 02-12-2025 End: 02-12-2025 Patient encounter procedure Zena WEST -[facility] Work Phone: Start: 02-12-2025 End: 02-12-2025 ambulatory No Primary Care Physician [facility] Work Phone: Start: 02-11-2025 End: 02-11-[address] Cristina Lockett DO -[facility] Work Phone: Start: 02-11-2025 End: 02-12-2025 ambulatory No Primary Care Physician [facility] Work Phone: Start: 01-26-2025 End: 01-26-2025 Patient encounter procedure Zena WEST -[facility] Work Phone: Start: 01-26-2025 End: 01-26-2025 ambulatory No Primary Care Physician Facility:[facility] Start: 01-14-2025 End: 01-14-2025 Patient encounter procedure Thelma RODRÍGUEZ -[facility] Work Phone: Start: 01-14-2025 End: 01-14-2025 ambulatory No Primary Care Physician Facility:[facility] Start: 01-02-2025 End: 01-02-2025 Patient encounter procedure Zena WEST -[facility] Work Phone: Start: 01-02-2025 End: 01-02-2025 ambulatory No Primary Care Physician Facility:[facility] Start: 01-02-2025 End: 01-02-2025 ambulatory No Primary Care Physician Facility:[facility] Start: 12-05-2024 End: 12-05-2024 Patient encounter procedure Zena WEST -[facility] Work Phone: Start: 12-05-2024 End: 12-05-2024 ambulatory No Primary Care Physician [facility] Work Phone: Start: 12-05-2024 End: 12-05-2024 ambulatory No Primary Care Physician Facility:[facility] Start: 11-05-2024 End: 11-05-2024 ambulatory No Primary Care Physician Facility:[facility] Start: 11-05-2024 End: 11-05-2024 Patient encounter procedure Zena Hernandez [facility] -[facility] Work Phone: Start: 10-23-2024 End: 10-23-2024 ambulatory FAUSTO Neumann [facility] Start: 10-02-2024 End: 10-02-[address] Hina Elliott MD -[facility] Work Phone: Start: 10-02-2024 End: 10-02-2024 ambulatory No Primary Care Physician Facility:[facility] Start: 09-01-2024 End: 09-01-2024 Patient encounter procedure Zena Hernandez [facility] -[facility] Work Phone: Start: 09-01-2024 End: 09-01-2024 ambulatory No Primary Care Physician Facility:[facility] Start: 08-04-2024 End: 08-04-2024 ambulatory No Primary Care Physician Facility:[facility] Start: 08-04-2024 End: 08-04-2024 ambulatory No Primary Care Physician Facility:[facility] Start: 05-28-2022 Non-patient / Non-visit No Primary Care Physician [facility] Start: 05-27-2022 Non-patient / Non-visit No Primary Care Physician [facility] Start: 05-26-2022 Non-patient / Non-visit No Primary Care Physician [facility] Start: 05-26-2022 End: 05-29-2022 Evaluation and management of inpatient No Primary Care Physician [facility] Start: 05-23-2022 End: 05-23-2022 Patient encounter procedure No Primary Care Physician [facility] Start: 05-17-2022 End: 05-17-2022 Patient encounter procedure No Primary Care Physician [facility] Start: 05-08-2022 End: 05-08-2022 Patient encounter procedure No Primary Care Physician [facility] Start: 04-24-2022 End: 04-24-2022 Patient encounter procedure No Primary Care Physician [facility], Specimen Start: 04-24-2022 End: 04-24-2022 Patient encounter procedure No Primary Care Physician [facility] Start: 04-12-2022 End: 04-12-2022 Patient encounter procedure No Primary Care Physician [facility] Start: 03-27-2022 End: 03-27-2022 Patient encounter procedure No Primary Care Physician [facility] Start: 03-15-2022 End: 03-15-2022 Patient encounter procedure No Primary Care Physician [facility] Start: 03-03-2022 End: 03-03-2022 Patient encounter procedure No Primary Care Physician [facility] Start: 02-27-2022 End: 02-27-2022 Patient encounter procedure No Primary Care Physician [facility] Start: 02-06-2022 End: 02-06-2022 Patient encounter procedure No Primary Care Physician [facility] Start: 01-11-2022 End: 01-11-2022 Patient encounter procedure No Primary Care Physician [facility] Start: 12-12-2021 End: 12-12-2021 Patient encounter procedure No Primary Care Physician [facility] Start: 11-10-2021 End: 11-10-2021 Patient encounter procedure No Primary Care Physician [facility] Start: 03-25-2018 End: 03-26-2018 Patient encounter RHONDA WAN [facility] Procedures Date Procedure Procedure Detail Performing Clinician Start: 02-16-2025 Beta-hemolytic Streptococcus culture No Primary Care Physician Start: 02-12-2025 Measurement of pH in vaginal fluid specimen using nitrazine yellow for detection of rupture of amniotic membrane No Primary Care Physician Comment on above: Amniotic fluid not p resent indicates No Rupture of FetalMembranes at time of specimen collection. Start: 02-12-2025 Gram stain microscopy N o Primary Care Physician Start: 02-12-2025 Source specific culture No Primary Care Physician Start: 01-02-2025 Serologic test for syphilis No Primary Care Physician Group B Streptococcu s Culture No Primary Care Physician Viral antigen assay No Prima ry Care Physician Plan of Treatment Date Care Activity Detail Author Start: 02-16-2025 Streptococcus agalactiae [Presence] in Unspecified specimen by Organism specific culture [facility] Start: 02-16-2025 Group B Streptococcus Culture Group B Streptococcus Culture [facility] Start: 05-29-2022 Patient discharge [facility] Work Phone: Start: 05-27-2022 Administration of medication [facility] Work Phone: Start: 05-27-2022 Application of ice collar, cap or bag [facility] Work Phone: Start: 05-27-2022 Catheterization of vein [facility] Work Phone: Start: 05-27-2022 Introduction of urinary catheter [facility] Work Phone: Start: 05-27-2022 Measuring intake and output [facility] Work Phone: Start: 05-27-2022 Notification of physician [facility] Work Phone: Start: 05-27-2022 Procedure discontinued [facility] Work Phone: Start: 05-27-2022 Provision of activity privileges [facility] Work Phone: Start: 05-27-2022 Vital signs measurements [facility] Work Phone: Start: 05-27-2022 [facility] Work Phone: Start: 05-26-2022 Admission procedure [facility] Work Phone: Start: 05-26-2022 Verification routine [facility] Work Phone: Beta-hemolytic Streptococcus culture [facility] CBC W Auto Different ial panel - Blood [facility] Measurement of gluco se 2 hours after glucose challenge for glucose tolerance test [facility] Patient Education After a Vaginal [facility] Work Phone: Patient referral [facility] Work Phone: Serologic test for syphilis [facility] Streptococcus agalac tiae [Presence] in Unspecified specimen by Organism specific culture [facility] Work Phone: [facility] Immunizations Immunization Date Immunization Notes Care Provider Fa [facility] 01-14-2025 tetanus toxoid, redu jennifer diphtheria toxoid, and acellular pertussis vaccine, adsorbed No Primary Care Physician [facility] 02-27-2022 tetanus toxoid, redu jennifer diphtheria toxoid, and acellular pertussis vaccine, adsorbed No Primary Care Physician [facility] Payers Date Payer Category Payer Self-pay [id number] 2024 Private Health Insurance [id number] 2015 Unknown [id number] 1998 Unknown [id number] Private Health Insurance [id number] Unknown [facility] [id number] Unknown [id number] Unknown [id number] Unknown [id number] Unknown [id number] Unknown [id number] Unknown [id number] Unknown [id number] Unknown [id number] Unknown [id number] Unknown [id number] Unknown [id number] Unknown [id number] Unknown [id number] Unknown [id number] Unknown [id number] Unknown [id number] Unknown [id number] Social History Date Type Detail Facility Start: 02-27-2022 End: 05-26-2022 Tobacco smoking status NHIS Unknown if ever smoked [facility] Work Phone: Start: 2000 Sex Assigned At Female W [facility] Start: 08-01-2024 End: 02-11-2025 Tobacco smoking status NHIS Never smoked tobacco (finding) [facility] Start: 12-11-2024 Sex Female (finding) [facility] Goals Date Patient Goal Desired Activity /State Functional Status Date Assessment Result Facility 05-27-2022 Functional status Activity Abili ty Stand[place] Assist [facility] Work Phone: Clinical Notes 09-01-2024 to 02-16-2025 Note Date & Type Note Facility 02-16-2025 Progress note [facility] 02-16-2025 Progress note Note Date/Time February 16, 2025 2:05pm [facility] [address], [address] [place] [address] OFFICE VISIT Date of Service: 02/16/25 MR#: [id number] Acct: [id number] Name: SPRING BURR Rep #: [id number] : 2000 Provider: FAWN Hernandez Age/Sex: 24/F Location: [facility] [place] Status: Signed Intake Vital Signs 02/11/25 09:32 02/12/25 11:13 02/16/25 13:46 Height 5 ft 8 in 5 ft 8 in 5 ft 8 in Weight: 202 lb 4 oz BMI 30.7 BP 118/80 Intake Visit Reasons: 36wk ob Chief Complaint: 36wk OB Nitroglycerin Neutralizer Required: No Is patient in pain?: No Allergies No Known Allergies Allergy (Verified 02/16/25 13:46) Medications ?Medication ?Instructions ?Recorded ?Confirmed ?Type PNV 153-FA 400 mcg-om3 35 mg-dha tab PO 08/01/2402/16 History 25 mg-epa 5 mg-fish oil chew tablet sertraline 50 mg tablet 50 mg PO QDAY 08/01/2402/16 History Last Menstrual Period: 06/06/24 : No Have you fallen in the past year?: No PFSH PFSH Medical History Pre-eclampsia Family History Grandmother Cancer Mets to brain, lung, bone Breast cancer Paternal Social History adopted: No household members: spouse and children housing: house number of children: 1 current occupational status: employed current occupation: [employer] pets and animals: Yes (Avoid litterbox) pets and animals: cat(s) history of recent travel: No sexually active: Yes Smoking Status: Never smoker alcohol intake: current alcohol intake frequency: holidays/special occasions only details: not while substance use type: does not use well-balanced diet: daily or most days caffeine: No eating out: rarely or never during the past year weight has: decreased > 10 lbs what type of physical activity do you participate in: none daniel/denominational: None seatbelt use: always do you feel safe at home: Yes 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 Date Name GA/Weeks Outcome Route Bth Weight Infant Gen Labor Lgth Anesthesia Del Locatn Provider FOB 05/27/22 Radha 40 live - full term Female epid ural [facility] Antonio Delivery Date: 05/27/22 Last Updated by: Petty Villar SM 40w IOL Pre E HPI 36wk ob Details: SPRING BURR is a 24 year old who presents for routine OB visit. OB Visit DOMENICO Calculator Estimated Delivery Date Method Current WG Current Estimate 03/16/25 Ultrasound #1 36w 0d Other Estimates 03/13/25 LMP (Certain) 36w 3d Expected Delivery Route/Plan Labor Preferences- CB/BF classes:no labor support person: Antonio labor intervention preferences: [] pain management options preferred: epidural if requested cut cord/dad catch: yes : yes PP control planned: discussed discussed possible routes of delivery and associated risks: [] special requests: [] Specific Issue/Plans Covid status: [] Flu vaccine: declined Tdap vaccine: given Rhogam: na LARC form signed: yes Problem list reviewed and updated with the most current plan of care details and appropriate orders placed. Relevant counseling for the gestational age provided. Continue routine care and follow up unless otherwise noted in visit notes/problem list details Initial Weight: 163 lb Date -?-?-?-?-?-?-?-?-?-?-?-?- EGA Weight BP Urine Prot -?-?-?-?-?-?-?-?-?-?-?-?- Glucose FHR FuHt Pres Dilation -?-?-?-?-?-?-?-?-?-?-?-?- Effaced St Visit Note 08/04/24 -?-?-?-?-?-?-?-?-?-?-?-?- 8w 0d 162 lb 2 oz (-14 oz) 123/80 -?-?-?-?-?-?-?-?-?-?-?-?- 165 -?-?-?-?-?-?-?-?-?-?-?-?- SM- CRL cons wit h LMP measuring 8w3d SM- CRL cons with LMP measur ing 8w0d 09/01/24 -?-?-?-?-?-?-?-?-?-?-?-?- 12w 0d 163 lb (+0 oz) 106/67 Negative -?-?-?-?-?-?-?-?-?-?-?-?- Negative 157 -?-?-?-?-?-?-?-?-?-?-?-?- KW- vb/cramping. anatomy US ordered 10/02/24 -?-?-?-?-?-?-?-?-?-?-?-?- 16w 3d 164 lb 2 oz (+1 lb 2 oz) 110/72 Negative -?-?-?-?-?-?-?-?-?-?-?-?- Negative 150 -?-?-?-?-?-?-?-?-?-?-?-?- SM- no vbc rampi ng 11/05/24 -?-?-?-?-?-?-?-?-?-?-?-?- 21w 2d 174 lb 2 oz (+11 lb 2 oz) 104/65 Negative -?-?-?-?-?-?-?-?-?-?-?-?- Negative 145 -?-?-?-?-?-?-?-?-?-?-?-?- KW- no vb/crampi ng. good fm. US reviewed 12/05/24 -?-?-?-?-?-?-?-?-?-?-?-?- 25w 4d 181 lb 6 oz (+18 lb 6 oz) 106/71 Negative -?-?-?-?-?-?-?-?-?-?-?-?- Negative 130 26 -?-?-?-?-?-?-?-?-?-?-?-?- KW- no vb/lof/ct x. good fm has been having headaches and dizzy spells. pre e labs today and compression hose 01/02/25 -?-?-?-?-?-?-?-?-?-?-?-?- 29w 4d 189 lb 4 oz (+26 lb 4 oz) 124/77 Negative -?-?-?-?-?-?-?-?-?-?-?-?- Negative 140 30 -?-?-?-?-?-?-?-?-?-?-?-?- KW- No vb/lof/ct x. good fm. headaches better. glucose labs today. 01/14/25 -?-?-?-?-?-?-?-?-?-?-?-?- 31w 2d 195 lb 4 oz (+32 lb 4 oz) 110/78 Negative -?-?-?-?-?-?-?-?-?-?-?-?- Negative 135 31 -?-?-?-?-?-?-?-?-?-?-?-?- MH-No Vb, LOF. G ood FM. Larc, tdap 01/26/25 -?-?-?-?-?-?-?-?-?-?-?-?- 33w 0d 196 lb (+33 lb) 111/75 Negative -?-?-?-?-?-?-?-?-?-?-?-?- Negative 150 33 -?-?-?-?-?-?-?-?-?-?-?-?- KW- no vb/lof/ct x. good fm. GBS at 36 weeks. 02/11/25 -?-?-?-?-?-?-?-?-?-?-?-?- 35w 2d 201 lb 6 oz (+38 lb 6 oz) 113/78 Negative -?-?-?-?-?-?-?-?-?-?-?-?- Negative 148 36 -?-?-?-?-?-?-?-?-?--?-?-?- JV-no lof, vagin al bleeding, or dec fm. 02/12/25 -?-?-?-?-?-?-?-?-?-?-?-?- 35w 3d 200 lb 8 oz (+37 lb 8 oz) 119/80 Negative -?-?-?-?-?-?-?-?-?-?-?-?- Negative 135 36 -?-?-?-?-?-?-?-?-?-?-?-?- KW- work in for possible ROM. cramping since yesterday and reports feeling wet since then. good fm. ROM and GBS today. PUSHPA by - KW- work in for possible ROM . cramping since yesterday and reports feeling wet since then. good fm. ROM and GBS today. PUSHPA by - 13. 02/16/25 -?-?-?-?-?-?-?-?-?-?-?-?- 36w 0d 202 lb 4 oz (+39 lb 4 oz) 118/80 Negative -?-?-?-?-?-?-?-?-?-?-?-?- Negative 130 37 Cephalic 2 .5 -?-?-?-?-?-?-?-?-?-?-?-?- 50 -2 KW- no vb/ lof/ctx. good fm. no concerns today ACOG First Trimester First Trimester: Desire for , Alcohol, Tobacco Cessation, Illicit/Recreational Drug/Substance Use, Intimate Partner Violence, Barriers to care, Unstable Housing, Communication Barriers, Environmental/Work Hazards, Anticipated Course of Care, Toxoplasmosis Precations, Use of Any medications, Sexual activity, Exercise, Dental Care, Sauna/Hot tub use, Seat Belt use, Childbirth classes/Hospital facilities, Travel, Indications for Ultrasound and Screening for Aneuploidy; Discussed Second Trimester Second Trimester: Signs and Symptoms of Labor, Selecting a care provider, Reproductive Life Planning & Contreception, Care Planning, Depression/Anxiety and Intimate Partner Violence; Discussed Tobacco Cessation Third Trimester Third Trimester: Pain Management Plans, Labor support person(s), Immediate Larc, Circumcision preference, Signs and Symptoms of Preeclampsia, Feeding No , Education and Family Medical Leave or Disability Forms; Discussed Tobacco Cessation ROS Const Reports system reviewed and no additional complaints, except as documented Eyes Reports system reviewed and no additional complaints, except as documented ENT Reports system reviewed and no additional complaints, except as documented Card Reports system reviewed and no additional complaints, except as documented Resp Reports system reviewed and no additional complaints, except as documented GI Reports system reviewed and no additional complaints, except as documented, Denies nausea and Denies vomiting Reports system reviewed and no additional complaints, except as documented Musc Reports system reviewed and no additional complaints, except as documented Skin/Breast Reports system reviewed and no additional complaints, except as documented Neuro Yes system reviewed and no additional complaints, except as documented Psych Reports system reviewed and no additional complaints, except as documented Endo Reports system reviewed and no additional complaints, except as documented Prosper/Lymph Reports system reviewed and no additional complaints, except as documented Aller/Immun Reports system reviewed and no additional complaints, except as documented Exam Const General: cooperative, healthy appearing and no acute distress Orientation: alert, awake and oriented x3 Neck Neck: normal visual inspection and full ROM Resp Effort & Inspection: normal respiratory effort, able to speak in complete sentences and symmetric chest movement GI Inspection: normal to inspection Palpation: soft and other Other: gravid Skin General: no rashes or lesions noted Neuro General: patient alert, patient awake and patient oriented x3 Cognition: normal cognition Speech: speech normal Gait: normal gait Motor: muscle tone normal throughout Extrem General: normal to inspection and full ROM Psych Appearance: grossly normal Mental Status: mental status grossly normal Mood: congruent mood Affect: normal affect Speech and Movement: speech and movement normal Attitude: cooperative Thought Process: normal Thought Content: normal Judgment: judgment good Results POC Urinalysis 2 Dip (Clinic) Office Urine Glucose Negative Last Edit by Christen Ye on 02/16/25 13:56 Office Urine Protein Negative Last Edit by Christen Ye on 02/16/25 13:56 Coding Level of Care Code OB Routine Diagnoses 36 weeks gestation of Z3A.36 Weeks of gestation: 36 weeks FH: breast cancer Z80.3 Supervision of high risk in third trimester O09.93 Trimester: third trimester Hx of pre-eclampsia in prior , currently O09.299 Depression, unspecified depression type F32.A Depression Type: unspecified Assessment and Plan Assessment and Plan (1) : Status: Acute Qualifiers: Weeks of gestation: 36 weeks Qualified Code(s): Z3A.36 - 36 weeks gestation of Comment: declined afp NIPT & Carrier testing. nl anatomy (2) FH: breast cancer: Status: Acute Comment: Paternal Grandmother Breast Cancer (3) Supervision of high-risk : Status: Acute Qualifiers: Trimester: third trimester Qualified Code(s): O09.93 - Supervision of high risk , unspecified, third trimester Comment: PRR , DOMENICO 03/13/25, PC Radha, Antonio (4) Hx of pre-eclampsia in prior , currently : Status: Acute Comment: baseline labs ordered and recommend 81 mg asa at 14 weeks. (5) Depression: Status: Acute Qualifiers: Depression Type: unspecified Qualified Code(s): F32.A - Depression, unspecified Comment: sertraline increased to 100mg recommend counseling. stable Orders: Orders POC Urinalysis 2 Dip (Clinic) Today Culture, Group B Streptococcus Today O09.93 - Supervision of high risk , unspecified, third trimester, Z3A.36 - 36 weeks gestation of Plan Details Additional Comments: ACOG trimester education reviewed and updated. see problem list details for updated plan management information and see below for orders placed at this visit. [place] appropriate handout given. Clinical Quality Measures Falls Risk Screening/Assistive Devices Have you fallen in the past year?: No 02/16/25 3393 <Electronically signed by Zena agudelo CNM> Date _ Zena Hernandez CNM Cosignlakhwinder Signature: Date (if applicable) CC: ~ [facility] Work Phone: [phone]) 248-707805-29-2025 [facility], [address] [place] [id number] OFFICE VISIT Date of Service: 02/12/25 MR#: [id number] Acct: [id number] Name: SPRING BURR Rep #: [id number] : 2000 Provider: FAWN Hernandez Age/Sex: 24/F Location: [facility] [place] Status: Signed Intake Vital Signs 02/11/25 09:50 02/12/25 11:13 Height 5 ft 8 in 5 ft 8 in Weight: 200 lb 8 oz BMI 30.4 BP 119/80 Intake Visit Reasons: ROM check Chief Complaint: ROM Check Nitroglycerin Neutralizer Required: No Is patient in pain?: No Allergies No Known Allergies Allergy (Verified 02/12/25 11:11) Medications ?Medication ?Instructions ?Recorded ?Confirmed ?Type PNV 153-FA 400 mcg-om3 35 mg-dha tab PO 08/01/2402/12 History 25 mg-epa 5 mg-fish oil chew tablet sertraline 50 mg tablet 50 mg PO QDAY 08/01/2402/12 History Last Menstrual Period: 06/06/24 : No Have you fallen in the past year?: No PFSH PFSH Medical History Pre-eclampsia Family History Grandmother Cancer Mets to brain, lung, bone Breast cancer Paternal Social History adopted: No household members: spouse and children housing: house number of children: 1 current occupational status: employed current occupation: [employer] pets and animals: Yes (Avoid litterbox) pets and animals: cat(s) history of recent travel: No sexually active: Yes Smoking Status: Never smoker alcohol intake: current alcohol intake frequency: holidays/special occasions only details: not while substance use type: does not use well-balanced diet: daily or most days caffeine: No eating out: rarely or never during the past year weight has: decreased > 10 lbs what type of physical activity do you participate in: none daniel/denominational: None seatbelt use: always do you feel safe at home: Yes 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 Date Name GA/Weeks Outcome Route Bth Weight Gen Labor Lgth Anesthesia Del Locatn Provider FOB 05/27/22 Radha 40 live - full term Female epid ural [facility] Antonio Delivery Date: 05/27/22 Last Updated by: Petty Villar SM 40w IOL Pre E HPI ROM check Details: SPRING BURR is a 24 year old who presents for routine OB visit. OB Visit DOMENICO Calculator Estimated Delivery Date Method Current WG Current Estimate 03/16/25 Ultrasound #1 35w 3d Other Estimates 03/13/25 LMP (Certain) 35w 6d Expected Delivery Route/Plan Labor Preferences- CB/BF classes:no labor support person: Antonio labor intervention preferences: [] pain management options preferred: epidural if requested cut cord/dad catch: yes : yes PP control planned: discussed discussed possible routes of delivery and associated risks: [] special requests: [] Specific Issue/Plans Covid status: [] Flu vaccine: declined Tdap vaccine: given Rhogam: na LARC form signed: yes Problem list reviewed and updated with the most current plan of care details and appropriate ordersplaced. Relevant counseling for the gestational age provided. Continue routine care and follow up unless otherwise noted in visit notes/problem list details Initial Weight: 163 lb Date -?-?-?-?-?-?-?-?-?-?-?-?- EGA Weight BP Urine Prot -?-?-?-?-?-?-?-?-?-?-?-?- Glucose FHR FuHt Pres Dilation -?-?-?-?-?-?-?-?-?-?-?-?- Effaced St Visit Note 08/04/24 -?-?-?-?-?-?-?-?-?-?-?-?- 8w 0d 162 lb 2 oz (-14 oz) 123/80 -?-?-?-?-?-?-?-?-?-?-?-?- 165 -?-?-?-?-?-?-?-?-?-?-?-?- SM- CRL cons wit h LMP measuring 8w3d SM- CRL cons with LMP measur ing 8w0d 09/01/24 -?-?-?-?-?-?-?-?-?-?-?-?- 12w 0d 163 lb (+0 oz) 106/67 Negative -?-?-?-?-?-?-?-?-?-?-?-?- Negative 157 -?-?-?-?-?-?-?-?-?-?-?-?- KW- vb/cramping. anatomy US ordered 10/02/24 -?-?-?-?-?-?-?-?-?-?-?-?- 16w 3d 164 lb 2 oz (+1 lb 2 oz) 110/72 Negative -?-?-?-?-?-?-?-?-?-?-?-?- Negative 150 -?-?-?-?-?-?-?-?-?-?-?-?- SM- no vbc rampi ng 11/05/24 -?-?-?-?-?-?-?-?-?-?-?-?- 21w 2d 174 lb 2 oz (+11 lb 2 oz) 104/65 Negative -?-?-?-?-?-?-?-?-?-?-?-?- Negative 145 -?-?-?-?-?-?-?-?-?-?-?-?- KW- no vb/crampi ng. good fm. US reviewed 12/05/24 -?-?-?-?-?-?-?-?-?-?-?-?- 25w 4d 181 lb 6 oz (+18 lb 6 oz) 106/71 Negative -?-?-?-?-?-?-?-?-?-?-?-?- Negative 130 26 -?-?-?-?-?-?-?-?-?-?-?-?- KW- no vb/lof/ct x. good fm has been having headaches and dizzy spells. pre e labs today and compression hose 01/02/25 -?-?-?-?-?-?-?-?-?-?-?-?- 29w 4d 189 lb 4 oz (+26 lb 4 oz) 124/77 Negative -?-?-?-?-?-?-?-?-?-?--?-?- Negative 140 30 -?-?-?-?-?-?-?-?-?-?-?-?- KW- No vb/lof/ct x. good fm. headaches better. glucose labs today. 01/14/25 -?-?-?-?-?-?-?-?-?-?-?-?- 31w 2d 195 lb 4 oz (+32 lb 4 oz) 110/78 Negative -?-?-?-?-?-?-?-?-?-?-?-?- Negative 135 31 -?-?-?-?-?-?-?-?-?-?-?-?- MH-No Vb, LOF. G ood FM. Larc, tdap 01/26/25 -?-?-?-?-?-?-?-?-?-?-?-?- 33w 0d 196 lb (+33 lb) 111/75 Negative -?-?-?-?-?-?-?-?-?-?-?-?- Negative 150 33 -?-?-?-?-?-?-?-?-?-?-?-?- KW- no vb/lof/ct x. good fm. GBS at 36 weeks. 02/11/25 -?-?-?-?-?-?-?-?-?-?-?-?- 35w 2d 201 lb 6 oz (+38 lb 6 oz) 113/78 Negative -?-?-?-?-?-?-?-?-?-?-?-?- Negative 148 36 -?-?-?-?-?-?-?-?-?-?-?-?- JV-no lof, vagin al bleeding, or dec fm. 02/12/25 -?-?-?-?-?-?-?-?-?-?-?-?- 35w 3d 200 lb 8 oz (+37 lb 8 oz) 119/80 Negative -?-?-?-?-?-?-?-?-?-?-?-?- Negative 135 36 -?-?-?-?-?-?-?-?-?-?-?-?- KW- work in for possible ROM. cramping since yesterday and reports feeling wet since then. good fm. ROM and GBS today. PUSHPA by SM- KW- work in for possible ROM . cramping since yesterday and reports feeling wet since then. good fm. ROM and GBS today. PUSHPA by SM- 13. ACOG First Trimester First Trimester: Desire for , Alcohol, Tobacco Cessation, Illicit/Recreational Drug/Substance Use, Intimate Partner Violence, Barriers to care, Unstable Housing, Communication Barriers, Environmental/Work Hazards, Anticipated Course of Care, Toxoplasmosis Precations, Use of Any med ications, Sexual activity, Exercise, Dental Care, Sauna/Hot tub use, Seat Belt use, Childbirth classes/Hospital facilities, Travel, Indications for Ultrasound and Screening for Aneuploidy; Discussed Second Trimester Second Trimester: Signs and Symptoms of Labor, Selecting a care provider, Reproductive Life Planning & Contreception, Care Planning, Depression/Anxiety and Intimate Partner Violence; Discussed Tobacco Cessation Third Trimester Third Trimester: Pain Management Plans, Labor support person(s), Immediate Larc, Circumcision preference, Signs and Symptoms of Preeclampsia, Feeding No , Education and Family Medical Leave or Disability Forms; Discussed Tobacco Cessation ROS Const Reports system reviewed and no additional complaints, except as documented Eyes Reports system reviewed and no additional complaints, except as documented ENT Reports system reviewed and no additional complaints, except as documented Card Reports system reviewed and no additional complaints, except as documented Resp Reports system reviewed and no additional complaints, except as documented GI Reports system reviewed and no additional complaints, except as documented, Denies nausea and Denies vomiting Reports system reviewed and no additional complaints, except as documented Musc Reports system reviewed and no additional complaints, except as documented Skin/Breast Reports system reviewed and no additional complaints, except as documented Neuro Yes system reviewed and no additional complaints, except as documented Psych Reports system reviewed and no additional complaints, except as documented Endo Reports system reviewed and no additional complaints, except as documented Prosper/Lymph Reports system reviewed and no additional complaints, except as documented Aller/Immun Reports system reviewed and no additional complaints, except as documented Exam Const General: cooperative, healthy appearing and no acute distress Orientation: alert, awake and oriented x3 Neck Neck: normal visual inspection and full ROM Resp Effort & Inspection: normal respiratory effort, able to speak in complete sentences and symmetric chest movement GI Inspection: normal to inspection Palpation: soft and other Other: gravid Skin General: no rashes or lesions noted Neuro General: patient alert, patient awake and patient oriented x3 Cognition: normal cognition Speech: speech normal Gait: normal gait Motor: muscle tone normal throughout Extrem General: normal to inspection and full ROM Psych Appearance: grossly normal Mental Status: mental status grossly normal Mood: congruent mood Affect: normal affect Speech and Movement: speech and movement normal Attitude: cooperative Thought Process: normal Thought Content: normal Judgment: judgment good Results POC Urinalysis 2 Dip (Clinic) Office Urine Glucose Negative Last Edit by Christen Ye on 02/12/25 11:26 Office Urine Protein Negative Last Edit by Christen Ye on 02/12/25 11:26 Coding Level of Care Code Off vis,est,level 3 Diagnoses 35 weeks gestation of Z3A.35 Weeks of gestation: 35 weeks FH: breast cancer Z80.3 Supervision of high risk in third trimester O09.93 Trimester: third trimester Hx of pre-eclampsia in prior , currently O09.299 Depression, unspecified depression type F32.A Depression Type: unspecified Assessment and Plan Assessment and Plan (1) : Status: Acute Qualifiers: Weeks of gestation: 35 weeks Qualified Code(s): Z3A.35 - 35 weeks gestation of Comment: declined afp NIPT & Carrier testing. nl anatomy (2) FH: breast cancer: Status: Acute Comment: Paternal Grandmother Breast Cancer (3) Supervision of high-risk : Status: Acute Qualifiers: Trimester: third trimester Qualified Code(s): O09.93 - Supervision of high risk , unspecified, third trimester Comment: PRR , DOMENICO 03/13/25, PC Radha, Antonio (4) Hx of pre-eclampsia in prior , currently : Status: Acute Comment: baseline labs ordered and recommend 81 mg asa at 14 weeks. (5) Depression: Status: Acute Qualifiers: Depression Type: unspecified Qualified Code(s): F32.A - Depression, unspecified Comment: sertraline increased to 100mg recommend counseling. stable Orders: Orders (ROM) Rupture Of Membranes Today O09.93 - Supervision of high risk , unspecified, third trimester, Z3A.35 - 35 weeks gestation of POC Urinalysis 2 Dip (Clinic) Today Plan Details Additional Comments: ACOG trimester education reviewed and updated. see problem list details for updated plan management information and see below for orders placed atthis visit. [place] appropriate handout given. Clinical Quality Measures Falls Risk Screening/Assistive Devices Have you fallen in the past year?: No 02/12/25 1154 s FAWN> Date _ Zena Carranza Signature: Date (if applicable) CC: ~ [facility]05-28-2025 [facility] [address] [place] [address], [address] [place] [address] OFFICE VISIT Date of Service: 02/11/25 MR#: [id number] Acct: [id number] Name: SPRING BURR Rep #: [id number] : 2000 Provider: Dr. Tanya Lockett DO Age/Sex: 24/F Location: [facility] [place] Status: Signed Intake Vital Signs 09/01/24 14:10 01/26/25 09:26 02/11/25 09:31 02/11/25 09:32 Height 5 ft 8 in 5 ft 8 in 5 ft 8 in 5 ft 8 in Weight: 201 lb 6 oz BMI 30.6 BP 113/78 Intake Visit Reasons: 34 WK OB Nitroglycerin Neutralizer Required: No Is patient in pain?: No Allergies No Known Allergies Allergy (Verified 02/11/25 09:31) Medications ?Medication ?Instructions ?Recorded ?Confirmed ?Type PNV 153-FA 400 mcg-om3 35 mg-dha tab PO 08/01/2402/11 History 25 mg-epa 5 mg-fish oil chew tablet sertraline 50 mg tablet 50 mg PO QDAY 08/01/2402/11 History Last Menstrual Period: 06/06/24 Zika: Zika virus screening: Negative : No PFSH PFSH Medical History Pre-eclampsia Family History Grandmother Cancer Mets to brain, lung, bone Breast cancer Paternal Social History adopted: No household members: spouse and children housing: house number of children: 1 current occupational status: employed current occupation: [employer] pets and animals: Yes (Avoid litterbox) pets and animals: cat(s) history of recent travel: No sexually active: Yes Smoking Status: Never smoker alcohol intake: current alcohol intake frequency: holidays/special occasions only details: not while substance use type: does not use well-balanced diet: daily or most days caffeine: No eating out: rarely or never during the past year weight has: decreased > 10 lbs what type of physical activity do you participate in: none daniel/denominational: None seatbelt use: always do you feel safe at home: Yes 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 Date Name GA/Weeks Outcome Route Bth Weight Gen [facility] F[facility]22 Radha 40 live - full term Female epid ural [facility] Antonio Delivery Date: 05/27/22 Last Updated by: Petty WALKER 40w IOL Pre E HPI 34 WK OB Details: SPRING BURR is a 24 year old who presents for routine OB visit. OB Visit DOMENICO Calculator Estimated Delivery Date Method Current WG Current Estimate 03/16/25 Ultrasound #1 35w 2d Other Estimates 03/13/25 LMP (Certain) 35w 5d Expected Delivery Route/Plan Labor Preferences- CB/BF classes:no labor support person: Antonio labor intervention preferences: [] pain management options preferred: epidural if requested cut cord/dad catch: yes : yes PP control planned: discussed discussed possible routes of delivery and associated risks: [] special requests: [] Specific Issue/Plans Covid status: [] Flu vaccine: declined Tdap vaccine: given Rhogam: na LARC form signed: yes Problem list reviewed and updated with the most current plan of care details and appropriate ordersplaced. Relevant counseling for the gestational age provided. Continue routine care and follow up unless otherwise noted in visit notes/problem list details Initial Weight: 163 lb Date -?-?-?-?-?-?-?-?-?-?-?-?- EGA Weight BP Urine Prot -?-?-?-?-?-?-?-?-?-?-?-?- Glucose FHR FuHt Pres Dilation -?-?-?-?-?-?-?-?-?-?-?-?- Effaced St Visit Note 08/04/24 -?-?-?-?-?-?-?-?-?-?-?-?- 8w 0d 162 lb 2 oz (-14 oz) 123/80 -?-?-?-?-?-?-?-?-?-?-?-?- 165 -?-?-?-?-?--?-?-?-?-?-?-?- SM- CRL cons wit h LMP measuring 8w3d SM- CRL cons with LMP measur ing 8w0d 09/01/24 -?-?-?-?-?-?-?-?-?-?-?-?- 12w 0d 163 lb (+0 oz) 106/67 Negative -?-?-?-?-?-?-?-?-?-?-?-?- Negative 157 -?-?-?-?-?-?-?-?-?-?-?-?- KW- vb/cramping. anatomy US ordered 10/02/24 -?-?-?-?-?-?-?-?-?-?-?-?- 16w 3d 164 lb 2 oz (+1 lb 2 oz) 110/72 Negative -?-?-?-?-?-?-?-?-?-?-?-?- Negative 150 -?-?-?-?-?-?-?--?-?-?-?-?- SM- no vbc rampi ng 11/05/24 -?-?-?-?-?-?-?-?-?-?-?-?- 21w 2d 174 lb 2 oz (+11 lb 2 oz) 104/65 Negative -?-?-?-?-?--?-?-?-?-?-?-?- Negative 145 -?-?-?-?-?-?-?-?-?-?-?-?- KW- no vb/crampi ng. good fm. US reviewed 12/05/24 -?-?-?-?-?-?-?-?-?-?-?-?- 25w 4d 181 lb 6 oz (+18 lb 6 oz) 106/71 Negative -?-?-?-?-?-?-?-?-?-?-?-?- Negative 130 26 -?-?-?-?-?-?-?-?-?-?-?-?- KW- no vb/lof/ct x. good fm has been having headaches and dizzy spells. pre e labs today and compression hose 01/02/25 -?-?-?-?-?-?-?-?-?-?-?-?- 29w 4d 189 lb 4 oz (+26 lb 4 oz) 124/77 Negative -?-?-?-?-?-?-?-?-?-?-?-?- Negative 140 30 -?-?-?-?-?-?-?-?-?-?-?-?- KW- No vb/lof/ct x. good fm. headaches better. glucose labs today. 01/14/25 -?-?-?-?-?-?-?-?-?-?-?-?- 31w 2d 195 lb 4 oz (+32 lb 4 oz) 110/78 Negative -?-?-?-?-?-?-?-?-?-?-?-?- Negative 135 31 -?-?-?-?-?-?-?-?-?-?-?-?- MH-No Vb, LOF. G ood FM. Larc, tdap 01/26/25 -?-?-?-?-?-?-?-?-?-?-?-?- 33w 0d 196 lb (+33 lb) 111/75 Negative -?-?-?-?-?-?-?-?-?-?-?-?- Negative 150 33 -?-?-?-?-?-?-?-?-?-?-?-?- KW- no vb/lof/ct x. good fm. GBS at 36 weeks. 02/11/25 -?-?-?-?-?-?-?-?-?-?-?-?- 35w 2d 201 lb 6 oz (+38 lb 6 oz) 113/78 Negative -?-?-?-?-?-?-?-?-?-?-?-?- Negative 148 36 -?-?-?-?-?-?-?-?-?-?-?-?- JV-no lof, vagin al bleeding, or dec fm. ACOG First Trimester First Trimester: Desire for , Alcohol, Tobacco Cessation, Illicit/Recreational Drug/Substance Use, Intimate Partner Violence, Barriers to care, Unstable Housing, Communication Barriers, Environmental/Work Hazards, Anticipated Course of Care, Toxoplasmosis Precations, Use of Any med ications, Sexual activity, Exercise, Dental Care, Sauna/Hot tub use, Seat Belt use, Childbirth classes/Hospital facilities, Travel, Indications for Ultrasound and Screening for Aneuploidy; Discussed Second Trimester Second Trimester: Signs and Symptoms of Labor, Selecting a care provider, Reproductive Life Planning & Contreception, Care Planning, Depression/Anxiety and Intimate Partner Violence; Discussed Tobacco Cessation Third Trimester Third Trimester: Pain Management Plans, Labor support person(s), Immediate Larc, Circumcision preference, Signs and Symptoms of Preeclampsia, Feeding No , [place] Education and Family Medical Leave or Disability Forms; Discussed Tobacco Cessation Results POC Urinalysis 2 Dip (Clinic) Office Urine Glucose Negative Last Edit by Fadumo George on 02/11/25 09: 40 Office Urine Protein Negative Last Edit by Fadumo George on 02/11/25 09: 40 Coding Level of Care Code OB Routine Diagnoses 35 weeks gestation of Z3A.35 Weeks of gestation: 35 weeks FH: breast cancer Z80.3 Supervision of high risk in third trimester O09.93 Trimester: third trimester Hx of pre-eclampsia in prior , currently O09.299 Depression, unspecified depression type F32.A Depression Type: unspecified Assessment and Plan Assessment and Plan (1) : Status: Acute Qualifiers: Weeks of gestation: 35 weeks Qualified Code(s): Z3A.35 - 35 weeks gestation of Comment: declined afp NIPT & Carrier testing. nl anatomy (2) FH: breast cancer: Status: Acute Comment: Paternal Grandmother Breast Cancer (3) Supervision of high-risk : Status: Acute Qualifiers: Trimester: third trimester Qualified Code(s): O09.93 - Supervision of high risk , unspecified, third trimester Comment: PRR , DOMENICO 03/13/25, PC Radha, Antonio (4) Hx of pre-eclampsia in prior , currently : Status: Acute Comment: baseline labs ordered and recommend 81 mg asa at 14 weeks. (5) Depression: Status: Acute Qualifiers: Depression Type: unspecified Qualified Code(s): F32.A - Depression, unspecified Comment: sertraline increased to 100mg recommend counseling. stable Orders: Orders POC Urinalysis 2 Dip (Clinic) Today 02/11/25 0949 e Isaura DO> Date _ Cristina Ignacio Signature: Date (if applicable) CC: ~ [facility]02-19-2025 Evaluation note* Diagnosis Onset Date Resolution Status Admit Date Depression acute November 05, 2024 9:04am FH: breast cancer acute Februar y 2024 9:04am Hx of pre-eclampsia in prior , currently acute Fe bruary 2024 9:04am acute November 05, 2024 9:04am Supervision of high-risk acute November 05, 2 9:04am Depression acute December 05 10:28am FH: breast cancer acute November 162024 10:28am Hx of pre-eclampsia in prior , currently acute Ma [facility] 2024 10:28am acute December 05 10:28am Supervision of high-risk acute December 05, 2024 10:28am Depression acute January 02 1:00pm FH: breast cancer acute December 162024 1:00pm Hx of pre-eclampsia in prior , currently acute Ap 2024 1:00pm acute January 02 1:00pm Supervision of high-risk acute January 02, 2025 1:00pm Depression acute January 14 9:51am FH: breast cancer acute December 182024 9:51am Hx of pre-eclampsia in prior , currently acute Ap ril 2024 9:51am acute January 14 9:51am Supervision of high-risk acute January 14, 2025 9:51am Depression acute January 26, 2025 9:19am FH: breast cancer acute January 9:19am Hx of pre-eclampsia in prior , currently acute Ma 2024 9:19am acute January 26, 2025 9:19am Supervision of high-risk acute January 26, 2025 9 :19am Depression acute February 11, 2025 9:29am FH: breast cancer acute January 9:29am Hx of pre-eclampsia in prior , currently acute Ma y 2024 9:29am acute February 11, 2025 9:29am Supervision of high-risk acute February 11, 2025 9 :29am [facility] Work Phone: 1(115) 380-811202-19-2025 Evaluation note* Diagnosis Onset Date Resolution Status Admit Date Depression acute November 05, 2024 9:04am FH: breast cancer acute Februar y 2024 9:04am Hx of pre-eclampsia in prior , currently acute Fe bruary 2024 9:04am acute November 05, 2024 9:04am Supervision of high-risk acute November 05, 2 025 9:04am Depression acute December 05 10:28am FH: breast cancer acute November 162024 10:28am Hx of pre-eclampsia in prior , currently acute Ma [facility] 2024 10:28am acute December 05 10:28am Supervision of high-risk acute December 05, 2024 10:28am Depression acute January 02 1:00pm FH: breast cancer acute December 162024 1:00pm Hx of pre-eclampsia in prior , currently acute Ap 2024 1:00pm acute January 02 1:00pm Supervision of high-risk acute January 02, 2025 1:00pm Depression acute January 14 9:51am FH: breast cancer acute December 182024 9:51am Hx of pre-eclampsia in prior , currently acute Ap 2024 9:51am acute January 14 9:51am Supervision of high-risk acute January 14, 2025 9:51am Depression acute January 26, 2025 9:19am FH: breast cancer acute January 9:19am Hx of pre-eclampsia in prior , currently acute Ma y 2024 9:19am acute January 26, 2025 9:19am Supervision of high-risk acute January 26, 2025 9 :19am Depression acute February 11, 2025 9:29am FH: breast cancer acute January 9:29am Hx of pre-eclampsia in prior , currently acute Ma y 2024 9:29am acute February 11, 2025 9:29am Supervision of high-risk acute February 11, 2025 9 :29am Depression acute February 12, 2025 11:01am FH: breast cancer acute January 11:01am Hx of pre-eclampsia in prior , currently acute Ma y 2024 11:01am acute February 12, 2025 11:01am Supervision of high-risk acute February 12, 2025 1 1:01am [facility] Work Phone: 1(673) 492-592402-19-2025 Evaluation note* Diagnosis Onset Date Resolution Status Admit Date Depression acute November 05, 2024 9:04am FH: breast cancer acute ua2024 9:04am Hx of pre-eclampsia in prior , currently acute Fe bruary 2024 9:04am acute November 05, 2024 9:04am Supervision of high-risk acute November 05 9:04am Depression acute December 05 10:28am FH: breast cancer acute November 162024 10:28am Hx of pre-eclampsia in prior , currently acute Ma [facility] 2024 10:28am acute December 05 10:28am Supervision of high-risk acute December 05, 2024 10:28am Depression acute January 02 1:00pm FH: breast cancer acute December 162024 1:00pm Hx of pre-eclampsia in prior , currently acute Ap ril 2024 1:00pm acute January 02 1:00pm Supervision of high-risk acute January 02, 2025 1:00pm Depression acute January 14 9:51am FH: breast cancer acute December 182024 9:51am Hx of pre-eclampsia in prior , currently acute Ap ril 2024 9:51am acute January 14 9:51am Supervision of high-risk acute January 14, 2025 9:51am Depression acute January 26, 2025 9:19am FH: breast cancer acute January 9:19am Hx of pre-eclampsia in prior , currently acute Ma 2024 9:19am acute January 26, 2025 9:19am Supervision of high-risk acute January 26, 2025 9 :19am Depression acute February 11, 2025 9:29am FH: breast cancer acute January h2024 9:29am Hx of pre-eclampsia in prior , currently acute Ma y 2024 9:29am acute February 11, 2025 9:29am Supervision of high-risk acute February 11, 2025 9 :29am Depression acute February 12, 2025 11:01am FH: breast cancer acute January 11:01am Hx of pre-eclampsia in prior , currently acute Ma y 2024 11:01am acute February 12, 2025 11:01am Supervision of high-risk acute February 12, 2025 1 1:01am Depression acute February 16, 2025 1:42pm FH: breast cancer acute February 1:42pm Hx of pre-eclampsia in prior , currently acute Ju 2024 1:42pm acute February 16, 2025 1:42pm Supervision of high-risk acute February 16, 2025 1 :42pm [facility] Work Phone: 1(918) 699-443602-19-2025 Evaluation note* Diagnosis Onset Date Resolution Status Admit Date Depression acute November 05, 2024 9:04am FH: breast cancer acute Februar y 2024 9:04am Hx of pre-eclampsia in prior , currently acute Fe bruary 2024 9:04am acute November 05, 2024 9:04am Supervision of high-risk acute November 05, 9:04am Depression acute December 05 10:28am FH: breast cancer acute November 162024 10:28am Hx of pre-eclampsia in prior , currently acute Ma [facility] 2024 10:28am acute December 05 10:28am Supervision of high-risk acute December 05, 2024 10:28am Depression acute January 02 1:00pm FH: breast cancer acute December 162024 1:00pm Hx of pre-eclampsia in prior , currently acute Ap 2024 1:00pm acute January 02 1:00pm Supervision of high-risk acute January 02, 2025 1:00pm Depression acute January 14 9:51am FH: breast cancer acute December 182024 9:51am Hx of pre-eclampsia in prior , currently acute Ap ril 2024 9:51am acute January 14 9:51am Supervision of high-risk acute January 14, 2025 9:51am Depression acute January 26, 2025 9:19am FH: breast cancer acute January 9:19am Hx of pre-eclampsia in prior , currently acute 2024 9:19am acute January 26, 2025 9:19am Supervision of high-risk acute January 26, 2025 9 :19am Depression acute February 11, 2025 9:29am FH: breast cancer acute January 9:29am Hx of pre-eclampsia in prior , currently acute 2024 9:29am acute February 11, 2025 9:29am Supervision of high-risk acute February 11, 2025 9 :29am Depression acute February 12, 2025 11:01am FH: breast cancer acute January 11:01am Hx of pre-eclampsia in prior , currently acute 2024 11:01am acute February 12, 2025 11:01am Supervision of high-risk acute February 12, 2025 1 1:01am Depression acute February 16, 2025 1:42pm FH: breast cancer acute February 1:42pm Hx of pre-eclampsia in prior , currently acute 2024 1:42pm acute February 16, 2025 1:42pm Supervision of high-risk acute February 16, 2025 1 :42pm Depression acute February 24 8:07am FH: breast cancer acute February 242024 8:07am Hx of pre-eclampsia in prior , currently acute 2024 8:07am acute February 24 8:07am Supervision of high-risk acute February 24, 2025 8:07am [facility] Work Phone: 1(787) 625-487312-16-2024 Evaluation note* Diagnosis Onset Date Resolution Status Admit Date Depression acute September 01, 2024 2:04pm FH: breast cancer acute [facility] 2023 2:04pm Hx of pre-eclampsia in prior , currently acute De cember 2023 2:04pm acute September 01, 2024 2:04pm Supervision of high-risk acute September 01 024 2:04pm Depression acute October 02, 2024 9:31am FH: breast cancer acute October 02, 2024 9:31am Hx of pre-eclampsia in prior , currently acute [facility] 2024 9:31am acute October 02, 2024 9:31am Supervision of high-risk acute October 02 9:31am Depression acute November 05, 2024 9:04am FH: breast cancer acute 2024 9:04am Hx of pre-eclampsia in prior , currently acute [facility] 2024 9:04am acute November 05, 2024 9:04am Supervision of high-risk acute November 05, 025 9:04am Depression acute December 05 10:28am FH: breast cancer acute November 162024 10:28am Hx of pre-eclampsia in prior , currently acute [facility] 2024 10:28am acute December 05 10:28am Supervision of high-risk acute December 05, 2024 10:28am [facility] Work Phone: Evaluation note* Diagnosis Onset Date Resolution Status acute Supervision of normal first acute acute Supervision of normal first acute acute Supervision of normal first acute acute Supervision of normal first acute [id number] acute acute Supervision of normal first acute [facility] Work Phone: Evaluation note* Diagnosis Onset Date Resolution Status acute Supervision of normal first acute acute Supervision of normal first acute acute Supervision of normal first acute [id number] resolved acute Supervision of normal first acute [id number] resolved Abnormal glucose affecting acute acute Supervision of normal first acute Abnormal glucose affecting acute acute Supervision of normal first acute Abnormal glucose affecting acute acute Supervision of normal first acute [facility] Work Phone: Evaluation note* Diagnosis Onset Date Resolution Status resolved Supervision of normal first resolved [id number] resolved resolved Supervision of normal first resolved [id number] resolved resolved Supervision of normal first resolved Abnormal glucose affecting resolved resolved Supervision of normal first resolved Abnormal glucose affecting resolved resolved Supervision of normal first resolved Abnormal glucose affecting resolved resolved Supervision of normal first resolved Abnormal glucose affecting resolved resolved Supervision of normal first resolved Abnormal glucose affecting resolved resolved Supervision of normal first resolved Abnormal glucose affecting resolved resolved Supervision of normal first resolved Preeclampsia, severe acute Vaginal delivery acute Abnormal glucose affecting resolved Gestational hypertension res olved resolved Supervision of normal first resolved [facility] Work Phone: Progress note Author Cristina Delarosa [facility] Note Date/Time February 11, 2025 9:49a m [facility] [address], [address] [place] [address] OFFICE VISIT Date of Service: 02/11/25 MR#: [id number] Acct: [id number] Name: SPRING BURR LUCHO Rep #: [id number] : 2000 Provider: Dr. Tanya Lockett DO Age/Sex: 24/F Location: [facility] [place] Status: Signed Intake Vital Signs 09/01/24 14:10 01/26/25 09:26 02/11/25 09:31 02/11/25 09:32 Height 5 ft 8 in 5 ft 8 in 5 ft 8 in 5 ft 8 in Weight: 201 lb 6 oz BMI 30.6 BP 113/78 Intake Visit Reasons: 34 WK OB Nitroglycerin Neutralizer Required: No Is patient in pain?: No Allergies No Known Allergies Allergy (Verified 02/11/25 09:31) Medications ?Medication ?Instructions ?Recorded ?Confirmed ?Type PNV 153-FA 400 mcg-om3 35 mg-dha tab PO 08/01/2402/11 History 25 mg-epa 5 mg-fish oil chew tablet sertraline 50 mg tablet 50 mg PO QDAY 08/01/2402/11 History Last Menstrual Period: 06/06/24 Zika: Zika virus screening: Negative : No PFSH PFSH Medical History Pre-eclampsia Family History Grandmother Cancer Mets to brain, lung, bone Breast cancer Paternal Social History adopted: No household members: spouse and children housing: house number of children: 1 current occupational status: employed current occupation: [employer] pets and animals: Yes (Avoid litterbox) pets and animals: cat(s) history of recent travel: No sexually active: Yes Smoking Status: Never smoker alcohol intake: current alcohol intake frequency: holidays/special occasions only details: not while substance use type: does not use well-balanced diet: daily or most days caffeine: No eating out: rarely or never during the past year weight has: decreased > 10 lbs what type of physical activity do you participate in: none daniel/denominational: None seatbelt use: always do you feel safe at home: Yes 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 Date Name GA/Weeks Outcome Route Bth Weight Infant Gen Labor Lgth Anesthesia Del Locatn Provider FOB 05/27/22 Radha 40 live - full term Female epid ural [facility] Antonio Delivery Date: 05/27/22 Last Updated by: Petty WALKER 40w IOL Pre E HPI 34 WK OB Details: SPRING BURR is a 24 year old who presents for routine OB visit. OB Visit DOMENICO Calculator Estimated Delivery Date Method Current WG Current Estimate 03/16/25 Ultrasound #1 35w 2d Other Estimates 03/13/25 LMP (Certain) 35w 5d Expected Delivery Route/Plan Labor Preferences- CB/BF classes:no labor support person: Antonio labor intervention preferences: [] pain management options preferred: epidural if requested cut cord/dad catch: yes : yes PP control planned: discussed discussed possible routes of delivery and associated risks: [] special requests: [] Specific Issue/Plans Covid status: [] Flu vaccine: declined Tdap vaccine: given Rhogam: na LARC form signed: yes Problem list reviewed and updated with the most current plan of care details and appropriate orders placed. Relevant counseling for the gestational age provided. Continue routine care and follow up unless otherwise noted in visit notes/problem list details Initial Weight: 163 lb Date -?-?-?-?-?-?-?-?-?-?-?-?- EGA Weight BP Urine Prot -?-?-?-?-?-?-?-?-?-?-?-?- Glucose FHR FuHt Pres Dilation -?-?-?-?-?-?-?-?-?-?-?-?- Effaced St Visit Note 08/04/24 -?-?-?-?-?-?-?-?-?-?-?-?- 8w 0d 162 lb 2 oz (-14 oz) 123/80 -?-?-?-?-?-?-?-?-?-?-?-?- 165 -?-?-?-?-?--?-?-?-?-?-?-?- SM- CRL cons wit h LMP measuring 8w3d SM- CRL cons with LMP measur ing 8w0d 09/01/24 -?-?-?-?-?-?-?-?-?-?-?-?- 12w 0d 163 lb (+0 oz) 106/67 Negative -?-?-?-?-?-?-?-?-?-?-?-?- Negative 157 -?-?-?-?-?-?-?-?-?-?-?-?- KW- vb/cramping. anatomy US ordered 10/02/24 -?-?-?-?-?-?-?-?-?-?-?-?- 16w 3d 164 lb 2 oz (+1 lb 2 oz) 110/72 Negative -?-?-?-?-?-?-?-?-?-?-?-?- Negative 150 -?-?-?-?-?-?-?--?-?-?-?-?- SM- no vbc rampi ng 11/05/24 -?-?-?-?-?-?-?-?-?-?-?-?- 21w 2d 174 lb 2 oz (+11 lb 2 oz) 104/65 Negative -?-?-?-?-?--?-?-?-?-?-?-?- Negative 145 -?-?-?-?-?-?-?-?-?-?-?-?- KW- no vb/addie ng. good fm. US reviewed 12/05/24 -?-?-?-?-?-?-?-?-?-?-?-?- 25w 4d 181 lb 6 oz (+18 lb 6 oz) 106/71 Negative -?-?-?-?-?-?-?-?-?-?-?-?- Negative 130 26 -?-?-?-?-?-?-?-?-?-?-?-?- KW- no vb/lof/ct x. good fm has been having headaches and dizzy spells. pre e labs today and compression hose 01/02/25 -?-?-?-?-?-?-?-?-?-?-?-?- 29w 4d 189 lb 4 oz (+26 lb 4 oz) 124/77 Negative -?-?-?-?-?-?-?-?-?-?-?-?- Negative 140 30 -?-?-?-?-?-?-?-?-?-?-?-?- KW- No vb/lof/ct x. good fm. headaches better. glucose labs today. 01/14/25 -?-?-?-?-?-?-?-?-?-?-?-?- 31w 2d 195 lb 4 oz (+32 lb 4 oz) 110/78 Negative -?-?-?-?-?-?-?-?-?-?-?-?- Negative 135 31 -?-?-?-?-?-?-?-?-?-?-?-?- MH-No Vb, LOF. G ood FM. Lar, tdap 01/26/25 -?-?-?-?-?-?-?-?-?-?-?-?- 33w 0d 196 lb (+33 lb) 111/75 Negative -?-?-?-?-?-?-?-?-?-?-?-?- Negative 150 33 -?-?-?-?-?-?-?-?-?-?-?-?- KW- no vb/lof/ct x. good fm. GBS at 36 weeks. 02/11/25 -?-?-?-?-?-?-?-?-?-?-?-?- 35w 2d 201 lb 6 oz (+38 lb 6 oz) 113/78 Negative -?-?-?-?-?-?-?-?-?-?-?-?- Negative 148 36 -?-?-?-?-?-?-?-?-?-?-?-?- JV-no lof, vagin al bleeding, or dec fm. ACOG First Trimester First Trimester: Desire for , Alcohol, Tobacco Cessation, Illicit/Recreational Drug/Substance Use, Intimate Partner Violence, Barriers to care, Unstable Housing, Communication Barriers, Environmental/Work Hazards, Anticipated Course of Care, Toxoplasmosis Precations, Use of Any medications, Sexual activity, Exercise, Dental Care, Sauna/Hot tub use, Seat Belt use, Childbirth classes/Hospital facilities, Travel, Indications for Ultrasound and Screening for Aneuploidy; Discussed Second Trimester Second Trimester: Signs and Symptoms of Labor, Selecting a care provider, Reproductive Life Planning & Contreception, Care Planning, Depression/Anxiety and Intimate Partner Violence; Discussed Tobacco Cessation Third Trimester Third Trimester: Pain Management Plans, Labor support person(s), Immediate Larc, Circumcision preference, Signs and Symptoms of Preeclampsia, Infant Feeding No , [place] Education and Family Medical Leave or Disability Forms; Discussed Tobacco Cessation Results POC Urinalysis 2 Dip (Clinic) Office Urine Glucose Negative Last Edit by Fadumo George on 02/11/25 09: 40 Office Urine Protein Negative Last Edit by Fadumo George on 02/11/25 09: 40 Coding Level of Care Code OB Routine Diagnoses 35 weeks gestation of Z3A.35 Weeks of gestation: 35 weeks FH: breast cancer Z80.3 Supervision of high risk in third trimester O09.93 Trimester: third trimester Hx of pre-eclampsia in prior , currently O09.299 Depression, unspecified depression type F32.A Depression Type: unspecified Assessment and Plan Assessment and Plan (1) : Status: Acute Qualifiers: Weeks of gestation: 35 weeks Qualified Code(s): Z3A.35 - 35 weeks gestation of Comment: declined afp NIPT & Carrier testing. nl anatomy (2) FH: breast cancer: Status: Acute Comment: Paternal Grandmother Breast Cancer (3) Supervision of high-risk : Status: Acute Qualifiers: Trimester: third trimester Qualified Code(s): O09.93 - Supervision of high risk , unspecified, third trimester Comment: PRR , DOMENICO 03/13/25, PC Radha, Antonio (4) Hx of pre-eclampsia in prior , currently : Status: Acute Comment: baseline labs ordered and recommend 81 mg asa at 14 weeks. (5) Depression: Status: Acute Qualifiers: Depression Type: unspecified Qualified Code(s): F32.A - Depression, unspecified Comment: sertraline increased to 100mg recommend counseling. stable Orders: Orders POC Urinalysis 2 Dip (Clinic) Today 02/11/25 0949 <Electronically signed by Cristina Gomez DO> Date _ Cristina Lockett DO Cosigner Signature: Date (if applicable) CC: ~ [facility] Work Phone: Progress note Author Zena Hernandez [facility] Note Date/Time February 12, 2025 11:[address] [facility] [address] [place] [address], [address] [place] [address] OFFICE VISIT Date of Service: 02/12/25 MR#: [id number] Acct: [id number] Name: SPRING BURR Rep #: [id number] : 2000 Provider: FAWN Hernandez Age/Sex: 24/F Location: [facility] [place] Status: Signed Intake Vital Signs 02/11/25 09:50 02/12/25 11:13 Height 5 ft 8 in 5 ft 8 in Weight: 200 lb 8 oz BMI 30.4 BP 119/80 Intake Visit Reasons: ROM check Chief Complaint: ROM Check Nitroglycerin Neutralizer Required: No Is patient in pain?: No Allergies No Known Allergies Allergy (Verified 02/12/25 11:11) Medications ?Medication ?Instructions ?Recorded ?Confirmed ?Type PNV 153-FA 400 mcg-om3 35 mg-dha tab PO 08/01/2402/12 History 25 mg-epa 5 mg-fish oil chew tablet sertraline 50 mg tablet 50 mg PO QDAY 08/01/2402/12 History Last Menstrual Period: 06/06/24 : No Have you fallen in the past year?: No PFSH PFSH Medical History Pre-eclampsia Family History Grandmother Cancer Mets to brain, lung, bone Breast cancer Paternal Social History adopted: No household members: spouse and children housing: house number of children: 1 current occupational status: employed current occupation: [employer] pets and animals: Yes (Avoid litterbox) pets and animals: cat(s) history of recent travel: No sexually active: Yes Smoking Status: Never smoker alcohol intake: current alcohol intake frequency: holidays/special occasions only details: not while substance use type: does not use well-balanced diet: daily or most days caffeine: No eating out: rarely or never during the past year weight has: decreased > 10 lbs what type of physical activity do you participate in: none danile/denominational: None seatbelt use: always do you feel safe at home: Yes additional social history: Antonio 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 Date Name GA/Weeks Outcome Route Bth Weight Gen Labor Lgth Anesthesia Del Locatn Provider FOB 05/27/22 Radha 40 live - full term Female epid ural [facility] SM Antonio Delivery Date: 05/27/22 Last Updated by: Petty Villar SM 40w IOL Pre E HPI ROM check Details: SPRING BURR is a 24 year old who presents for routine OB visit. OB Visit DOMENICO Calculator Estimated Delivery Date Method Current WG Current Estimate 03/16/25 Ultrasound #1 35w 3d Other Estimates 03/13/25 LMP (Certain) 35w 6d Expected Delivery Route/Plan Labor Preferences- CB/BF classes:no labor support person: Antonio labor intervention preferences: [] pain management options preferred: epidural if requested cut cord/dad catch: yes : yes PP control planned: discussed discussed possible routes of delivery and associated risks: [] special requests: [] Specific Issue/Plans Covid status: [] Flu vaccine: declined Tdap vaccine: given Rhogam: na LARC form signed: yes Problem list reviewed and updated with the most current plan of care details and appropriate orders placed. Relevant counseling for the gestational age provided. Continue routine care and follow up unless otherwise noted in visit notes/problem list details Initial Weight: 163 lb Date -?-?-?-?-?-?-?-?-?-?-?-?- EGA Weight BP Urine Prot -?-?-?-?-?-?-?-?-?-?-?-?- Glucose FHR FuHt Pres Dilation -?-?-?-?-?-?-?-?-?-?-?-?- Effaced St Visit Note 08/04/24 -?-?-?-?-?-?-?-?-?-?-?-?- 8w 0d 162 lb 2 oz (-14 oz) 123/80 -?-?-?-?-?-?-?-?-?-?-?-?- 165 -?-?-?-?-?-?-?-?-?-?-?-?- SM- CRL cons wit h LMP measuring 8w3d SM- CRL cons with LMP measur ing 8w0d 09/01/24 -?-?-?-?-?-?-?-?-?-?-?-?- 12w 0d 163 lb (+0 oz) 106/67 Negative -?-?-?-?-?-?-?-?-?-?-?-?- Negative 157 -?-?-?-?-?-?-?-?-?-?-?-?- KW- vb/cramping. anatomy US ordered 10/02/24 -?-?-?-?-?-?-?-?-?-?-?-?- 16w 3d 164 lb 2 oz (+1 lb 2 oz) 110/72 Negative -?-?-?-?-?-?-?-?-?-?-?-?- Negative 150 -?-?-?-?-?-?-?-?-?-?-?-?- SM- no vbc rampi ng 11/05/24 -?-?-?-?-?-?-?-?-?-?-?-?- 21w 2d 174 lb 2 oz (+11 lb 2 oz) 104/65 Negative -?-?-?-?-?-?-?-?-?-?-?-?- Negative 145 -?-?-?-?-?-?-?-?-?-?-?-?- KW- no vb/crampi ng. good fm. US reviewed 12/05/24 -?-?-?-?-?-?-?-?-?-?-?-?- 25w 4d 181 lb 6 oz (+18 lb 6 oz) 106/71 Negative -?-?-?-?-?-?-?-?-?-?-?-?- Negative 130 26 -?-?-?-?-?-?-?-?-?-?-?-?- KW- no vb/lof/ct x. good fm has been having headaches and dizzy spells. pre e labs today and compression hose 01/02/25 -?-?-?-?-?-?-?-?-?-?-?-?- 29w 4d 189 lb 4 oz (+26 lb 4 oz) 124/77 Negative -?-?-?-?-?-?-?-?-?-?--?-?- Negative 140 30 -?-?-?-?-?-?-?-?-?-?-?-?- KW- No vb/lof/ct x. good fm. headaches better. glucose labs today. 01/14/25 -?-?-?-?-?-?-?-?-?-?-?-?- 31w 2d 195 lb 4 oz (+32 lb 4 oz) 110/78 Negative -?-?-?-?-?-?-?-?-?-?-?-?- Negative 135 31 -?-?-?-?-?-?-?-?-?-?-?-?- MH-No Vb, LOF. G ood FM. Larc, tdap 01/26/25 -?-?-?-?-?-?-?-?-?-?-?-?- 33w 0d 196 lb (+33 lb) 111/75 Negative -?-?-?-?-?-?-?-?-?-?-?-?- Negative 150 33 -?-?-?-?-?-?-?-?-?-?-?-?- KW- no vb/lof/ct x. good fm. GBS at 36 weeks. 02/11/25 -?-?-?-?-?-?-?-?-?-?-?-?- 35w 2d 201 lb 6 oz (+38 lb 6 oz) 113/78 Negative -?-?-?-?-?-?-?-?-?-?-?-?- Negative 148 36 -?-?-?-?-?-?-?-?-?-?-?-?- JV-no lof, vagin al bleeding, or dec fm. 02/12/25 -?-?-?-?-?-?-?-?-?-?-?-?- 35w 3d 200 lb 8 oz (+37 lb 8 oz) 119/80 Negative -?-?-?-?-?-?-?-?-?-?-?-?- Negative 135 36 -?-?-?-?-?-?-?-?-?-?-?-?- KW- work in for possible ROM. cramping since yesterday and reports feeling wet since then. good fm. ROM and GBS today. PUSHPA by AARON- KW- work in for possible ROM . cramping since yesterday and reports feeling wet since then. good fm. ROM and GBS today. PUSHPA by AARON- Sheyla. ACOG First Trimester First Trimester: Desire for , Alcohol, Tobacco Cessation, Illicit/Recreational Drug/Substance Use, Intimate Partner Violence, Barriers to care, Unstable Housing, Communication Barriers, Environmental/Work Hazards, Anticipated Course of Care, Toxoplasmosis Precations, Use of Any medications, Sexual activity, Exercise, Dental Care, Sauna/Hot tub use, Seat Belt use, Childbirth classes/Hospital facilities, Travel, Indications for Ultrasound and Screening for Aneuploidy; Discussed Second Trimester Second Trimester: Signs and Symptoms of Labor, Selecting a care provider, Reproductive Life Planning & Contreception, Care Planning, Depression/Anxiety and Intimate Partner Violence; Discussed Tobacco Cessation Third Trimester Third Trimester: Pain Management Plans, Labor support person(s), Immediate Larc, Circumcision preference, Signs and Symptoms of Preeclampsia, Infant Feeding No , Orange Education and Family Medical Leave or Disability Forms; Discussed Tobacco Cessation ROS Const Reports system reviewed and no additional complaints, except as documented Eyes Reports system reviewed and no additional complaints, except as documented ENT Reports system reviewed and no additional complaints, except as documented Card Reports system reviewed and no additional complaints, except as documented Resp Reports system reviewed and no additional complaints, except as documented GI Reports system reviewed and no additional complaints, except as documented, Denies nausea and Denies vomiting Reports system reviewed and no additional complaints, except as documented Musc Reports system reviewed and no additional complaints, except as documented Skin/Breast Reports system reviewed and no additional complaints, except as documented Neuro Yes system reviewed and no additional complaints, except as documented Psych Reports system reviewed and no additional complaints, except as documented Endo Reports system reviewed and no additional complaints, except as documented Prosper/Lymph Reports system reviewed and no additional complaints, except as documented Aller/Immun Reports system reviewed and no additional complaints, except as documented Exam Const General: cooperative, healthy appearing and no acute distress Orientation: alert, awake and oriented x3 Neck Neck: normal visual inspection and full ROM Resp Effort & Inspection: normal respiratory effort, able to speak in complete sentences and symmetric chest movement GI Inspection: normal to inspection Palpation: soft and other Other: gravid Skin General: no rashes or lesions noted Neuro General: patient alert, patient awake and patient oriented x3 Cognition: normal cognition Speech: speech normal Gait: normal gait Motor: muscle tone normal throughout Extrem General: normal to inspection and full ROM Psych Appearance: grossly normal Mental Status: mental status grossly normal Mood: congruent mood Affect: normal affect Speech and Movement: speech and movement normal Attitude: cooperative Thought Process: normal Thought Content: normal Judgment: judgment good Results POC Urinalysis 2 Dip (Clinic) Office Urine Glucose Negative Last Edit by Christen Ye on 02/12/25 11:26 Office Urine Protein Negative Last Edit by Christen Ye on 02/12/25 11:26 Coding Level of Care Code Off vis,est,level 3 Diagnoses 35 weeks gestation of Z3A.35 Weeks of gestation: 35 weeks FH: breast cancer Z80.3 Supervision of high risk in third trimester O09.93 Trimester: third trimester Hx of pre-eclampsia in prior , currently O09.299 Depression, unspecified depression type F32.A Depression Type: unspecified Assessment and Plan Assessment and Plan (1) : Status: Acute Qualifiers: Weeks of gestation: 35 weeks Qualified Code(s): Z3A.35 - 35 weeks gestation of Comment: declined afp NIPT & Carrier testing. nl anatomy (2) FH: breast cancer: Status: Acute Comment: Paternal Grandmother Breast Cancer (3) Supervision of high-risk : Status: Acute Qualifiers: Trimester: third trimester Qualified Code(s): O09.93 - Supervision of high risk , unspecified, third trimester Comment: PRR , DOMENICO 03/13/25, PC Radha, Antonio (4) Hx of pre-eclampsia in prior , currently : Status: Acute Comment: baseline labs ordered and recommend 81 mg asa at 14 weeks. (5) Depression: Status: Acute Qualifiers: Depression Type: unspecified Qualified Code(s): F32.A - Depression, unspecified Comment: sertraline increased to 100mg recommend counseling. stable Orders: Orders (ROM) Rupture Of Membranes Today O09.93 - Supervision of high risk , unspecified, third trimester, Z3A.35 - 35 weeks gestation of POC Urinalysis 2 Dip (Clinic) Today Plan Details Additional Comments: ACOG trimester education reviewed and updated. see problem list details for updated plan management information and see below for orders placed at this visit. GA appropriate handout given. Clinical Quality Measures Falls Risk Screening/Assistive Devices Have you fallen in the past year?: No 02/12/25 1154 <Electronically signed by Zena agudelo CNM> Date _ Zena Hernandez CNM Cosigner Signature: Date (if applicable) CC: ~ [facility] Work Phone: Reason for referral (narrative)No reason for referral information availableWMer[facility] Work Phone: Summary Purpose Family History No Family History Records Found Relationship Condition Age at Onset Recorded Date/T faby grandmother Malignant neoplasm Unknown Malignant neoplasm of breast Unknown Advance Directives No Advanced Directives Records Found Advance Directive Response Recorded Date/ Time Living Will No May 26 022 4:10am Power of Rubbish Collector No May 26, 2022 4:10am Chief Complaint and Reason for Visit Chief Complaint 12 WK OB 16WKS 21WK OB 25WK OB 28WK OB / GLUCOSE Reason for Visit Supervision of normal first Supervision of normal first Supervision of normal first Supervision of normal first [id number] Supervision of normal first Chief Complaint 12 WK OB 16WKS 21WK OB 25WK OB 28WK OB / GLUCOSE Reason for Visit Supervision of normal first Supervision of normal first Supervision of normal first Supervision of normal first [id number] Supervision of normal first Chief Complaint 21WK OB 25WK OB 28WK OB / GLUCOSE 30WK OB 32WK OB 34WK OB 37WK OB Reason for Visit Supervision of normal first Supervision of normal first Supervision of normal first [id number] Supervision of normal first [id number] Abnormal glucose affecting Supervision of normal first Abnormal glucose affecting Supervision of normal first Abnormal glucose affecting Supervision of normal first Chief Complaint 25WK OB 28WK OB / GLUCOSE 30WK OB 32WK OB 34WK OB 37WK OB 38WK OB 39WK OB 40WK OB 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 DELIVERY Reason for Visit Supervision of normal first [id number] Supervision of normal first [id number] Supervision of normal first Abnormal glucose affecting Supervision of normal first Abnormal glucose affecting Supervision of normal first Abnormal glucose affecting Supervision of normal first Abnormal glucose affecting Supervision of normal first Abnormal glucose affecting Supervision of normal first Abnormal glucose affecting Supervision of normal first Preeclampsia, severe Vaginal delivery Abnormal glucose affecting Gestational hypertension Supervision of normal first Chief Complaint Admit Date 13 wk OB September 01, 2024 2:04pm 16 WK OB October 02, 2024 9 :31am 20 WK OB November 05, 2024 9:04am 24 WK OB December 05, 2024 10: 28am Reason for Visit Admit Date Depression September 01, 2024 2:04pm FH: breast cancer September 01, 2024 2:04pm Hx of pre-eclampsia in prior , currently September 01, 2024 2:04pm September 01, 2024 2:04pm Supervision of high-risk Decem 2023 2:04pm Depression October 02, 2024 9 :31am FH: breast cancer October 02, 2024 9 :31am Hx of pre-eclampsia in prior , currently October 02, 2024 9:31am October 02, 2024 9 :31am Supervision of high-risk Janua 2024 9:31am Depression November 05, 2024 9:04am FH: breast cancer November 05, 2024 9:04am Hx of pre-eclampsia in prior , currently November 05, 2024 9:04am November 05, 2024 9:04am Supervision of high-risk Febru kasie 2024 9:04am Depression December 05, 2024 10: 28am FH: breast cancer December 05, 2024 10: 28am Hx of pre-eclampsia in prior , currently December 05, 2024 10:28am December 05, 2024 10: 28am Supervision of high-risk December 05, 2024 10:28am Chief Complaint Admit Date 20 WK OB November 05, 2024 9:04am 24 WK OB December 05, 2024 10: 28am 28 WK OB/GLUCOSE January 02, 2025 1:0 0pm 30 WK OB January 14, 2025 9:5 1am 32 WK OB January 26, 2025 9:19a m 34 WK OB February 11, 2025 9:29a m Reason for Visit Admit Date Depression November 05, 2024 9:04am FH: breast cancer November 05, 2024 9:04am Hx of pre-eclampsia in prior , currently November 05, 2024 9:04am November 05, 2024 9:04am Supervision of high-risk Febru kasie 2024 9:04am Depression December 05, 2024 10: 28am FH: breast cancer December 05, 2024 10: 28am Hx of pre-eclampsia in prior , currently December 05, 2024 10:28am December 05, 2024 10: 28am Supervision of high-risk December 05, 2024 10:28am Depression January 02, 2025 1:0 0pm FH: breast cancer January 02, 2025 1:0 0pm Hx of pre-eclampsia in prior , currently January 02, 2025 1:00pm January 02, 2025 1:0 0pm Supervision of high-risk January 02, 2025 1:00pm Depression January 14, 2025 9:5 1am FH: breast cancer January 14, 2025 9:5 1am Hx of pre-eclampsia in prior , currently January 14, 2025 9:51am January 14, 2025 9:5 1am Supervision of high-risk January 14, 2025 9:51am Depression January 26, 2025 9:19a m FH: breast cancer January 26, 2025 9:19a m Hx of pre-eclampsia in prior , currently January 26, 2025 9:19am January 26, 2025 9:19a m Supervision of high-risk January 152024 9:19am Depression February 11, 2025 9:29a m FH: breast cancer February 11, 2025 9:29a m Hx of pre-eclampsia in prior , currently February 11, 2025 9:29am February 11, 2025 9:29a m Supervision of high-risk January 162024 9:29am Chief Complaint Admit Date 20 WK OB November 05, 2024 9:04am 24 WK OB December 05, 2024 10: 28am 28 WK OB/GLUCOSE January 02, 2025 1:0 0pm 30 WK OB January 14, 2025 9:5 1am 32 WK OB January 26, 2025 9:19a m 35wk ob February 11, 2025 9:29a m ROM check February 12, 2025 11:01 am Reason for Visit Admit Date Depression November 05, 2024 9:04am FH: breast cancer November 05, 2024 9:04am Hx of pre-eclampsia in prior , currently November 05, 2024 9:04am November 05, 2024 9:04am Supervision of high-risk Febru kasie 2024 9:04am Depression December 05, 2024 10: 28am FH: breast cancer December 05, 2024 10: 28am Hx of pre-eclampsia in prior , currently December 05, 2024 10:28am December 05, 2024 10: 28am Supervision of high-risk December 05, 2024 10:28am Depression January 02, 2025 1:0 0pm FH: breast cancer January 02, 2025 1:0 0pm Hx of pre-eclampsia in prior , currently January 02, 2025 1:00pm January 02, 2025 1:0 0pm Supervision of high-risk January 02, 2025 1:00pm Depression January 14, 2025 9:5 1am FH: breast cancer January 14, 2025 9:5 1am Hx of pre-eclampsia in prior , currently January 14, 2025 9:51am January 14, 2025 9:5 1am Supervision of high-risk January 14, 2025 9:51am Depression January 26, 2025 9:19a m FH: breast cancer January 26, 2025 9:19a m Hx of pre-eclampsia in prior , currently January 26, 2025 9:19am January 26, 2025 9:19a m Supervision of high-risk January 152024 9:19am Depression February 11, 2025 9:29a m FH: breast cancer February 11, 2025 9:29a m Hx of pre-eclampsia in prior , currently February 11, 2025 9:29am February 11, 2025 9:29a m Supervision of high-risk January 162024 9:29am Depression February 12, 2025 11:01 am FH: breast cancer February 12, 2025 11:01 am Hx of pre-eclampsia in prior , currently February 12, 2025 11:01am February 12, 2025 11:01 am Supervision of high-risk January 162024 11:01am Chief Complaint Admit Date 20 WK OB November 05, 2024 9:04am 24 WK OB December 05, 2024 10: 28am 28 WK OB/GLUCOSE January 02, 2025 1:0 0pm 30 WK OB January 14, 2025 9:5 1am 32 WK OB January 26, 2025 9:19a m 35wk ob February 11, 2025 9:29a m ROM check February 12, 2025 11:01 am 36wk ob February 16, 2025 1:42p m Reason for Visit Admit Date Depression November 05, 2024 9:04am FH: breast cancer November 05, 2024 9:04am Hx of pre-eclampsia in prior , currently November 05, 2024 9:04am November 05, 2024 9:04am Supervision of high-risk Febru kasie 2024 9:04am Depression December 05, 2024 10: 28am FH: breast cancer December 05, 2024 10: 28am Hx of pre-eclampsia in prior , currently December 05, 2024 10:28am December 05, 2024 10: 28am Supervision of high-risk December 05, 2024 10:28am Depression January 02, 2025 1:0 0pm FH: breast cancer January 02, 2025 1:0 0pm Hx of pre-eclampsia in prior , currently January 02, 2025 1:00pm January 02, 2025 1:0 0pm Supervision of high-risk January 02, 2025 1:00pm Depression January 14, 2025 9:5 1am FH: breast cancer January 14, 2025 9:5 1am Hx of pre-eclampsia in prior , currently January 14, 2025 9:51am January 14, 2025 9:5 1am Supervision of high-risk January 14, 2025 9:51am Depression January 26, 2025 9:19a m FH: breast cancer January 26, 2025 9:19a m Hx of pre-eclampsia in prior , currently January 26, 2025 9:19am January 26, 2025 9:19a m Supervision of high-risk January 152024 9:19am Depression February 11, 2025 9:29a m FH: breast cancer February 11, 2025 9:29a m Hx of pre-eclampsia in prior , currently February 11, 2025 9:29am February 11, 2025 9:29a m Supervision of high-risk January 162024 9:29am Depression February 12, 2025 11:01 am FH: breast cancer February 12, 2025 11:01 am Hx of pre-eclampsia in prior , currently February 12, 2025 11:01am February 12, 2025 11:01 am Supervision of high-risk January 162024 11:01am Depression February 16, 2025 1:42p m FH: breast cancer February 16, 2025 1:42p m Hx of pre-eclampsia in prior , currently February 16, 2025 1:42pm February 16, 2025 1:42p m Supervision of high-risk February 16, 2025 1:42pm Chief Complaint Admit Date 20 WK OB November 05, 2024 9:04am 24 WK OB December 05, 2024 10: 28am 28 WK OB/GLUCOSE January 02, 2025 1:0 0pm 30 WK OB January 14, 2025 9:5 1am 32 WK OB January 26, 2025 9:19a m 35wk ob February 11, 2025 9:29a m ROM check February 12, 2025 11:01 am 36wk ob February 16, 2025 1:42p m 37wk ob February 24, 2025 8:07 am Reason for Visit Admit Date Depression November 05, 2024 9:04am FH: breast cancer November 05, 2024 9:04am Hx of pre-eclampsia in prior , currently November 05, 2024 9:04am November 05, 2024 9:04am Supervision of high-risk Febru kasie 2024 9:04am Depression December 05, 2024 10: 28am FH: breast cancer December 05, 2024 10: 28am Hx of pre-eclampsia in prior , currently December 05, 2024 10:28am December 05, 2024 10: 28am Supervision of high-risk December 05, 2024 10:28am Depression January 02, 2025 1:0 0pm FH: breast cancer January 02, 2025 1:0 0pm Hx of pre-eclampsia in prior , currently January 02, 2025 1:00pm January 02, 2025 1:0 0pm Supervision of high-risk January 02, 2025 1:00pm Depression January 14, 2025 9:5 1am FH: breast cancer January 14, 2025 9:5 1am Hx of pre-eclampsia in prior , currently January 14, 2025 9:51am January 14, 2025 9:5 1am Supervision of high-risk January 14, 2025 9:51am Depression January 26, 2025 9:19a m FH: breast cancer January 26, 2025 9:19a m Hx of pre-eclampsia in prior , currently January 26, 2025 9:19am January 26, 2025 9:19a m Supervision of high-risk January 152024 9:19am Depression February 11, 2025 9:29a m FH: breast cancer February 11, 2025 9:29a m Hx of pre-eclampsia in prior , currently February 11, 2025 9:29am February 11, 2025 9:29a m Supervision of high-risk January 162024 9:29am Depression February 12, 2025 11:01 am FH: breast cancer February 12, 2025 11:01 am Hx of pre-eclampsia in prior , currently February 12, 2025 11:01am February 12, 2025 11:01 am Supervision of high-risk January 162024 11:01am Depression February 16, 2025 1:42p m FH: breast cancer February 16, 2025 1:42p m Hx of pre-eclampsia in prior , currently February 16, 2025 1:42pm February 16, 2025 1:42p m Supervision of high-risk February 16, 2025 1:42pm Depression February 24, 2025 8:07 am FH: breast cancer February 24, 2025 8:07 am Hx of pre-eclampsia in prior , currently February 24, 2025 8:07am February 24, 2025 8:07 am Supervision of high-risk February 24, 2025 8:07am Additional Source Comments INFORMATION SOURCE (unrecogn ized section and content) DATE CREATED AUTHOR 03/29/2018 [facility] DATE CREATED AUTHOR AUTHOR'S ORGANIZ ATION 10/25/2024 [facility] DATE CREATED AUTHOR AUTHOR'S ORGANIZ ATION 02/25/2025 [facility] Goals (unrecognized section and content) Goals may be documented in a n alternate sectionGoals may be documented in an alternate sectionGoals may be documented in an alternate sectionGoals may be documented in an alternate sectionGoals may be documented in an alternate sectionGoals may be documented in an alternate sectionGoals may be documented in an alternate sectionGoals may be documented in an alternate sectionGoals may be documented in an alternate sectionGoals may be documented in an alternate section Care Teams (unrecognized sec tion and content) Team Status: Active Member Role Status Dates No Primary Care Physician Primary Care Provider Active Team Status: Inactive Member Role Status Dates No Primary Care Physician Primary Care Provider Active Start: September 01, 2024 End: September 01, 2024 No Primary Care Physician Referring Provider Active Start: September 01, 2024 End: September 01, 2024 Zena Hernandez CNM Attending Provider Active S tart: September 01, 2024 End: September 01, 2024 Team Status: Inactive Member Role Status Dates No Primary Care Physician Primary Care Provider Active Start: October 02, 2024 End: October 02, 2024 No Primary Care Physician Referring Provider Active Start: October 02, 2024 End: October 02, 2024 Dr. Hina Elliott MD Attending Provider Active Start: October 02, 2024 End: October 02, 2024 Team Status: Inactive Member Role Status Dates No Primary Care Physician Primary Care Provider Active Start: November 05, 2024 End: November 05, 2024 No Primary Care Physician Referring Provider Active Start: November 05, 2024 End: November 05, 2024 Zena Hernandez CNM Attending Provider Active S tart: November 05, 2024 End: November 05, 2024 Team Status: Inactive Member Role Status Dates No Primary Care Physician Primary Care Provider Active Start: December 05, 2024 End: December 05, 2024 No Primary Care Physician Referring Provider Active Start: December 05, 2024 End: December 05, 2024 Zena Hernandez CNM Attending Provider Active S tart: December 05, 2024 End: December 05, 2024 Team Status: Inactive Member Role Status Dates No Primary Care Physician Primary Care Provider Active Start: December 05, 2024 End: December 05, 2024 Zena Hernandez CNM Attending Provider Active S tart: December 05, 2024 End: December 05, 2024 Zena Hernandez CNM Referring Provider Active S tart: December 05, 2024 End: December 05, 2024 Team Status: Inactive Member Role Status Dates No Primary Care Physician Primary Care Provider Active Start: January 02, 2025 End: January 02, 2025 No Primary Care Physician Referring Provider Active Start: January 02, 2025 End: January 02, 2025 Zena Hernandez CNM Attending Provider Active S tart: January 02, 2025 End: January 02, 2025 Team Status: Inactive Member Role Status Dates No Primary Care Physician Primary Care Provider Active Start: January 02, 2025 End: January 02, 2025 Zena Hernandez CNM Attending Provider Active S tart: January 02, 2025 End: January 02, 2025 Zena Hernandez CNM Referring Provider Active S tart: January 02, 2025 End: January 02, 2025 Team Status: Inactive Member Role Status Dates No Primary Care Physician Primary Care Provider Active Start: January 14, 2025 End: January 14, 2025 No Primary Care Physician Referring Provider Active Start: January 14, 2025 End: January 14, 2025 Thelma Infante NP, MEDICAL PRACTICE ASSISTANT-C Attending Provider Active Start: January 14, 2025 End: January 14, 2025 Team Status: Inactive Member Role Status Dates No Primary Care Physician Primary Care Provider Active Start: January 26, 2025 End: January 26, 2025 No Primary Care Physician Referring Provider Active Start: January 26, 2025 End: January 26, 2025 Zena Hernandez CNM Attending Provider Active S tart: January 26, 2025 End: January 26, 2025 Team Status: Inactive Member Role Status Dates No Primary Care Physician Primary Care Provider Active Start: February 11, 2025 End: February 11, 2025 No Primary Care Physician Referring Provider Active Start: February 11, 2025 End: February 11, 2025 Dr. Cristina Lockett , Attending Provider Activ e Start: February 11, 2025 End: February 11, 2025 Team Status: Inactive Member Role Status Dates No Primary Care Physician Primary Care Provider Active Start: February 12, 2025 End: February 12, 2025 No Primary Care Physician Referring Provider Active Start: February 12, 2025 End: February 12, 2025 Zena Hernandez CNM Attending Provider Active S tart: February 12, 2025 End: February 12, 2025 Team Status: Active Member Role Status Dates No Primary Care Physician Primary Care Provider Active Start: February 12, 2025 Zena Hernandez CNM Attending Provider Active S tart: February 12, 2025 Zena Hernandez CNM Referring Provider Active S tart: February 12, 2025 Team Status: Inactive Member Role Status Dates No Primary Care Physician Primary Care Provider Active Start: February 16, 2025 End: February 16, 2025 No Primary Care Physician Referring Provider Active Start: February 16, 2025 End: February 16, 2025 Zena Hernandez CNM Attending Provider Active S tart: February 16, 2025 End: February 16, 2025 Team Status: Inactive Member Role Status Dates No Primary Care Physician Primary Care Provider Active Start: February 12, 2025 End: February 12, 2025 Zena Hernandez CNM Attending Provider Active S tart: February 12, 2025 End: February 12, 2025 Zena Hernandez CNM Referring Provider Active S tart: February 12, 2025 End: February 12, 2025 Team Status: Active Member Role Status Dates No Primary Care Physician Primary Care Provider Active Start: February 16, 2025 Zena Hernandez CNM Attending Provider Active S tart: February 16, 2025 Zena Hernandez CNM Referring Provider Active S tart: February 16, 2025 Team Status: Inactive Member Role Status Dates No Primary Care Physician Primary Care Provider Active Start: February 16, 2025 End: February 16, 2025 Zena Hernandez CNM Attending Provider Active S tart: February 16, 2025 End: February 16, 2025 Zena Hernandez CNM Referring Provider Active S tart: February 16, 2025 End: February 16, 2025 Team Status: Inactive Member Role Status Dates No Primary Care Physician Primary Care Provider Active Start: February 24, 2025 End: February 24, 2025 No Primary Care Physician Referring Provider Active Start: February 24, 2025 End: February 24, 2025 Thelma Infante NP, MEDICAL PRACTICE ASSISTANT-C Attending Provider Active Start: February 24, 2025 End: February 24, 2025 FOR RECORDS PERTAINING TO PATIENTS WHO ARE OR HAVE BEEN ENROLLED IN A CHEMICAL DEPENDENCY/SUBSTANCEABUSE PROGRAM, SOME INFORMATION MAY BE OMITTED. This clinical summary was aggregated from multiple sources. Caution should be exercised in using it in the provision of clinical care. This summary normalizes information from multiple sources, and as a consequence, information in this document may materially change the coding, format and clinical context of patient data. In addition, data may be omitted in some cases. CLINICAL DECISIONS SHOULD BE BASED ON THE PRIMARY CLINICAL RECORDS. [facility] ID [facility]. provides no warranty or guarantee of the accuracy or completeness of information in this document.
[2025-03-04] MEDS: Lactated Ringers 1,000 ML 999 ML IV (06:34)
[2025-03-04] MEDS: fentaNYL-bupivacaine (epidural) 100 ML BAG EPIDURAL (08:01)
--- NOTE | 2025-03-04 09:37 | PCM.PN.BLA ---
Progress Note AROM clear fluid IUPC placed 6 cm dilated continue Pitocin per protocol status post epidural. Expectant management. Category 1 tracing
[2025-03-04] MEDS: Oxytocin 15 Units/NS 250ml 15 UNITS/250 ML IV.SOLN 83 UNITS IV (12:50)
--- NOTE | 2025-03-04 13:24 | EX.PCM.OBVAG ---
Assessment & Plan (1) : QUALIFIERS: Weeks of gestation: 37 weeks Qualified Code(s): Z3A.37 - 37 weeks gestation of COMMENT: declined afp NIPT & Carrier testing. nl anatomy , gbs neg (2) FH: breast cancer: COMMENT: Paternal Grandmother Breast Cancer (3) Supervision of high-risk : QUALIFIERS: Trimester: third trimester Qualified Code(s): O09.93 - Supervision of high risk , unspecified, third trimester COMMENT: PRR , DOMENICO 03/13/25, PC Chelita, Antonio (4) Hx of pre-eclampsia in prior , currently : COMMENT: baseline labs ordered and recommend 81 mg asa at 14 weeks. (5) Depression: QUALIFIERS: Depression Type: unspecified Qualified Code(s): F32.A - Depression, unspecified COMMENT: sertraline increased to 100mg recommend counseling. stable (6) Vaginal delivery: COMMENT: SM IOL pree boy desirae Maternal Data Information DOMENICO Calculator Estimated Delivery Date Method Current WG Current Estimate 03/16/25 Ultrasound #1 38w 2d Other Estimates 03/13/25 LMP (Certain) 38w 5d Vaginal Delivery Maternal Presentation Maternal Presentation: see assessment and plan Vaginal Delivery Information Procedure Performed: Spontaneous Vaginal Delivery Surgeon/Practitioner: Hina Vazquez Pre-Procedure Diagnosis: see assessment and plan Post-Procedure Diagnosis: same Type of anesthesia: Epidural Estimated Blood Loss: 300 Findings Description of procedure: Patient began pushing and delivered the head in the YARELY presentation. The head was delivered atraumatically and a loose nuchal cord ?1 was identified and easily reduced over the infant's head. The anterior and posterior shoulders delivered without complication followed by the rest of the infant and the was placed on the maternal abdomen. Delayed cord clamping was employed for approximately 60 seconds. Cord was clamped and cut and gentle traction was applied to the cord and the placenta delivered spontaneously immediately following it was noted to be intact with three-vessel cord. The perineum and vagina were inspected and was noted to have a second -degree laceration that was repaired in the usual fashion with 3-0 vicryl rapide . EBL was 300. Patient and tolerated delivery well. Presentation: Vertex Placental Delivery Description: Spontaneous Specimen collected: Yes Description of specimen(s) removed: placenta Habilitation Training Specialist supervisor tellers: No Post Vaginal Deli Medications given after delivery: Other (pitocin) Complication Complications: No Multi Select Codes Urinary/Genital Urinary/Genital CPT Codes: 11486 Vaginal Delivery [facility]
--- NOTE | 2025-03-04 13:25 | DCINST_ITS ---
Discharge Instructions Diet Discharge Diet: No restrictions DC O2, CPAP, BIPAP needs Home O2 Discharge instructions: No Dressing / Incision Discharge Activity: Return to Normal Activity, May Not Drive (while taking narcotic pain medications.) and May Shower May resume sexual activity in: 4-6 weeks Dressing / Incision Call your doctor if your incision/area has: Continuous Slow Oozing, Sudden Increased Bleeding, Increased Pain/ Swelling, Increased Redness and Foul Smelling Discharge Follow Up Care Please Follow Up With: Hina Vazquez MD When: Call [phone] to make an appointment with your doctor in 6 weeks. If you had elevated blood pressure or 4th degree laceration, you will need to be seen in 2 weeks. Test Results: Test results from this visit will be discussed in further detail at your follow- up appointment, if applicable. Discharge Plan Admission Admit Date/Time: 03/03/25 18:44 Attending Provider: Hina Vazquez Primary Care Provider: Care Physician,Nancy Primary Discharge Orders/Prescriptions Prescriptions: No Action PNV no.[id number] 400 mcg-35 mg- 25 mg-5 mg tablet,chewable 1 tab PO DAILY sertraline 50 mg tablet 75 mg PO QDAY aspirin [Adult Low Dose Aspirin] 81 mg tablet,delayed release (DR/EC) 81 mg PO DAILY Referrals / Follow Up: Care Physician,No Primary [Primary Care Provider] -
[2025-03-04] MEDS: Acetaminophen 500 MG Tablet 1000 MG PO (14:08)
[2025-03-04] MEDS: Senna/Docusate Sodium 1 Tablet PO (20:01)
[2025-03-05 04:07] VITALS: BP 116/71; PULSE 78; O2SAT 98
[2025-03-05 04:08] VITALS: BP 116/71; PULSE 82; RESP 16; TEMP 36.4; O2SAT 98
[2025-03-05 07:44] VITALS: BP 118/66; PULSE 78
[2025-03-05 07:46] VITALS: PULSE 72; O2SAT 99
[2025-03-05 07:50] VITALS: BP 118/66; PULSE 72; RESP 18; TEMP 36.6; O2SAT 100
[2025-03-05] MEDS: Naproxen 500 MG Tablet PO (11:18)
[2025-03-05] MEDS: Sertraline 50 MG Tablet 75 MG PO (11:19)
[2025-03-05] MEDS: Senna/Docusate Sodium 1 Tablet PO (11:20)
--- NOTE | 2025-03-05 11:49 | CASEMGMT ---
Social Work Assessment Labor and Delivery Unit Patient Address: [address] [place] [address], [place] [address] Phone number:[phone] Date of Referral: 03/03/25 Time of Referral:? 2113 Referred By: Dr. Trinh Date of Intervention: ??03/05/25 Time of Intervention:? 1019 Reason for Referral:? hx PPD Sw completed chart review and acknowledges social work consult due to maternal mental health history. Sw presented to bedside and introduced self to mother of baby, TOMAS Ceballos. Also present was father of baby, LINDA Alvarez. Sw explained reason for sw involvement and completed psychosocial assessment. History obtained from: medical records, MOB and SHIRA Household composition: Currently residing in the home is SHIRA MURDOCK and their two year old daughter, Chelita. Sharon baby to be included in residence when ready for discharge. Parents deny any problems or concerns with housing, reporting it is safe and secure. Patient's parent/guardian status:? ?COLLETTE and SHIRA have been together for 10 years after meeting each other in school. No concerns reported of domestic violence or intimate partner violence. This is second baby for parents together. Medical History: ?COLLETTE is 24 year old female who is 2, para 1- now 2 following labor and delivery of . COLLETTE received routine care during with [facility]. COLLETTE presented to hospital in active labor and delivered baby via vaginal delivery on 03/04/25 at 38 weeks gestation. Baby boy, named Yves Turner, was born weighing 7lb 1oz with apgars of 8 and 9 at one and five minutes of life, respectfully. COLLETTE is and supplementing. Baby will be followed by Dr. Gil. Educational Status:? 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 No problems with reading, learning or comprehension. Financial Status: Both parents are gainfully employed outside of the home. COLLETTE works for [employer] and SHIRA states that he works for the [employer]. Supplies:?? All necessary baby supplies obtained, including: car seat, safe sleep space, clothes, diapers and wipes. Childcare/Caregiver(s):? COLLETTE reports that typically parents are able to manage their schedules so that one of them is with their children, but maternal grandma is also their accounts collector when they need her to help. Transportation:?Both parents have their drivers license and reliable means of transportation. No barriers. ? Programs/Agencies Involved: ?Parents are not connected to any community resources that provide financial assistance as they are over income. ?? Children Services/Legal Issues:??No prior involvement with children services, no issues or concerns warranting referral to be made at this time. ? Behavioral Health Issues: ??Mental Health History:?Both parents report to having a mental health history. FOB has been diagnosed with anxiety and depression and is currently prescribed sertraline. MOB states that she has also been diagnosed with anxiety and depression and did struggle with some post depression after her daughter was born. MOB reports that she is also prescribed sertraline to help her manage her mental health symptoms. MOB states that after she had her daughter she was extremely anxious and then went through a brief period where she felt down. MOB states that she only experienced these symptoms for a brief period of time because she sought help/ treatment. MOB states that she is receptive to getting help because she wants to be the best person she can for her kids. Parents PCP is who prescribes their sertraline. ?? Substance Use History:?Parents deny substance use prior to and during . ? Family History:??Parents deny family history of substance use or significant mental health diagnoses. ??? Drug Screens: ?No drug screens o observed while completing chart review. ? Family/Social Stressors:? MOB denies any issues, concerns or stressors at this time. Support Systems: MOB identifies that her mom is her biggest support. Depression/Shaken Baby/Safe Sleeping:? Marylin discussed signs and symptoms of baby blues and depression with parents. FOB states that he would be able to recognize if MOB were struggling with her mental health, and would know how to help and support her. MOB states that since starting sertraline after her daughter was born two years ago she has felt a significant improvement with her mental health. MOB states that during her she felt like herself, was happy and denies feeling down, distant or anxious. MOB states that since baby has been born she has also felt happy, denies feeling sad or down. Sw educated parents on shaken baby prevention and ABCs of safe sleep, parents express understanding. ASSESSMENT:? MOB and baby admitted following labor and delivery of . MOB and FOB with mental health history positive for anxiety and depression, MOB also expressed some symptoms after her daughter was born two years ago. MOB states that experiencing those symptoms and seeing FOB's mental health improvement with medication really prompted her to look into help. MOB states that since starting sertraline she feels like herself and expresses that her anxiety and depression are much improved. MOB states that she has a lot of natural supports in place and feels comfortably talking to them or her OBGYN if she were to start to experience any mental health symptoms during this period. Parents have obtained all necessary baby supplies. MOB and FOB were both present and were receptive to meeting with sw. MOB was observed laying in bed comfortably and holding baby in loving any attentive manner. Also present was their two year old daughter, and FOB was attentive to her for the majority of sw assessment. Parents were open and talkative and conversation flowed naturally. PLAN:? No other services requested or indicated. MOB and baby to be discharged when medically ready. Parents were provided literature regarding: signs and symptoms of baby blues and mood and anxiety disorders, Help Me Grow, shaken baby prevention, ABCs of safe sleep and a list of county resources that are available for them should any needs present themselves. Joshua Gifford, SENIOR ELECTRICAL CONTROLS ENGINEER, [employer]ACER AND TIER
--- NOTE | 2025-03-05 14:57 | PN.OBGYN_ITS ---
Subjective Subjective Patient doing well without complaints. Tolerating PO. Ambulating and voiding without difficulty. Feeding well. Denies chest pain, shortness of breath, calf pain/swelling, fevers, chills, lightheadedness. Objective Data Objective Data Vital Signs: Vital Signs Temp Pulse Resp BP Pulse Ox O2 Del Method 97.9 F 72 18 118/66 100 Room Air 03/05/25 07:50 03/05/25 07:50 03/05/25 07:50 03/05/25 07:50 03/05/25 07:50 03/05/25 07:50 Oxygen Delivery Method Room Air Weight: 208 lb 5.389 oz Body Mass Index (BMI) 32.6 Intake & Output: Intake and Output for Last 24 Hours 03/03/25 03/04/25 03/05/25 23:59 23:59 23:59 Intake Total 508.46 / 508.46 2491.54 / 2491.54 Output Total 1050 / 1050 Balance 508.46 / 508.46 1441.54 / 1441.54 Lab / Micro Data 03/03/25 17:45 03/03/25 17:45 ROS Constitutional Constitutional: Denies chills, fatigue, fever(s), poor appetite or weakness Eyes Eyes: Denies blurry vision, change in vision, seeing flashes or spots in vision ENT HEENT: Denies dizziness, headache(s), loss taste/smell or sore throat Cardiovascular Cardiovascular: Denies chest pain, dizziness, dyspnea, irregular heart rhythm, palpitations or rapid heart rate Respiratory/Chest Respiratory/Chest: Denies chest tightness, cough, dyspnea or breast pain Gastrointestinal Gastrointestinal: Denies abdominal pain, constipation or vomiting Genitourinary Genitourinary: Denies dysuria or flank pain Musculoskeletal Musculoskeletal: Denies difficulty walking, joint pain, limited range of motion or numbness Neurologic Neurologic: Denies abnormal movements, abnormal speech, dizziness, numbness, seizure-like activity or syncope Psychiatric Psychiatric: Denies anxiety, behavioral changes, change in appetite, confusion, depression or suicidal thoughts Physical Exam Const alert, oriented x3 and no apparent distress General Appearance: cooperative and comfortable Resp normal respiratory effort Cardio regular rate GI normal to inspection, nondistended, normoactive bowel sounds GI Narrative: uterus is firm below umbilicus Palpation: soft Back/Spine no CVA tenderness and thoraco-lumbar ROM normal Extremity normal to inspection, no clubbing, cyanosis or edema, no calf tenderness and no pedal edema Psych mental status grossly normal, thought process normal, cooperative, affect normal, speech normal, activity/motor behavior normal, denies homicidal ideation and denies suicidal ideation Assessment & Plan (1) Vaginal delivery: COMMENT: SM IOL pree boy desirae PLAN: ok to dc to home today s/p PPD # 1 1. routine post delivery care 2. breast feeding- support given 3. rh positive 4. rubella immune (2) Headache in : (3) : QUALIFIERS: Weeks of gestation: 37 weeks Qualified Code(s): Z 3A.37 - 37 weeks gestation of COMMENT: declined afp NIPT & Carrier testing. nl anatomy , gbs neg (4) FH: breast cancer: COMMENT: Paternal Grandmother Breast Cancer (5) Supervision of high-risk : QUALIFIERS: Trimester: third trimester Qualified Code(s): O09.93 - Supervision of high risk , unspecified, third trimester COMMENT: PRR , DOMENICO 03/13/25, PC Chelita, Antonio (6) Hx of pre-eclampsia in prior , currently : COMMENT: baseline labs ordered and recommend 81 mg asa at 14 weeks. (7) Depression: QUALIFIERS: Depression Type: unspecified Qualified Code(s): F32.A - Depression, unspecified COMMENT: sertraline increased to 100mg recommend counseling. stable
== END 2025-03-05 13:35 | disposition home or self-care (01) | DRG 807 ==
LOC: WPOUT 18:50 → WP 18:50
PROVIDERS: Admitting Provider Obstetrics & Gynecology; Visit Provider Obstetrics & Gynecology
DX: O13.4 Gestational [pregnancy-induced] hypertension without significant proteinuria, complicating childbirth (principal); Z37.0 Single live birth; O99.344 Other mental disorders complicating childbirth; F32.A Depression, unspecified; Z80.3 Family history of malignant neoplasm of breast; Z3A.38 38 weeks gestation of pregnancy; O69.81X0 Labor and delivery complicated by cord around neck, without compression, not applicable or unspecified; O70.1 Second degree perineal laceration during delivery
CPT/HCPCS: 59025; 59050; 82565; 82570; 84156; 84450; 84460; 84550; 85027; 86780; 86850; 86900; 86901; 99221; A4216; G0378

== ENCOUNTER → 2025-04-17 | Outpatient (CLI) | payer OTHER, SELFPAY | END | disposition home or self-care (01) | LOC: LABSPEC 11:17 | PROVIDERS: Referring Provider Advanced Practice Midwife; Visit Provider Advanced Practice Midwife | DX: Z12.4 Encounter for screening for malignant neoplasm of cervix (principal) | CPT/HCPCS: 88175; G0145 ==